=== PATIENT | male | born 1940 | race Caucasian/White ===

== ENCOUNTER 2017-09-08 13:51 | Outpatient (CLI) | payer MEDICARE, BC | END 2017-09-08 13:52 | disposition critical access hospital (66) | LOC: EMS 13:51 | PROVIDERS: ATTEND Surgery | DX: R07.81 Pleurodynia (principal); R55 Syncope and collapse; W18.39XA Other fall on same level, initial encounter; Y92.002 Bathroom of unspecified non-institutional (private) residence as the place of occurrence of the external cause | CPT/HCPCS: A0425; A0427 ==

== ENCOUNTER 2017-09-08 14:26 | Emergency (ER) | payer MEDICARE, BC ==
--- NOTE | 2017-09-08 15:36 | ED Physician Documentation ---
PD HPI SYNCOPE - Stated complaint Stated Complaint: SYNCOPE, R SIDE RIB PAIN - Chief complaint Chief Complaint: Neuro - History obtained from History obtained from: Patient, Family - History of Present Illness Witnessed: Witnessed Timing - onset: Today (at 0200) Duration: Unknown Preceding symptoms: None Associated symptoms: None. No: Seizure, Incontinant of urine, Incontinant of stool, Headache, Vision changes, Chest pain, Palpitations, Diaphoresis, Dyspnea , Nausea / vomiting, Abdominal pain Contributing factors: Other (went to urinate) Injury occurred: Fell, Head injury. No: Neck injury, Bit tongue Pain level max: 8 Pain level now: 6 Similar symptoms before: Diagnosis (seen last week for same, justice placed in head for scalp laceration.) - Additional information Additional information: Patient is a 76-year-old male who got up in the middle of the night to go to the bathroom and had a syncopal event. heard him hit the ground and found him on the floor. He did lose consciousness. Similar event 5 days ago. Has a history of atrial fibrillation and "low blood pressure". Started having rib pain today so was brought in for evaluation. Has passed out 4 times in the past year. Sees Dr. Oleary for cardiology at [facility] in [place]. He is on Pradaxa for a blood thinner. Review of Systems Ten Systems: 10 systems reviewed and negative Constitutional: denies: Fever, Chills Ears: denies: Ear pain Nose: denies: Rhinorrhea / runny nose, Congestion Throat: denies: Sore throat Cardiac: denies: Chest pain / pressure Respiratory: denies: Cough GI: denies: Abdominal Pain, Nausea, Vomiting Skin: denies: Rash Musculoskeletal: denies: Neck pain, Back pain Neurologic: denies: Focal weakness, Numbness, Confused PD PAST MEDICAL HISTORY - Past Medical History Past Medical History: Yes Cardiovascular: Atrial fibrillation Neuro: None Endocrine/Autoimmune: None - Allergies Allergies/Adverse Reactions: Allergies Allergy/AdvReac Type Severity Reaction Status Date / Time Interferons Allergy Intermediate Anaphylaxis Verified 09/03/17 13:58 - Social History Does the pt smoke?: No Smoking Status: Never smoker Does the pt drink ETOH?: Yes ETOH Use: Wine Does the pt have substance abuse?: No PD ED PE NORMAL - Vitals Vital signs reviewed: Yes - General General: Alert and oriented X 3, No acute distress, Well developed/nourished - HEENT HEENT: Atraumatic, PERRL, EOMI, Ears normal, Moist mucous membranes - Neck Neck: Supple, no meningeal sign, No bony TTP - Cardiac Cardiac: RRR - Respiratory Respiratory: No respiratory distress, Other (decreased BS on the R. TTP along multiple right ribs 3-8.) - Abdomen Abdomen: Soft, Non tender, Non distended - Back Back: No spinal TTP - Derm Derm: Warm and dry - Extremities Extremities: Other (mild TTP over the R hip. o/w normal exam.) - Neuro Neuro: Alert and oriented X 3, legal referee 2-12 intact, No motor deficit, No sensory deficit, Normal speech - Psych Psych: Normal mood, Normal affect Results - Vitals Vitals: Vital Signs - 24 hr 09/08/17 09/08/17 14:27 17:32 Temperature 36.5 C Heart Rate 96 154 H Respiratory 18 13 Rate Blood Pressure 121/80 136/82 H O2 Saturation 92 96 Oxygen O2 Source Nasal cannula Oxygen Flow Rate 2 - EKG (time done) 1438 Rate: Rate (enter#) (89) Rhythm: Atrial fibrillation Davison: Normal QRS: Normal Ischemia: Non specific changes - Labs Labs: Laboratory Tests 09/08/17 09/08/17 09/08/17 15:41 15:41 15:41 WBC 9.5 RBC 3.92 L Hgb 13.1 L Hct 38.0 L MCV 97.0 H MCH 33.4 H MCHC 34.4 RDW 13.4 Plt Count 184 MPV 7.8 Neut # 8.1 H Lymph # 0.[address] [place] # 0.8 Eos # 0.0 Baso # 0.0 Absolute Nucleated RBC 0.00 Nucleated RBC % 0.0 Sodium 135 Potassium 4.5 Chloride 103 Carbon Dioxide 24 Anion Gap 8.0 BUN 21 H Creatinine 0.9 Estimated GFR (MDRD) 82 L Glucose 125 H Calcium 8.8 Total Bilirubin 1.5 H AST 27 ALT 18 Alkaline Phosphatase 43 Troponin I < 0.04 Total Protein 7.0 Albumin 3.7 Globulin 3.3 Albumin/Globulin Ratio 1.1 Lipase 13 L - Rads (name of study) ct head Radiology: Prelim report reviewed, EMP read contemporaneously, See rad report ( Normal head CT. ) ct chest Radiology: Prelim report reviewed, EMP read contemporaneously, See rad report ( Right lateral sixth through eighth and right posterior sixth through ninth rib fractures with small right pneumothorax and moderate right hemothorax. Multiple compression fractures, likely chronic. ) R hip xray Radiology: Prelim report reviewed, EMP read contemporaneously, See rad report ( Total right hip arthroplasty with longstem femoral component without evidence of hardware failure or loosening. The alignment is anatomic. ) cxr s/p chest tube Radiology: Prelim report reviewed, EMP read contemporaneously, See rad report ( chest tube inserted on the R side. re-expanded lung. ) Procedures - Chest Tube (location) right 5th middle axillary line Chest tube preparation: Consent obtained, Time out completed, Sterile prep and drape Chest tube location: Right, Intercostal space - enter (5), Mid axillary line Chest tube anesthesia: Lidocaine (2% with epi 10ml) Chest tube size: 32 Chest tube return: Air, Blood, Connected to suction, Other (sutured with 3-0 nylon as largest suture available.) Chest tube after care: Sutured, Confirmed with xray, Pt tolerated well PD MEDICAL DECISION MAKING - ED course Complexity details: reviewed results, re-evaluated patient, considered differential, d/w patient, d/w family, d/w software developer consultant ED course: Patient is a 76-year-old male with recurrent syncope, landed on the right side, has a right-sided flail chest with a hemopneumothorax. He is on Pradaxa. A chest tube was inserted with air and blood return. It was placed to waterseal. No acute findings on head CT or a right hip x-ray. Attempted to call [facility] in [place] as his cryptographic center specialist is there, but they have no ICU beds available, therefore [facility] was contacted. 1730 - Dr. Hernandez [facility] graciously accepts in transfer. Discussed praxbind, but as pt is stable, will hold at this time. Airlift is unable to fly for several hours because of weather. Will send by ground. 1745 Patient became tachycardic after the chest tube insertion, possible reaction to the epinephrine and the lidocaine versus reaction to the Versed? Heart rate was approximately 120 at the time of transfer. Blood pressure remained stable. Departure - Departure Disposition: 02 Transfer Acute Care Hosp Clinical Impression: Anticoagulant long-term use Hemothorax with pneumothorax, traumatic Qualifiers: Encounter type: initial encounter Qualified Code(s): S27.2XXA - Traumatic hemopneumothorax, initial encounter Syncope Qualifiers: Syncope type: unspecified Qualified Code(s): R55 - Syncope and collapse Flail chest Qualifiers: Encounter type: initial encounter Fracture type: closed Qualified Code(s): S22.5XXA - Flail chest, initial encounter for closed fracture Condition: Stable Discharge Date/Time: 09/08/17 18:00
[2017-09-08 15:47] LABS: BASOPHILS % (AUTO) 0.1 %; EOSINOPHILS % (AUTO) 0.2 %; HGB - HEMOGLOBIN 13.1 g/dL (14.0-18.0); LYMPHOCYTES # (AUTO) 0.5 10^3/uL (1.5-3.5); LYMPHOCYTES % (AUTO) 5.7 %; MEAN CORPUSCULAR HEMOGLOBIN 33.4 pg (27.0-31.0); MEAN CORPUSCULAR HGB CONC 34.4 g/dL (32.0-36.0); MEAN PLATELET VOLUME 7.8 fL (7.4-11.4); MONOCYTES # (AUTO) 0.8 10^3/uL (0.0-1.0); MONOCYTES % (AUTO) 8.1 %; NEUTROPHILS # (AUTO) 8.1 10^3/uL (1.5-6.6); NEUTROPHILS % (AUTO) 85.9 %; PLT - PLATELET COUNT 184 10^3/uL (130-450); RED BLOOD COUNT 3.92 10^6/uL (4.70-6.10); RED CELL DISTRIBUTION WIDTH 13.4 % (12.0-15.0); WHITE BLOOD COUNT 9.5 x10^3/uL (4.8-10.8)
[2017-09-08 16:00] LABS: ALBUMIN 3.7 g/dL (3.2-5.5); ALBUMIN/GLOBULIN RATIO 1.1 (1.0-2.2); BILIRUBIN,TOTAL 1.5 mg/dL (0.2-1.0); CALCIUM 8.8 mg/dL (8.5-10.3); CREATININE 0.9 mg/dL (0.6-1.2)
[2017-09-08] MEDS ORDERED: HYDROmorphone 1 MG/ML SYRINGE IVP STA (16:27)
[2017-09-08] MEDS ORDERED: LIDOCAINE 2%-EPI 1:100000 20 ML MDV SUBQ STA (16:28)
--- NOTE | 2017-09-08 16:32 | CT Report ---
EXAM: CT HEAD EXAM DATE: 09/08/2017 04:13 PM. CLINICAL HISTORY: Syncope. Head injury. COMPARISON: 09/03/2017. TECHNIQUE: Multiaxial CT images were obtained from the foramen magnum to the vertex. Reformats: Coron al. IV contrast: None. In accordance with CT protocol optimization, one or more of the following dose reduction techniques w ere utilized for this exam: automated exposure control, adjustment of mA and/or KV based on patient s ize, or use of iterative reconstructive technique. FINDINGS: Parenchyma: No intraparenchymal hemorrhage. No evidence of mass, midline shift, or CT findings of inf arction. Bains-white differentiation is distinct. Extraaxial Spaces: Normal for age. No subdural or epidural collections identified. Ventricles: Normal in size and position. Sinuses and Orbits: Imaged paranasal sinuses, orbits, and mastoids show no significant abnormality. Bones: No evidence of fracture or calvarial defect. Other: None. IMPRESSION: Normal head CT. [facility] Referring Provider Line: [phone] SITE ID: [id number]
[2017-09-08] MEDS ORDERED: MIDAZOLAM 2 MG/2 ML VIAL IVP STA (16:34)
--- NOTE | 2017-09-08 16:34 | XRAY Preliminary Report ---
Exam: XR HIP W/PELVIS 2-3V RT IMPRESSION: Total right hip arthroplasty with longstem femoral component without evidence of hardware failure or loosening. The alignment is anatomic. [facility] SITE ID: [id number]
--- NOTE | 2017-09-08 16:34 | XRAY Report ---
EXAM: RIGHT HIP AND PELVIS RADIOGRAPHY EXAM DATE: 09/08/2017 04:28 PM. HISTORY: Syncope, R hip pain. COMPARISONS: Pelvic radiograph dated 09/03/2017. TECHNIQUE: 1 view of the pelvis and 2 view of the hip. FINDINGS: Bones: Normal. No fracture or bone lesion. Joints: Total right hip arthroplasty with long stem femoral component is again demonstrated without e vidence of hardware failure or loosening. The alignment is anatomic. Soft Tissues: Normal. No soft tissue swelling. IMPRESSION: Total right hip arthroplasty with longstem femoral component without evidence of hardware failure or loosening. The alignment is anatomic. [facility] Referring Provider Line: [phone] SITE ID: [id number]
--- NOTE | 2017-09-08 16:56 | CT Report ---
EXAM: CT CHEST EXAM DATE: 09/08/2017 04:13 PM. CLINICAL HISTORY: Syncope. Right rib pain. COMPARISONS: None. TECHNIQUE: Routine helical CT imaging was performed through the chest. IV contrast: None. Reconstruct ions: Coronal and sagittal. In accordance with CT protocol optimization, one or more of the following dose reduction techniques w ere utilized for this exam: automated exposure control, adjustment of mA and/or KV based on patient s ize, or use of iterative reconstructive technique. FINDINGS: Lungs/Pleura: Small right pneumothorax and moderate right complex pleural effusion. Extensive right l ower lobe atelectasis. On the left, mild dependent atelectasis with no effusion or pneumothorax. Mediastinum: Mild aortic and coronary artery calcification. No adenopathy or masses. The heart and gr eat vessels are normal. Bones: Fractures of the right lateral sixth through eighth ribs and right posterior sixth through tapan th ribs. There are also old rib fractures on the right. There are multiple mild compression fractures including T4, T7, T10, and L1, likely chronic. Visualized Abdomen: Unremarkable. Other: None. IMPRESSION: 1. Right lateral sixth through eighth and right posterior sixth through ninth rib fractures with smal l right pneumothorax and moderate right hemothorax. 2. Multiple compression fractures, likely chronic. RAD[facility] The critical result notification system was initiated by Dr. Judson Torres at 16:48 hrs on 09/08/17. The above findings were discussed with Dr. Mojica by Dr. Judson Torres at 16:54 hrs on 09/08/17. Referring Provider Line: [phone] SITE ID: [id number]
[2017-09-08 17:33] VITALS: BP 136/82
--- NOTE | 2017-09-08 17:39 | XRAY Preliminary Report ---
Exam: XR CHEST 1 VIEW X-RAY IMPRESSION: 1. Small residual right-sided pneumothorax after placement of a chest tube. The effusion component ogden s decreased in size. Persistent right lower lobe atelectasis. 2. No left pneumothorax or effusion. 3. Mild cardiac enlargement. RADI SITE ID: [id number]
--- NOTE | 2017-09-08 18:09 | XRAY Report ---
EXAM: CHEST RADIOGRAPHY EXAM DATE: 09/08/2017 05:29 PM. CLINICAL HISTORY: Status post chest tube placement. COMPARISON: 09/08/2017. TECHNIQUE: 1 view. FINDINGS: Lungs/Pleura: Right-sided chest tube terminates in the mid medial right hemithorax. Small residual right-sided pneu mothorax. The largest pneumothorax component is identified right lung base. Mild perihilar interstiti al densities could represent areas of atelectasis. No large left pneumothorax or effusion. EKG leads overlie the chest. Mediastinum: Stable mild cardiac enlargement. Other: Multiple displaced posterior medial mid and lower right-sided rib fractures are again identifi ed but better seen on prior CT. IMPRESSION: 1. Small residual right-sided pneumothorax after placement of a chest tube. The effusion component ogden s decreased in size. Persistent right lower lobe atelectasis. 2. No left pneumothorax or effusion. 3. Mild cardiac enlargement. [facility] Referring Provider Line: [phone] SITE ID: [id number]
== END 2017-09-08 18:00 | disposition short-term general hospital (02) ==
LOC: EDUNIT# → ED 14:26
DX: S27.2XXA Traumatic hemopneumothorax, initial encounter (principal); S22.5XXA Flail chest, initial encounter for closed fracture; W18.39XA Other fall on same level, initial encounter; Y92.019 Unspecified place in single-family (private) house as the place of occurrence of the external cause; I48.91 Unspecified atrial fibrillation; Z79.01 Long term (current) use of anticoagulants
CPT/HCPCS: 32551; 36415; 70450; 71045; 71250; 73502; 80053; 83690; 84484; 85025; 93005; 96374; 99284; 99285; J1170

== ENCOUNTER 2017-09-08 18:07 | Outpatient (CLI) | payer BC, MEDICARE | END 2017-09-08 18:08 | disposition home or self-care (01) | LOC: EMS 18:07 | PROVIDERS: ATTEND Surgery | DX: S27.2XXA Traumatic hemopneumothorax, initial encounter (principal); W18.39XA Other fall on same level, initial encounter | CPT/HCPCS: A0170; A0425; A0427 ==

== ENCOUNTER 2017-10-17 11:12 | Outpatient (CLI) | payer MEDICARE, BC ==
--- NOTE | 2017-10-17 15:36 | XRAY Report ---
TWO VIEW CHEST: 10/17/2017 CLINICAL INDICATION: History of right pneumothorax with rib fractures, follow up. FINDINGS: Frontal and lateral views of the chest demonstrate a normal cardiac silhouette. The lungs are hyperinflated, compatible with COPD. Right pneumothorax has resolved. Right pleural thickening is present, and healing rib fractures are noted. The left lung is clear. IMPRESSION: RESOLUTION OF RIGHT PNEUMOTHORAX. MULTIPLE HEALING RIGHT RIB FRACTURES. RIGHT PLEURAL THICKENING. TD: 10/17/2017 15:35
== END 2017-10-17 11:13 | disposition home or self-care (01) ==
LOC: DI.S 11:12
PROVIDERS: ATTEND Registered Nurse
DX: S22.41XD Multiple fractures of ribs, right side, subsequent encounter for fracture with routine healing (principal); J92.9 Pleural plaque without asbestos
CPT/HCPCS: 71046

== ENCOUNTER 2017-11-03 06:36 | Outpatient (CLI) | payer MEDICARE, BC | END 2017-11-03 06:37 | disposition critical access hospital (66) | LOC: EMS 06:36 | PROVIDERS: ATTEND Surgery | DX: S01.01XA Laceration without foreign body of scalp, initial encounter (principal); Z79.01 Long term (current) use of anticoagulants; W19.XXXA Unspecified fall, initial encounter; Z91.81 History of falling; Y92.002 Bathroom of unspecified non-institutional (private) residence as the place of occurrence of the external cause | CPT/HCPCS: A0425; A0429 ==

== ENCOUNTER 2017-11-03 07:07 | Emergency (ER) | payer MEDICARE, BC ==
--- NOTE | 2017-11-03 07:20 | ED Physician Documentation ---
PD HPI SYNCOPE - Stated complaint Stated Complaint: GLF - History obtained from History obtained from: Patient, Family, EMS - History of Present Illness Witnessed: Unwitnessed Timing - onset: Enter time (0600), Today Duration: Seconds Preceding symptoms: Unknown Injury occurred: Fell, Head injury Similar symptoms before: Diagnosis (syncope with hypotension and multiple rib fractures) - Additional information Additional information: 77 y/o male with mild dementia has had a problem with pre-syncope for about a year now and he has had syncope about 2 months ago that caused multiple rib fractures and pneumothorax. He has recovered from that and he is in the process of continued work up for the syncope. He has hypotension with systolics in the 90's and he is in afib and on pradaxa. This morning he was in the bathroom and collapsed striking his head. He has a large laceration to the left occiput. He does not feel particularly bad right now. Feels he has a little blurring of the vision but not double vision. Review of Systems Constitutional: denies: Fever Eyes: reports: Decreased vision Ears: denies: Ear pain Nose: denies: Rhinorrhea / runny nose, Congestion Throat: denies: Sore throat Cardiac: denies: Chest pain / pressure, Palpitations Respiratory: denies: Dyspnea, Cough GI: denies: Abdominal Pain, Nausea, Vomiting, Constipation, Diarrhea : denies: Dysuria, Frequency Skin: denies: Rash Musculoskeletal: reports: Extremity pain. denies: Neck pain, Back pain Neurologic: reports: Confused, Headache, Head injury. denies: Generalized weakness, Focal weakness, Numbness PD PAST MEDICAL HISTORY - Past Medical History Cardiovascular: Atrial fibrillation Neuro: None Endocrine/Autoimmune: None - Present Medications Home Medications: Ambulatory Orders Medication Instructions Recorded Confirmed Alendronate Sodium 11/03/17 Dabigatran [Pradaxa] 11/03/17 Digoxin 11/03/17 Midodrine HCl 11/03/17 - Allergies Allergies/Adverse Reactions: Allergies Allergy/AdvReac Type Severity Reaction Status Date / Time Interferons Allergy Intermediate Anaphylaxis Verified 09/03/17 13:58 - Social History Does the pt smoke?: No Smoking Status: Never smoker Does the pt drink ETOH?: Yes Does the pt have substance abuse?: No PD ED PE NORMAL - Vitals Vital signs reviewed: Yes (tachy and hypertensive) - General General: No acute distress, Well developed/nourished, Other (The patient is alert and oreinted to place but not time. ) - HEENT HEENT: PERRL, EOMI, Other (There is a 5cm laceration to the left parietal/ occipital scalp, with a depressed skull fracture that is very tender in the center. ) - Neck Neck: Supple, no meningeal sign, No bony TTP - Cardiac Cardiac: RRR, No murmur - Respiratory Respiratory: No respiratory distress, Clear bilaterally - Abdomen Abdomen: Soft, Non tender - Back Back: No CVA TTP, No spinal TTP - Derm Derm: Normal color, Warm and dry, No rash - Extremities Extremities: No deformity, No edema - Neuro Neuro: customer service teller 2-12 intact, No motor deficit, No sensory deficit, Normal speech Eye Opening: Spontaneous Motor: Obeys Commands Verbal: Confused GCS Score: 14 - Psych Psych: Normal mood, Normal affect Results - Vitals Vitals: Vital Signs - 24 hr 11/03/17 11/03/17 07:09 08:36 Temperature 36.7 C Heart Rate 103 H Respiratory 16 Rate Blood Pressure 133/97 H O2 Saturation 100 Oxygen O2 Source Room air - EKG (time done) 0716 Rate: Rate (enter#) (96) [place]: RAD Ischemia: Normal ST segments Compare to prior EKG: Changed from prior EKG (SPT 09-08-17 QT interval is now normal ) Computer interpretation: Agree with computer - Labs Labs: Laboratory Tests 11/03/17 11/03/17 11/03/17 07:22 07:22 07:22 WBC 4.4 L RBC 4.46 L Hgb 13.8 L Hct 41.3 L MCV 92.5 MCH 30.9 MCHC 33.4 RDW 13.7 Plt Count 200 MPV 7.6 Neut # 3.2 Lymph # 0.8 L [place] # 0.3 Eos # 0.1 Baso # 0.0 Absolute Nucleated RBC 0.00 Nucleated RBC % 0.1 Sodium 138 Potassium 4.4 Chloride 105 Carbon Dioxide 26 Anion Gap 7.0 BUN 21 H Creatinine 0.8 Estimated GFR (MDRD) 93 Glucose 101 H Calcium 9.4 Total Bilirubin 0.6 AST 24 ALT 17 Alkaline Phosphatase 56 Troponin I < 0.04 Total Protein 7.7 Albumin 4.1 Globulin 3.6 Albumin/Globulin Ratio 1.1 Lipase 30 Cortisol AM Sample 11/03/17 07:22 WBC RBC Hgb Hct MCV MCH MCHC RDW Plt Count MPV Neut # Lymph # [place] # Eos # Baso # Absolute Nucleated RBC Nucleated RBC % Sodium Potassium Chloride Carbon Dioxide Anion Gap BUN Creatinine Estimated GFR (MDRD) Glucose Calcium Total Bilirubin AST ALT Alkaline Phosphatase Troponin I Total Protein Albumin Globulin Albumin/Globulin Ratio Lipase Cortisol AM Sample 24.4 - Rads (name of study) CT head without Radiology: Prelim report reviewed (Impression: 1. Acute depressed left parietal skull fracture. There is a small overlying scalp hematoma but no intracranial hemorrhage. 2. Generalized age-related cortical atrophic changes), EMP read indepedently, See rad report 2 veiw chest Radiology: Prelim report reviewed (Impression: 1. Chronic parenchymal and pleural changes of the right hemithorax stable. 2. No new disease.), EMP read indepedently, See rad report Procedures - Laceration (location) scalp Length in cm: 5 Wound type: Linear Neurovascular status: Sensory intact, Motor intact, Vascular intact Skin layer closure: Justice, Interrupted (2) Other: Patient tolerated well, No complications, Neurovascular intact, Dressing applied Complexity: Simple - IVC sono (time) 0710 Bedside IVC sono: IVC measures (cm) (1.01), IVC collapsed c insp (cm) (complete) , Dehydration (est 1 liter deficit) PD MEDICAL DECISION MAKING - ED course Complexity details: reviewed old records, reviewed results, re-evaluated patient , considered differential, d/w patient, d/w family ED course: 77-year-old male with a history of presyncope and syncope has had a syncopal episode this morning has fallen in his bathroom and has a depressed open skull fracture. He is on Pradaxa and there is no evidence of intracranial hemorrhage at this juncture. The patient has a nonfocal neurologic exam. Dr. Leavitt at [facility] is contacted in the case and recommends reversal of the pradaxa and transport to [facility]. The patient is administered 2.5mg praxbind X 2 and he will receive IV saline at 150ml/hr en-route with an estimated deficit of 1 liter by interrogation of the IVC. 2 justice are placed without anesthetic to the large laceration on the scalp and a dressing is applied. The patient's transport is changed from ground to air at the direction of medical control. Airlift had to abandon the flight related to weather and he is transported by ground. Departure - Departure Disposition: 02 Transfer Acute Care Hosp Clinical Impression: Dehydration Scalp laceration Qualifiers: Encounter type: initial encounter Qualified Code(s): S01.01XA - Laceration without foreign body of scalp, initial encounter Open skull fracture Qualifiers: Encounter type: initial encounter Skull bone/location: parietal bone Qualified Code(s): S02.0XXB - Fracture of vault of skull, initial encounter for open fracture
[2017-11-03 07:28] VITALS: BP 133/97
[2017-11-03 07:31] LABS: BASOPHILS % (AUTO) 0.6 %; EOSINOPHILS # (AUTO) 0.1 10^3/uL (0.0-0.7); EOSINOPHILS % (AUTO) 2.6 %; HGB - HEMOGLOBIN 13.8 g/dL (14.0-18.0); LYMPHOCYTES # (AUTO) 0.8 10^3/uL (1.5-3.5); LYMPHOCYTES % (AUTO) 17.7 %; MEAN CORPUSCULAR HEMOGLOBIN 30.9 pg (27.0-31.0); MEAN CORPUSCULAR HGB CONC 33.4 g/dL (32.0-36.0); MEAN CORPUSCULAR VOLUME 92.5 fL (80.0-94.0); MEAN PLATELET VOLUME 7.6 fL (7.4-11.4); MONOCYTES # (AUTO) 0.3 10^3/uL (0.0-1.0); MONOCYTES % (AUTO) 6.9 %; NEUTROPHILS # (AUTO) 3.2 10^3/uL (1.5-6.6); NEUTROPHILS % (AUTO) 72.2 %; PLT - PLATELET COUNT 200 10^3/uL (130-450); RED BLOOD COUNT 4.46 10^6/uL (4.70-6.10); RED CELL DISTRIBUTION WIDTH 13.7 % (12.0-15.0); WHITE BLOOD COUNT 4.4 x10^3/uL (4.8-10.8)
[2017-11-03 07:44] LABS: ALBUMIN 4.1 g/dL (3.2-5.5); ALBUMIN/GLOBULIN RATIO 1.1 (1.0-2.2); BILIRUBIN,TOTAL 0.6 mg/dL (0.2-1.0); CALCIUM 9.4 mg/dL (8.5-10.3); CREATININE 0.8 mg/dL (0.6-1.2); TOTAL PROTEIN 7.7 g/dL (6.7-8.2)
--- NOTE | 2017-11-03 08:01 | XRAY Report ---
EXAM: CHEST RADIOGRAPHY EXAM DATE: 11/03/2017 07:53 AM. CLINICAL HISTORY: Syncope. COMPARISON: 10/17/2017. 09/08/2017. TECHNIQUE: 2 views. FINDINGS: Lungs/Pleura: Chronic right midlung and right basilar parenchymal opacities likely parenchymal scarri ng. Right basilar and right lateral pleural thickening, unchanged. No new focal abnormality. No conso lidation. No vascular congestion. No pneumothorax. Mediastinum: Heart size and mediastinal contours are stable. Other: Healed right-sided rib fractures. Degenerative changes of the thoracic spine and both shoulder s. IMPRESSION: 1. Chronic parenchymal and pleural changes of the right hemithorax, stable. 2. No new acute disease. [facility] Referring Provider Line: [phone] SITE ID: [id number]
--- NOTE | 2017-11-03 08:11 | CT Report ---
EXAM: CT HEAD EXAM DATE: 11/03/2017 07:36 AM. CLINICAL HISTORY: Syncope, fall, head injury pradaxa. COMPARISON: 09/08/2017. TECHNIQUE: Multiaxial CT images were obtained from the foramen magnum to the vertex. Reformats: Coron al. IV contrast: None. In accordance with CT protocol optimization, one or more of the following dose reduction techniques w ere utilized for this exam: automated exposure control, adjustment of mA and/or KV based on patient s ize, or use of iterative reconstructive technique. FINDINGS: Parenchyma: No intraparenchymal hemorrhage. No evidence of mass, midline shift, or CT findings of acu te infarction. Bains-white differentiation is distinct. Diffuse mild chronic microangiopathic white ma tter changes are evident. Small intracranial gas along the falx, likely secondary to direct injury. Extraaxial Spaces: No subdural or epidural collections identified. Ventricles: The ventricles and cortical sulci are enlarged, consistent with age-related tissue loss. Sinuses and orbits: Imaged paranasal sinuses, orbits, and mastoids show no significant abnormality. Bones: Acute 4 cm diameter left parietal fracture with up to 8 mm depression. Other: Parietal scalp hematoma overlying the fracture IMPRESSION: 1. Acute depressed left parietal skull fracture. There is a small overlying scalp hematoma but no int racranial hemorrhage. 2. Generalized age-related cortical atrophic changes. RADIA The above findings were discussed with Dr. Owen by Dr. Kamran Fan at 08:04 hrs on 11/03/17. Referring Provider Line: [phone] SITE ID: [id number]
== END 2017-11-03 09:20 | disposition short-term general hospital (02) ==
LOC: EDUNIT# → ED 07:07
DX: S02.0XXB Fracture of vault of skull, initial encounter for open fracture (principal); W18.39XA Other fall on same level, initial encounter; Y92.002 Bathroom of unspecified non-institutional (private) residence as the place of occurrence of the external cause; E86.0 Dehydration; I48.91 Unspecified atrial fibrillation; Z79.01 Long term (current) use of anticoagulants
CPT/HCPCS: 12002; 36415; 70450; 71046; 80053; 82533; 83690; 84484; 85025; 93005; 96374; 99284; 99285

== ENCOUNTER 2017-11-03 09:23 | Outpatient (CLI) | payer MEDICARE, BC | END 2017-11-03 09:24 | disposition short-term general hospital (02) | LOC: EMS 09:23 | PROVIDERS: ATTEND Surgery | DX: S02.91XB Unspecified fracture of skull, initial encounter for open fracture (principal); W19.XXXA Unspecified fall, initial encounter | CPT/HCPCS: A0170; A0425; A0426 ==

== ENCOUNTER 2017-11-30 13:35 | Outpatient (CLI) | payer MEDICARE, BC | END 2017-11-30 13:36 | disposition home or self-care (01) | LOC: DI 13:35 | PROVIDERS: ATTEND Internal Medicine Cardiovascular Disease | DX: I95.1 Orthostatic hypotension (principal); I48.91 Unspecified atrial fibrillation | CPT/HCPCS: 93306 ==

== ENCOUNTER 2019-03-22 14:56 | Outpatient (CLI) | payer MEDICARE ==
--- NOTE | 2019-03-23 07:20 | XRAY Report ---
Reason: COUGH Procedure Date: 03/22/2019 Accession Number: [id number] / [id number] Procedure: XRS - Chest 2 View X-Ray CPT Code: 88452 FULL RESULT: EXAM: CHEST RADIOGRAPHY EXAM DATE: 03/22/2019 03:15 PM. CLINICAL HISTORY: Cough. COMPARISON: CHEST 2 VIEW 11/03/2017 7:35 AM CHEST W/O 09/08/2017 4:00 PM. TECHNIQUE: 2 views. FINDINGS: Lungs/Pleura: Large volumes. No focal pneumonia or overt edema. No pneumothorax or large effusion. Chronic blunting of the costophrenic angles, likely due to COPD. Mediastinum: Within exam limitations, cardiomediastinal contour is normal. Other: Old right rib fractures. IMPRESSION: COPD without acute process seen in the chest. RADIA
== END 2019-03-22 14:57 | disposition home or self-care (01) ==
LOC: DI.S 14:56
PROVIDERS: ATTEND Family Medicine
DX: J44.9 Chronic obstructive pulmonary disease, unspecified (principal)
CPT/HCPCS: 71046

== ENCOUNTER 2019-03-26 16:10 | Outpatient (CLI) | payer MEDICARE, BC | END 2019-03-26 16:11 | disposition critical access hospital (66) | LOC: EMS 16:10 | PROVIDERS: ATTEND Surgery | DX: R41.82 Altered mental status, unspecified (principal); R45.1 Restlessness and agitation; R50.9 Fever, unspecified | CPT/HCPCS: A0425; A0427 ==

== ENCOUNTER 2019-03-26 16:42 | Emergency (ER) | payer MEDICARE, BC ==
--- NOTE | 2019-03-26 16:53 | ED Physician Documentation ---
PD HPI ALTERED MENTAL STATUS - Stated complaint Stated Complaint: AMS - Chief complaint Chief Complaint: Neuro - History obtained from History obtained from: Patient, Family, EMS - History of Present Illness Timing - onset: Other (78-year-old gentleman with Lewy body dementia, atrial fibrillation. Most of the history is from the . About 4 to 5 days ago he started become fatigued. A little more cough than normal. He had an x-ray in the clinic that was reportedly negative. Today he had a shaking episode and appeared to have chills and subsequently was found to be febrile. He is also complaining that he has to urinate more.) Review of Systems Unable to obtain: AMS PD PAST MEDICAL HISTORY - Past Medical History Cardiovascular: Atrial fibrillation Endocrine/Autoimmune: None - Present Medications Home Medications: Ambulatory Orders Medication Instructions Recorded Confirmed Alendronate Sodium 2 tab PO OAW 11/03/17 03/26/19 Digoxin 1 tab PO DAILY 11/03/17 Amoxicillin 500 mg PO TID #20 capsule 03/26/19 Carbidopa/Levodopa 1 each PO TID 03/26/19 03/26/19 [Carbidopa-Levodopa 25-100 Tab] Donepezil HCl [Aricept] 10 mg PO DAILY 03/26/19 03/26/19 Fludrocortisone [Florinef] 3 tab PO DAILY 03/26/19 03/26/19 - Allergies Allergies/Adverse Reactions: Allergies Allergy/AdvReac Type Severity Reaction Status Date / Time Interferons Allergy Intermediate Anaphylaxis Verified 03/26/19 16:51 - Social History Does the pt smoke?: No Smoking Status: Never smoker Does the pt drink ETOH?: Yes Does the pt have substance abuse?: No - Immunizations Immunizations are current?: Yes - POLST Patient has POLST: Yes PD ED PE NORMAL - Vitals Vital signs reviewed: Yes - General General: Other (He is alert and cooperative but slow to answer questions.) - HEENT HEENT: PERRL, EOMI - Neck Neck: Supple, no meningeal sign, No bony TTP - Cardiac Cardiac: RRR, No murmur - Respiratory Respiratory: No respiratory distress, Clear bilaterally - Abdomen Abdomen: Soft, Non tender - Back Back: No CVA TTP, No spinal TTP - Derm Derm: Normal color, Warm and dry - Extremities Extremities: No edema, No calf tenderness / cord - Neuro Neuro: pediatric physical therapist 2-12 intact Eye Opening: Spontaneous Motor: Obeys Commands Verbal: Confused GCS Score: 14 Results - Vitals Vitals: Vital Signs - 24 hr 03/26/19 16:45 Temperature 38.7 C H Heart Rate 95 Respiratory 18 Rate Blood Pressure 162/104 H O2 Saturation 97 Oxygen O2 Source Room air - Labs Labs: Laboratory Tests 03/26/19 03/26/19 03/26/19 17:00 17:00 17:00 WBC 5.4 RBC 3.99 L Hgb 13.1 L Hct 39.3 L MCV 98.5 H MCH 32.8 H MCHC 33.3 RDW 12.5 Plt Count 196 MPV 8.8 Neut # (Auto) 4.6 Lymph # (Auto) 0.3 L [place] # (Auto) 0.5 Eos # (Auto) 0.0 Baso # (Auto) 0.0 Absolute Nucleated RBC 0.00 Nucleated RBC % 0.0 PT 13.8 H INR 1.2 APTT 27.6 Sodium 140 Potassium 3.5 Chloride 100 L Carbon Dioxide 29 Anion Gap 11.0 BUN 14 Creatinine 1.0 Estimated GFR (MDRD) 72 L Glucose 126 H Lactic Acid Calcium 8.9 Total Bilirubin 0.8 AST 20 ALT < 10 L Alkaline Phosphatase 37 L Total Protein 7.3 Albumin 3.7 Globulin 3.6 Albumin/Globulin Ratio 1.0 Lipase 26 Urine Color Urine Clarity Urine pH Ur Specific [place] Urine Protein Urine Glucose (UA) Urine Ketones Urine Occult Blood Urine Nitrite Urine Bilirubin Urine Urobilinogen Ur Leukocyte Esterase Ur Microscopic Review Urine Culture Comments Last Dose Date Last Dose Time Digoxin 03/26/19 03/26/19 03/26/19 17:00 17:00 17:11 WBC RBC Hgb Hct MCV MCH MCHC RDW Plt Count MPV Neut # (Auto) Lymph # (Auto) [place] # (Auto) Eos # (Auto) Baso # (Auto) Absolute Nucleated RBC Nucleated RBC % PT INR APTT Sodium Potassium Chloride Carbon Dioxide Anion Gap BUN Creatinine Estimated GFR (MDRD) Glucose Lactic Acid 0.9 Calcium Total Bilirubin AST ALT Alkaline Phosphatase Total Protein Albumin Globulin Albumin/Globulin Ratio Lipase Urine Color YELLOW Urine Clarity CLEAR Urine pH 7.5 Ur Specific [place] 1.020 Urine Protein NEGATIVE Urine Glucose (UA) NEGATIVE Urine Ketones NEGATIVE Urine Occult Blood NEGATIVE Urine Nitrite NEGATIVE Urine Bilirubin NEGATIVE Urine Urobilinogen 0.2 (NORMAL) Ur Leukocyte Esterase NEGATIVE Ur Microscopic Review NOT INDICATED Urine Culture Comments NOT INDICATED Last Dose Date UNKNOWN Last Dose Time UNKNOWN Digoxin 0.3 PD MEDICAL DECISION MAKING - ED course ED course: This is a 78-year-old gentleman with Lewy body dementia and Parkinson's who presents with shaking chills and a fever today, no clear source on work-up or exam. No evidence of meningitis clinically. Lab work was benign with clear chest x-ray, normal white count, negative lactate. is a sole home caregiver and they were offered observation in the hospital which they declined preferring discharge. Given his advanced age and comorbidities antibiotics were given. Departure - Departure Disposition: Home, Self Care Clinical Impression: Lewy body dementia Qualifiers: Dementia behavioral disturbance: with behavioral disturbance Qualified Code(s): G31.83 - Dementia with Lewy bodies; F02.81 - Dementia in other diseases classified elsewhere with behavioral disturbance Fever Qualifiers: Fever type: due to other condition Qualified Code(s): R50.81 - Fever presenting with conditions classified elsewhere Condition: Good Record reviewed to determine appropriate education?: Yes Instructions: ED Fever Unconf Cause Prescriptions: Amoxicillin 500 mg PO TID #20 capsule Comments: As discussed, I think that Mr. Colon probably has a flulike illness. Return anytime if worsening or in a few days with your doctor if not improved.
[2019-03-26 17:08] LABS: EOSINOPHILS % (AUTO) 0.4 %; HGB - HEMOGLOBIN 13.1 g/dL (14.0-18.0); LYMPHOCYTES # (AUTO) 0.3 10^3/uL (1.5-3.5); LYMPHOCYTES % (AUTO) 5.2 %; MEAN CORPUSCULAR HEMOGLOBIN 32.8 pg (27.0-31.0); MEAN CORPUSCULAR HGB CONC 33.3 g/dL (32.0-36.0); MEAN CORPUSCULAR VOLUME 98.5 fL (80.0-94.0); MEAN PLATELET VOLUME 8.8 fL (7.4-11.4); MONOCYTES # (AUTO) 0.5 10^3/uL (0.0-1.0); MONOCYTES % (AUTO) 8.3 %; NEUTROPHILS # (AUTO) 4.6 10^3/uL (1.5-6.6); NEUTROPHILS % (AUTO) 85.7 %; PLT - PLATELET COUNT 196 10^3/uL (130-450); RED BLOOD COUNT 3.99 10^6/uL (4.70-6.10); RED CELL DISTRIBUTION WIDTH 12.5 % (12.0-15.0); WHITE BLOOD COUNT 5.4 x10^3/uL (4.8-10.8)
[2019-03-26 17:19] LABS: BILIRUBIN,URINE NEGATIVE (NEGATIVE); GLUCOSE, URINE (UA) NEGATIVE (NEGATIVE); KETONES,URINE (UA) NEGATIVE (NEGATIVE); LEUKOCYTE ESTERASE, URINE NEGATIVE (NEGATIVE); NITRITE,URINE NEGATIVE (NEGATIVE); OCCULT BLOOD,URINE NEGATIVE (NEGATIVE); PH,URINE 7.5 PH (5.0-7.5); PROTEIN,URINE NEGATIVE (NEGATIVE); UROBILINOGEN,URINE 0.2 (NORMAL) E.U./dL (NORMAL)
[2019-03-26 17:20] LABS: INR 1.2 (0.8-1.2); PT - PROTHROMBIN TIME 13.8 secs (9.9-12.6)
[2019-03-26 17:21] LABS: CLARITY,URINE CLEAR (CLEAR)
[2019-03-26 17:23] LABS: ALBUMIN 3.7 g/dL (3.2-5.5); ALKALINE PHOSPHATASE 37 IU/L (42-121); ALT ALANINE AMINOTRANSFERASE < 10 IU/L (10-60); AST ASPARTATE AMINOTRANSFERASE 20 IU/L (10-42); BILIRUBIN,TOTAL 0.8 mg/dL (0.2-1.0); BUN - BLOOD UREA NITROGEN 14 mg/dL (6-20); CALCIUM 8.9 mg/dL (8.5-10.3); CARBON DIOXIDE - CO2 29 mmol/L (21-32); CHLORIDE 100 mmol/L (101-111); GFR - MDRD 72 (>89); GLUCOSE 126 mg/dL (70-100); LIPASE 26 U/L (22-51); SODIUM 140 mmol/L (135-145); TOTAL PROTEIN 7.3 g/dL (6.7-8.2)
[2019-03-26 17:27] LABS: DIGOXIN 0.3 ng/mL; PARTIAL THROMBOPLASTIN TIME 27.6 secs (24.9-33.3)
--- NOTE | 2019-03-26 17:52 | XRAY Report ---
Reason: cough fever Procedure Date: 03/26/2019 Accession Number: [id number] / [id number] Procedure: XR - Chest 1 View X-Ray CPT Code: 85364 FULL RESULT: EXAM: CHEST RADIOGRAPHY EXAM DATE: 03/26/2019 05:20 PM. CLINICAL HISTORY: Cough fever. COMPARISON: CHEST 2 VIEW 03/22/2019 3:18 PM. TECHNIQUE: 1 view. FINDINGS: Lungs/Pleura: No dense consolidation. No pneumothorax. Stable mild blunting of the costophrenic sulci. Changes of COPD. Mediastinum: Heart and mediastinal contours are unremarkable. Other: Old right-sided rib fractures. IMPRESSION: No interval change. Stable mild pleural thickening or effusion bilaterally. COPD. RADIA
[2019-03-26] MEDS ORDERED: AMOXICILLIN 250 MG CAPSULE PO STA (18:16)
[2019-03-26 18:34] VITALS: BP 156/90
== END 2019-03-26 18:34 | disposition home or self-care (01) ==
LOC: EDUNIT# → ED 16:42
DX: G31.83 Neurocognitive disorder with Lewy bodies (principal); F02.81 Dementia in other diseases classified elsewhere, unspecified severity, with behavioral disturbance; R50.81 Fever presenting with conditions classified elsewhere; I48.91 Unspecified atrial fibrillation
CPT/HCPCS: 36415; 71045; 80053; 80162; 81003; 83605; 83690; 85025; 85610; 85730; 87040; 99281; 99283; A9270; 81001; 87086

== ENCOUNTER 2019-05-02 13:39 | Outpatient (CLI) | payer MEDICARE, BC ==
[2019-05-02 14:04] LABS: CALCIUM 9.2 mg/dL (8.5-10.3); CREATININE 1.1 mg/dL (0.6-1.2)
== END 2019-05-02 13:40 | disposition home or self-care (01) ==
LOC: LAB 13:39
PROVIDERS: ATTEND Internal Medicine Cardiovascular Disease
DX: I48.2 Chronic atrial fibrillation (principal)
CPT/HCPCS: 36415; 80048

== ENCOUNTER 2019-05-03 15:46 | Emergency (ER) | payer MEDICARE, BC ==
[2019-05-03 16:06] VITALS: BP 158/86
--- NOTE | 2019-05-03 16:48 | ED Physician Documentation ---
PD HPI UPPER EXT INJURY - Stated complaint Stated Complaint: LT SHOULDER PX - Chief complaint Chief Complaint: Ext Problem - History obtained from History obtained from: Patient, Family () - History of Present Illness Location: Left, Shoulder Type of injury: Fall Where injury occurred: Home Timing - onset: How many minutes ago (30) Worsened by: Moving, Palpating Similar symptoms before: Has not had sx before - Additonal information Additional information: The patient is a 78-year-old male with a history of Lewy body dementia, Parkinsons disease, frequent falls, osteoporosis, and previous skull fracture, who presents with pain in his left shoulder after falling off a stool impacting his left shoulder on concrete floor about one half hour prior to arrival. He denies any other injuries. He did not hit his head or lose consciousness. He has been ambulatory since the incident occurred, but complains of pain in his left shoulder, particularly with movement. He is right hand dominant. Review of Systems Constitutional: denies: Fever Ears: denies: Tinnitus/ringing Nose: denies: Congestion Cardiac: denies: Chest pain / pressure Respiratory: denies: Dyspnea, Cough GI: denies: Abdominal Pain, Nausea, Vomiting : denies: Dysuria Skin: denies: Abrasion (s), Laceration (s) Musculoskeletal: reports: Extremity pain (left shoulder.). denies: Neck pain, Back pain Neurologic: denies: Focal weakness, Numbness, Headache, Head injury, LOC PD PAST MEDICAL HISTORY - Past Medical History Past Medical History: Yes Cardiovascular: Atrial fibrillation Respiratory: None Neuro: Dementia, Parkinson's Endocrine/Autoimmune: None GI: None : Incontinence HEENT: None Psych: None Derm: None Other Past Medical History: lewy body dementia - Past Surgical History Past Surgical History: Yes Ortho: Hip replacement - Present Medications Home Medications: Ambulatory Orders Medication Instructions Recorded Confirmed Alendronate Sodium 2 tab PO OAW 11/03/17 03/26/19 Digoxin 1 tab PO DAILY 11/03/17 Amoxicillin 500 mg PO TID #20 capsule 03/26/19 Carbidopa/Levodopa 1 each PO TID 03/26/19 03/26/19 [Carbidopa-Levodopa 25-100 Tab] Donepezil HCl [Aricept] 10 mg PO DAILY 03/26/19 03/26/19 Fludrocortisone [Florinef] 3 tab PO DAILY 03/26/19 03/26/19 - Allergies Allergies/Adverse Reactions: Allergies Allergy/AdvReac Type Severity Reaction Status Date / Time Interferons Allergy Intermediate Anaphylaxis Verified 05/03/19 15:50 - Social History Does the pt smoke?: No Smoking Status: Never smoker Does the pt drink ETOH?: Yes Does the pt have substance abuse?: No - Immunizations Immunizations are current?: Yes - POLST Patient has POLST: Yes PD ED PE NORMAL - Vitals Vital signs reviewed: Yes (initially hypertensive.) - General General: Well developed/nourished, Other (alert, elderly male who is oriented 2, and defers to his for answers to questions.) - HEENT HEENT: Atraumatic, EOMI - Neck Neck: No bony TTP - Cardiac Cardiac: Other (Regular rate, irregularly irregular rhythm.) - Respiratory Respiratory: No respiratory distress, Clear bilaterally, Other (No chest wall tenderness to palpation.) - Abdomen Abdomen: Soft, Non tender - Back Back: No spinal TTP - Derm Derm: No rash - Extremities Extremities: No deformity, Other (There is tenderness to palpation at the proximal humerus. Distal neurovascular is intact.) - Neuro Neuro: No motor deficit, Normal speech, Other (Alert, oriented 2. No acute focal motor deficit detected.) Results - Vitals Vitals: Oxygen O2 Source Room air - Rads (name of study) Left shoulder Radiology: Prelim report reviewed, EMP read contemporaneously, See rad report (Greater tuberosity, proximal humeral fracture.) PD MEDICAL DECISION MAKING - ED course Complexity details: reviewed results, re-evaluated patient, considered differential, d/w patient, d/w family ED course: The patient's presentation is significant for fracture of the greater tuberosity of the left proximal humerus. No other injuries are identified on physical examination. Treatment in the emergency department included application of an arm sling. I discussed with the patient and his expected course of injury, symptomatic treatment and outpatient follow-up, as well as potentially worrisome signs or symptoms that should prompt reevaluation in the emergency department. Departure - Departure Disposition: 01 Home, Self Care Clinical Impression: Fracture of proximal humerus Qualifiers: Encounter type: initial encounter Fracture type: closed Fracture morphology: other fracture Fracture alignment: nondisplaced Laterality: left Qualified Code(s): S42.295A - Other nondisplaced fracture of upper end of left humerus, initial encounter for closed fracture Lewy body dementia Qualifiers: Dementia behavioral disturbance: without behavioral disturbance Qualified Code(s): G31.83 - Dementia with Lewy bodies Condition: Stable Instructions: ED Fx Shoulder Follow-Up: Gagandeep Wallace MD [Provider Admit Priv/Credential] - [facility] [Provider Group] Comments: Wear the arm sling except when bathing. Apply ice pack to your left shoulder intermittently for the next several days. You can use Tylenol or ibuprofen if needed for pain. Follow-up with orthopedic surgery within 1 to 2 weeks. Call to schedule an appointment. Return to the emergency department if you develop markedly increasing pain, or otherwise worsening symptoms. Discharge Date/Time: 05/03/19 16:59
--- NOTE | 2019-05-03 16:51 | XRAY Report ---
Reason: left shoulder injury Procedure Date: 05/03/2019 Accession Number: [id number] / [id number] Procedure: XR - Shoulder 3 View LT CPT Code: FULL RESULT: EXAM: LEFT SHOULDER RADIOGRAPHY EXAM DATE: 05/03/2019 04:35 PM. CLINICAL HISTORY: Left shoulder injury. COMPARISON: None. TECHNIQUE: 3 views. FINDINGS: Bones: Greater tuberosity, proximal humeral vertical fracture. Joints: Glenohumeral osteophyte. AC joint hypertrophy. Soft tissues: The visualized hemithorax is unremarkable. No soft tissue swelling. IMPRESSION: Greater tuberosity, proximal humeral fracture RADIA
== END 2019-05-03 16:59 | disposition home or self-care (01) ==
LOC: ED 15:46
DX: S42.255A Nondisplaced fracture of greater tuberosity of left humerus, initial encounter for closed fracture (principal); W08.XXXA Fall from other furniture, initial encounter; Y93.89 Activity, other specified; Y92.009 Unspecified place in unspecified non-institutional (private) residence as the place of occurrence of the external cause; G20 Parkinson's disease; F02.80 Dementia in other diseases classified elsewhere, unspecified severity, without behavioral disturbance, psychotic disturbance, mood disturbance, and anxiety; M81.0 Age-related osteoporosis without current pathological fracture; Z91.81 History of falling
CPT/HCPCS: 99283; 99284

== ENCOUNTER 2020-10-04 19:22 | Outpatient (CLI) | payer MEDICARE | END 2020-10-04 19:23 | disposition critical access hospital (66) | LOC: EMS 19:22 | PROVIDERS: ATTEND Emergency Medicine | DX: M25.511 Pain in right shoulder (principal); M25.551 Pain in right hip | CPT/HCPCS: A0425; A0429 ==

== ENCOUNTER 2020-10-04 20:00 | Emergency (ER) | payer BC, MEDICARE ==
--- NOTE | 2020-10-04 20:09 | ED Physician Documentation ---
PD HPI Fall - Stated complaint Stated Complaint: GLF - History obtained from History obtained from: Patient, Family (), EMS - Additional information Additional information: 80-year-old gentleman with Lewy body dementia. He was at home with his and started to fall and kind of fell on her. He injured his right arm. There was also concern about a hip injury but he has been ambulatory and is not complaining of hip pain. Review of Systems Unable to obtain: Dementia PD PAST MEDICAL HISTORY - Past Medical History Cardiovascular: Atrial fibrillation Respiratory: None Neuro: Dementia, Parkinson's Endocrine/Autoimmune: None GI: None : Incontinence HEENT: None Psych: None Derm: None - Past Surgical History Past Surgical History: Yes Ortho: Hip replacement - Present Medications Home Medications: Ambulatory Orders Medication Instructions Recorded Confirmed Alendronate Sodium 2 tab PO OAW 11/03/17 10/04/20 Digoxin 1 tab PO DAILY 11/03/17 10/04/20 Carbidopa/Levodopa 1 each PO QID 03/26/19 10/04/20 [Carbidopa-Levodopa 25-100 Tab] Donepezil HCl [Aricept] 10 mg PO DAILY 03/26/19 10/04/20 Fludrocortisone [Florinef] 0.2 tab PO DAILY 03/26/19 10/04/20 Mirtazapine [Remeron] 30 mg PO QPM 10/04/20 10/04/20 - Allergies Allergies/Adverse Reactions: Allergies Allergy/AdvReac Type Severity Reaction Status Date / Time Interferons Allergy Severe Anaphylaxis Verified 10/04/20 20:16 ribavirin Allergy Unknown Verified 10/04/20 20:16 Benzodiazepines AdvReac Unknown Verified 10/04/20 20:17 Anesthesia AdvReac Unknown Uncoded 10/04/20 20:17 Anticholinergics AdvReac Unknown Uncoded 10/04/20 20:17 Antipsychotics AdvReac Unknown Uncoded 10/04/20 20:17 Opiates AdvReac Unknown Uncoded 10/04/20 20:17 Sedatives AdvReac Unknown Uncoded 10/04/20 20:17 - Social History Does the pt smoke?: No Smoking Status: Never smoker Does the pt drink ETOH?: Yes Does the pt have substance abuse?: No - Immunizations Immunizations are current?: Yes - POLST Patient has POLST: Yes PD ED PE NORMAL - Vitals Vital signs reviewed: Yes - General General: No acute distress, Other (He is alert and oriented to person and place and events but not date.) - HEENT HEENT: PERRL, EOMI - Neck Neck: Supple, no meningeal sign, No bony TTP - Cardiac Cardiac: RRR, No murmur - Respiratory Respiratory: No respiratory distress, Clear bilaterally - Abdomen Abdomen: Normal bowel sounds, Soft, Non tender - Back Back: No CVA TTP, No spinal TTP - Derm Derm: Normal color, Warm and dry - Extremities Extremities: Other (Quite tender to the right upper humerus. Cannot range the shoulder. Normal neurovascular function in the right hand. Right hip is nontender and painless internal and external rotation.) - Neuro Neuro: No motor deficit, No sensory deficit Results - Vitals Vitals: Vital Signs - 24 hr 10/04/20 20:00 Temperature 36.5 C Heart Rate 65 Respiratory 17 Rate Blood Pressure 174/106 H O2 Saturation 95 Oxygen O2 Source Room air - Rads (name of study) Right humerus x-ray Radiology: EMP read contemporaneously (Minimally displaced avulsion fracture of the greater tuberosity of the proximal right humerus) Departure - Departure Disposition: 01 Home, Self Care Clinical Impression: Right humeral fracture Qualifiers: Encounter type: initial encounter Humerus Location: greater tuberosity Fracture type: closed Fracture alignment: nondisplaced Qualified Code(s): S42.254A - Nondisplaced fracture of greater tuberosity of right humerus, initial encounter for closed fracture Condition: Good Record reviewed to determine appropriate education?: Yes Instructions: ED Fx Upper Ext Follow-Up: [facility] [Provider Group] - Within 1 week Comments: Stuart should followup in the orthopedics clinic within the week, call tomorrow for an appointment. Keep sling on til then. Tylenol per package instruction as needed for pain.
--- NOTE | 2020-10-04 20:45 | XRAY Report ---
PROCEDURE: Humerus RT INDICATIONS: arm inj fall TECHNIQUE: views of the humerus were acquired. COMPARISON: None FINDINGS: Bones: Mildly displaced fracture through the base of the greater tuberosity of the proximal humerus Soft tissues: No suspicious soft tissue calcifications. IMPRESSION: Minimally displaced avulsion fracture of the greater tuberosity. Reviewed by: Penelope Funk MD, PhD on 10/04/2020 8:43 PM PST Approved by: Penelope Funk MD, PhD on 10/04/2020 8:43 PM PST Station ID: [id number]
[2020-10-04 21:12] VITALS: BP 168/97
== END 2020-10-04 21:24 | disposition home or self-care (01) ==
LOC: ED 20:00
DX: S42.254A Nondisplaced fracture of greater tuberosity of right humerus, initial encounter for closed fracture (principal); W18.30XA Fall on same level, unspecified, initial encounter; Y92.009 Unspecified place in unspecified non-institutional (private) residence as the place of occurrence of the external cause; G31.83 Neurocognitive disorder with Lewy bodies; F02.80 Dementia in other diseases classified elsewhere, unspecified severity, without behavioral disturbance, psychotic disturbance, mood disturbance, and anxiety
CPT/HCPCS: 99281; 99283

== ENCOUNTER 2020-11-02 12:09 | Outpatient (CLI) | payer MEDICARE | END 2020-11-02 12:10 | disposition critical access hospital (66) | LOC: EMS 12:09 | PROVIDERS: ATTEND Emergency Medicine | DX: M25.552 Pain in left hip (principal) | CPT/HCPCS: A0425; A0429 ==

== ENCOUNTER 2020-11-02 12:25 | Emergency (ER) | payer MEDICARE ==
--- NOTE | 2020-11-02 12:52 | ED Physician Documentation ---
PD HPI Fall - Stated complaint Stated Complaint: GLF - Chief complaint Chief Complaint: Trauma Hd/Nk - History obtained from History obtained from: Patient, EMS - History of Present Illness Mechanism of injury: Lost balance Fall distance: Standing position Where injury occurred: Home Timing - onset: Today Injury(ies) location: Head, Left Lower Extremity Quality of pain: Pain Associated symptoms: No: LOC, AMS Symptoms improve with: Rest Worsens with: Movement, Palpation Contributing factors: No: Anticoagulated Similar symptoms before: Diagnosis (hip contusion) Recently seen: Not recently seen - Additional information Additional information: 80-year-old male with a history of Parkinson's and dementia has a caregiver at home and he is supposed to be using a walker. Today he went to reach for some candy was not using his walker and fell forward landing on his left hip. He has a and a abrasion to his head he did not get have loss of consciousness he denies any pain to his neck and he has no shortening or rotation but he does have some pain to the left hip area and pain with weightbearing the pain appears to be centered in the groin. Review of Systems Constitutional: denies: Fever Eyes: denies: Decreased vision Ears: denies: Ear pain Nose: denies: Congestion Throat: denies: Sore throat Cardiac: denies: Chest pain / pressure Respiratory: denies: Dyspnea, Cough GI: denies: Abdominal Pain, Nausea, Vomiting : denies: Dysuria, Frequency Skin: denies: Rash Musculoskeletal: reports: Extremity pain, Joint pain, Pain with weight bearing. denies: Neck pain, Back pain Neurologic: denies: Generalized weakness, Focal weakness, Numbness PD PAST MEDICAL HISTORY - Past Medical History Past Medical History: Yes Cardiovascular: Atrial fibrillation Respiratory: None Neuro: Dementia, Parkinson's Endocrine/Autoimmune: None GI: None : Incontinence HEENT: None Psych: None Derm: None - Past Surgical History Past Surgical History: Yes Ortho: Hip replacement - Present Medications Home Medications: Ambulatory Orders Medication Instructions Recorded Confirmed Alendronate Sodium 2 tab PO OAW 11/03/17 11/02/20 Digoxin 1 tab PO DAILY 11/03/17 11/02/20 Carbidopa/Levodopa 1 each PO QID 03/26/19 11/02/20 [Carbidopa-Levodopa 25-100 Tab] Fludrocortisone [Florinef] 0.2 tab PO DAILY 03/26/19 11/02/20 Mirtazapine [Remeron] 30 mg PO QPM 10/04/20 11/02/20 Magnesium Citrate 150 mg PO DAILY 11/02/20 11/02/20 Meloxicam [Mobic] 7.5 mg PO BID PRN #20 tablet 11/02/20 - Allergies Allergies/Adverse Reactions: Allergies Allergy/AdvReac Type Severity Reaction Status Date / Time Interferons Allergy Severe Anaphylaxis Verified 11/02/20 12:35 ribavirin Allergy Unknown Verified 11/02/20 12:35 Benzodiazepines AdvReac Unknown Verified 11/02/20 12:35 Anesthesia AdvReac Unknown Uncoded 11/02/20 12:35 Anticholinergics AdvReac Unknown Uncoded 11/02/20 12:35 Antipsychotics AdvReac Unknown Uncoded 11/02/20 12:35 Opiates AdvReac Unknown Uncoded 11/02/20 12:35 Sedatives AdvReac Unknown Uncoded 11/02/20 12:35 - Social History Does the pt smoke?: No Smoking Status: Never smoker Does the pt drink ETOH?: Yes Does the pt have substance abuse?: No - Immunizations Immunizations are current?: Yes - POLST Patient has POLST: Yes PD ED PE NORMAL - Vitals Vital signs reviewed: Yes (hypertension) - General General: No acute distress, Well developed/nourished, Other (alert and interactive with delay in execution of motor commands. ) - HEENT HEENT: PERRL, EOMI, Other (There is an abrasion to the scalp anteriorly without depression or crepitance there is no other tenderness to the skull.) - Neck Neck: Supple, no meningeal sign, No bony TTP - Cardiac Cardiac: RRR, No murmur - Respiratory Respiratory: No respiratory distress, Clear bilaterally - Back Back: No CVA TTP, No spinal TTP - Derm Derm: Normal color, Warm and dry, No rash - Extremities Extremities: No deformity, No edema - Neuro Neuro: Alert and oriented X 3, it telecom technician 2-12 intact, No motor deficit, No sensory deficit, Normal speech Eye Opening: Spontaneous Motor: Obeys Commands Verbal: Oriented GCS Score: 15 - Psych Psych: Normal mood, Normal affect Results - Vitals Vitals: Vital Signs - 24 hr 11/02/20 11/02/20 11/02/20 12:30 12:36 13:52 Temperature 36.2 C L 36.2 C L Heart Rate 55 L 65 71 Respiratory 16 15 20 Rate Blood Pressure 135/93 H 135/93 H 146/97 H O2 Saturation 93 93 93 11/02/20 13:56 Temperature 36.7 C Heart Rate Respiratory Rate Blood Pressure O2 Saturation Oxygen O2 Source Room air - Rads (name of study) Lhip & pelvis Radiology: Prelim report reviewed (Impression: 1. No displaced left hip fracture. If there are persistent symptoms or continued clinical concern for pathology can, then advanced imaging (CT, MRI, bone scan) should be considered for further evaluation. Fracture of the superior left pubic ramus), EMP read indepedently, See rad report PD MEDICAL DECISION MAKING - ED course Complexity details: reviewed old records, reviewed results, re-evaluated patient, considered differential, d/w patient ED course: 80-year-old male who has had a fall in his home from ground-level has fallen onto his left hip he is able to stand at the side of the bed and shuffle he has pain associated with this and has a fracture of the superior pubic ramus on the left side. Departure - Departure Disposition: 01 Home, Self Care Clinical Impression: Fracture of superior pubic ramus Qualifiers: Encounter type: initial encounter Fracture type: closed Laterality: left Qualified Code(s): S32.512A - Fracture of superior rim of left pubis, initial encounter for closed fracture Condition: Stable Instructions: ED Fx Pelvis Follow-Up: Gagandeep Wallace MD [Primary Care Provider] - Prescriptions: Meloxicam [Mobic] 7.5 mg PO BID PRN #20 tablet PRN Reason: Pain Comments: For the next several weeks it will be very difficult to get in and out of bed and the recommendation is you have help for this every time you get out of bed and do not try to get out of bed by herself. For pain control the recommendation is to take the Mobic twice per day on a regular basis and to use Tylenol 650 mg every 6 hours. The recommendation is to take these medicines regularly. Within the next week adjustments to this dosage regimen should be made by her primary care doctor.
--- NOTE | 2020-11-02 13:36 | XRAY Report ---
PROCEDURE: Hip w/Pelvis 2-3V LT INDICATIONS: fall groin pain to the left TECHNIQUE: AP pelvis with lateral view(s) of the left hip(s). COMPARISON: None. FINDINGS: Bones: Postsurgical changes compatible with right hip arthroplasty noted. Orthopedic hardware is inta ct. No lucencies at the bone-hardware interface. Mildly displaced fracture involving the left superio r pubic ramus. No left hip fractures or dislocations. [id number] left hip osteoarthritis. Pelvi c ring appears intact. No suspicious bony lesions. Soft tissues: The visualized bowel gas pattern is normal. No suspicious soft tissue calcifications. IMPRESSION: 1. No displaced left hip fracture. If there are persistent symptoms or continued clinical concern for pathology, then advanced imaging (CT, MR, bone scan) should be considered for further evaluation. 2. Fracture of the superior left pubic ramus. Reviewed by: Penelope Funk MD, PhD on 11/02/2020 1:34 PM PDT Approved by: Penelope Funk MD, PhD on 11/02/2020 1:34 PM PDT Station ID: [id number]
[2020-11-02] MEDS ORDERED: ACETAMINOPHEN 325 MG TABLET PO STA (14:38)
[2020-11-02] MEDS ORDERED: KETOROLAC 60 MG/2 ML VIAL IM STA (14:44)
[2020-11-02 16:59] VITALS: BP 130/90
== END 2020-11-02 16:57 | disposition home or self-care (01) ==
LOC: EDUNIT# → ED 12:25
DX: S00.01XA Abrasion of scalp, initial encounter (principal); S32.512A Fracture of superior rim of left pubis, initial encounter for closed fracture; W18.39XA Other fall on same level, initial encounter; Y93.89 Activity, other specified; Y92.009 Unspecified place in unspecified non-institutional (private) residence as the place of occurrence of the external cause; G20 Parkinson's disease; F02.80 Dementia in other diseases classified elsewhere, unspecified severity, without behavioral disturbance, psychotic disturbance, mood disturbance, and anxiety
CPT/HCPCS: 73502; 96372; 99284; A9270

== ENCOUNTER 2020-11-02 16:59 | Outpatient (CLI) | payer MEDICARE | END 2020-11-02 17:00 | disposition home or self-care (01) | LOC: EMS 16:59 | PROVIDERS: ATTEND Emergency Medicine | DX: S32.512D Fracture of superior rim of left pubis, subsequent encounter for fracture with routine healing (principal); W18.30XD Fall on same level, unspecified, subsequent encounter; Z74.01 Bed confinement status | CPT/HCPCS: A0425; A0428 ==

== ENCOUNTER 2020-11-03 01:49 | Outpatient (CLI) | payer MEDICARE | END 2020-11-03 01:50 | disposition critical access hospital (66) | LOC: EMS 01:49 | PROVIDERS: ATTEND Emergency Medicine | DX: R50.9 Fever, unspecified (principal); R53.83 Other fatigue; R06.00 Dyspnea, unspecified | CPT/HCPCS: A0425; A0429 ==

== ENCOUNTER 2020-11-03 02:03 | Inpatient (IN) | payer MEDICARE ==
--- NOTE | 2020-11-03 02:16 | ED Physician Documentation ---
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 He was evaluated for a fall and left hip pain; xrays revealed left superior ramus fracture but no evidence of hip fracture. He was discharged back to [facility] but was noted to be hypoxic once back at that facility. Hypoxia worsened to 75%-80% room air and thus 911 called. EMS found patient to have low80s pulse ox room air and lethargic. Staff at [facility] also reported Tmax 99.5. EMS applied 3 l/min NC oxygen and his pulse ox gradually improved to 93% and they noted a correlation in improvement in level of consciousness and interactivity. There is no known pulmonary disease, does not use oxygen at home. Patient's contribution to HPI/ROS is limited due to dementia. Review of Systems Unable to obtain: Other (limited due to dementia (will provide answers to questions, but questionable accuracy)) Constitutional: denies: Fever (Tmax 99.5) Cardiac: denies: Chest pain / pressure Respiratory: denies: Dyspnea (denies dyspnea but he is tachypneic as he answers; not clear if he understands question), Cough GI: denies: Abdominal Pain Neurologic: reports: Altered mental status. denies: Generalized weakness, Focal weakness, Numbness PD PAST MEDICAL HISTORY - Past Medical History Past Medical History: Yes Cardiovascular: Atrial fibrillation Neuro: Dementia, Parkinson's Other Past Medical History: traumatic hemo/pneumothorax with multiple right rib fractures August 2017 - Past Surgical History Ortho: Hip replacement (right) - Present Medications Home Medications: Ambulatory Orders Medication Instructions Recorded Confirmed Alendronate Sodium 70 mg PO OAW 11/03/17 11/02/20 Digoxin 125 mcg PO DAILY 11/03/17 11/02/20 Carbidopa/Levodopa 1 each PO QID 03/26/19 11/02/20 [Carbidopa-Levodopa 25-100 Tab] Fludrocortisone [Florinef] 0.2 tab PO DAILY 03/26/19 11/02/20 Mirtazapine [Remeron] 30 mg PO QPM 10/04/20 11/02/20 Magnesium Citrate 150 mg PO DAILY 11/02/20 11/02/20 Meloxicam [Mobic] 7.5 mg PO BID PRN #20 tablet 11/02/20 Donepezil HCl [Aricept] 10 mg PO 11/03/20 Melatonin/Pyridoxine [Melatonin 5 1 each PO PRN PRN 11/03/20 11/03/20 mg Tablet] Mirabegron [Myrbetriq] 25 mg PO DAILY 11/03/20 11/03/20 Polyethylene Glycol 3350 [Glycolax] 17 g PO DAILY 11/03/20 11/03/20 dilTIAZem HCL [Diltiazem 24Hr ER 120 mg PO DAILY 11/03/20 11/03/20 (Xr)] - Allergies Allergies/Adverse Reactions: Allergies Allergy/AdvReac Type Severity Reaction Status Date / Time Interferons Allergy Severe Anaphylaxis Verified 11/02/20 12:35 ribavirin Allergy Unknown Verified 11/02/20 12:35 Benzodiazepines AdvReac Unknown Verified 11/02/20 12:35 Anesthesia AdvReac Unknown Uncoded 11/02/20 12:35 Anticholinergics AdvReac Unknown Uncoded 11/02/20 12:35 Antipsychotics AdvReac Unknown Uncoded 11/02/20 12:35 Opiates AdvReac Unknown Uncoded 11/02/20 12:35 Sedatives AdvReac Unknown Uncoded 11/02/20 12:35 PD ED PE NORMAL - Vitals Vital signs reviewed: Yes - General General: No acute distress, Well developed/nourished, Other (awake, alert, oriented x 2) - HEENT HEENT: PERRL, EOMI - Neck Neck: Supple, no meningeal sign - Cardiac Cardiac: No murmur - Respiratory Respiratory: No respiratory distress (tachypneic), Other (bilateral scattered rhonchi) - Abdomen Abdomen: Soft, Non tender, Non distended - Back Back: No spinal TTP - Derm Derm: Warm and dry - Extremities Extremities: Other (old bruising/echymosis right upper arm) - Neuro Eye Opening: Spontaneous Motor: Obeys Commands Verbal: Confused GCS Score: 14 PD ED PE EXPANDED - Cardiac Cardiac: Irregularly irregular Results - Vitals Vitals: Vital Signs - 24 hr 11/03/20 11/03/20 11/03/20 02:11 02:18 03:30 Temperature 37.1 C 36.9 C Heart Rate 74 67 Respiratory 13 11 L 20 Rate Blood Pressure 106/77 126/88 H O2 Saturation 74 L 97 90 L 11/03/20 11/03/20 11/03/20 04:10 06:00 06:30 Temperature 36.6 C Heart Rate 75 76 73 Respiratory 23 23 19 Rate Blood Pressure 108/76 150/58 H 131/94 H O2 Saturation 82 L 93 92 11/03/20 11/03/20 11/03/20 06:55 07:05 07:24 Temperature 36.8 C Heart Rate 75 Respiratory 22 20 Rate Blood Pressure 143/88 H O2 Saturation 78 L 96 94 11/03/20 07:48 Temperature Heart Rate 78 Respiratory 20 Rate Blood Pressure 140/98 H O2 Saturation 97 Oxygen O2 Source Nasal cannula Oxygen Flow Rate 4 - Labs Labs: Laboratory Tests 11/03/20 11/03/20 11/03/20 02:42 02:42 02:42 WBC 6.9 RBC 3.49 L Hgb 11.3 L Hct 34.6 L MCV 99.1 H MCH 32.4 H MCHC 32.7 RDW 13.6 Plt Count 174 MPV 9.0 Neut # (Auto) 5.2 Lymph # (Auto) 0.8 L Dickson # (Auto) 0.6 Eos # (Auto) 0.4 Baso # (Auto) 0.0 Absolute Nucleated RBC 0.00 Nucleated RBC % 0.0 Sodium 143 Potassium 3.6 Chloride 108 Carbon Dioxide 25 Anion Gap 10.0 BUN 39 H Creatinine 1.2 Estimated GFR (MDRD) 58 L Glucose 113 H Lactic Acid 1.0 Calcium 8.6 Total Bilirubin 1.7 H AST 23 ALT < 10 L Alkaline Phosphatase 83 B-Natriuretic Peptide Total Protein 7.2 Albumin 3.7 Globulin 3.5 Albumin/Globulin Ratio 1.1 Lipase 20 L Urine Color Urine Clarity Urine pH Ur Specific [place] Urine Protein Urine Glucose (UA) Urine Ketones Urine Occult Blood Urine Nitrite Urine Bilirubin Urine Urobilinogen Ur Leukocyte Esterase Urine RBC Urine WBC Ur Squamous Epith Cells Urine Bacteria Urine Mucus Ur Microscopic Review Urine Culture Comments Nasal Adenovirus (PCR) Nasal B. parapertussis DNA (PCR) Nasal Coronavir 229E PCR Nasal Coronavir HKU1 PCR Nasal Coronavir NL63 PCR Nasal Coronavir OC43 PCR Nasal Enterovir/Rhinovir PCR Nasal Influenza B PCR Nasal Influenza A PCR Nasal Parainfluen 1 PCR Nasal Parainfluen 2 PCR Nasal Parainfluen 3 PCR Nasal Parainfluen 4 PCR Nasal RSV (PCR) Nasal B.pertussis DNA PCR Nasal C.pneumoniae (PCR) Kenneth Human Metapneumo PCR Nasal M.pneumoniae (PCR) Nasal SARS-CoV-2 (PCR) Last Dose Date Last Dose Time Digoxin 11/03/20 11/03/20 11/03/20 02:42 02:42 05:56 WBC RBC Hgb Hct MCV MCH MCHC RDW Plt Count MPV Neut # (Auto) Lymph # (Auto) Dickson # (Auto) Eos # (Auto) Baso # (Auto) Absolute Nucleated RBC Nucleated RBC % Sodium Potassium Chloride Carbon Dioxide Anion Gap BUN Creatinine Estimated GFR (MDRD) Glucose Lactic Acid Calcium Total Bilirubin AST ALT Alkaline Phosphatase B-Natriuretic Peptide 832 H Total Protein Albumin Globulin Albumin/Globulin Ratio Lipase Urine Color Urine Clarity Urine pH Ur Specific [place] Urine Protein Urine Glucose (UA) Urine Ketones Urine Occult Blood Urine Nitrite Urine Bilirubin Urine Urobilinogen Ur Leukocyte Esterase Urine RBC Urine WBC Ur Squamous Epith Cells Urine Bacteria Urine Mucus Ur Microscopic Review Urine Culture Comments Nasal Adenovirus (PCR) NOT DETECTED Nasal B. parapertussis DNA (PCR) NOT DETECTED Nasal Coronavir 229E PCR NOT DETECTED Nasal Coronavir HKU1 PCR NOT DETECTED Nasal Coronavir NL63 PCR NOT DETECTED Nasal Coronavir OC43 PCR NOT DETECTED Nasal Enterovir/Rhinovir PCR NOT DETECTED Nasal Influenza B PCR NOT DETECTED Nasal Influenza A PCR NOT DETECTED Nasal Parainfluen 1 PCR NOT DETECTED Nasal Parainfluen 2 PCR NOT DETECTED Nasal Parainfluen 3 PCR NOT DETECTED Nasal Parainfluen 4 PCR NOT DETECTED Nasal RSV (PCR) NOT DETECTED Nasal B.pertussis DNA PCR NOT DETECTED Nasal C.pneumoniae (PCR) NOT DETECTED Kenneth Human Metapneumo PCR NOT DETECTED Nasal M.pneumoniae (PCR) NOT DETECTED Nasal SARS-CoV-2 (PCR) NOT DETECTED Last Dose Date NA Last Dose Time NA Digoxin 0.5 11/03/20 06:55 WBC RBC Hgb Hct MCV MCH MCHC RDW Plt Count MPV Neut # (Auto) Lymph # (Auto) Dickson # (Auto) Eos # (Auto) Baso # (Auto) Absolute Nucleated RBC Nucleated RBC % Sodium Potassium Chloride Carbon Dioxide Anion Gap BUN Creatinine Estimated GFR (MDRD) Glucose Lactic Acid Calcium Total Bilirubin AST ALT Alkaline Phosphatase B-Natriuretic Peptide Total Protein Albumin Globulin Albumin/Globulin Ratio Lipase Urine Color DARK YELLOW Urine Clarity CLEAR Urine pH 5.5 Ur Specific [place] 1.015 Urine Protein 30 H Urine Glucose (UA) NEGATIVE Urine Ketones NEGATIVE Urine Occult Blood NEGATIVE Urine Nitrite POSITIVE H Urine Bilirubin NEGATIVE Urine Urobilinogen 1 (NORMAL) Ur Leukocyte Esterase NEGATIVE Urine RBC 0-5 Urine WBC 0-3 Ur Squamous Epith Cells FEW Squamous Urine Bacteria Few Urine Mucus Few Strands Ur Microscopic Review INDICATED Urine Culture Comments INDICATED Nasal Adenovirus (PCR) Nasal B. parapertussis DNA (PCR) Nasal Coronavir 229E PCR Nasal Coronavir HKU1 PCR Nasal Coronavir NL63 PCR Nasal Coronavir OC43 PCR Nasal Enterovir/Rhinovir PCR Nasal Influenza B PCR Nasal Influenza A PCR Nasal Parainfluen 1 PCR Nasal Parainfluen 2 PCR Nasal Parainfluen 3 PCR Nasal Parainfluen 4 PCR Nasal RSV (PCR) Nasal B.pertussis DNA PCR Nasal C.pneumoniae (PCR) Kenneth Human Metapneumo PCR Nasal M.pneumoniae (PCR) Nasal SARS-CoV-2 (PCR) Last Dose Date Last Dose Time Digoxin - Rads (name of study) CT chest with IV contrast Radiology: Prelim report reviewed, See rad report CT head Radiology: Prelim report reviewed, See rad report PD MEDICAL DECISION MAKING - ED course Complexity details: reviewed old records, reviewed results, re-evaluated patient, considered differential, d/w patient, d/w family ( was updated by ED RN over phone) ED course: patient is hypoxic during ED stay whenever oxygen is removed: on arrival the oxygen is briefly removed to facilitate transfer from ambulance stretcher to ED stretcher, and his oxygen level rapidly decreases to upper 70s with pleth that correlates with his cardiac rhythm on monitor. Pulse ox also rapidly improves to low/mid 90s with 3-4 l/min NC oxygen. He is awake and conversant although forgetful, has difficulty with some recall. His CT reveals bilateral interstitial opacities as well as small right pleural effusion and/or pleural thickening with areas of loculation. No pneumothorax, PE, or acute rib fracture(s). The effusion is small and likely not the primary cause of the hypoxia (could be contributing); the interstitial opacities are diffuse and more likely explanation for the hypoxia. Plan is to admit, administer IV antibiotics to cover possible infectious etiology such as atypical pneumonia, and oxygen to maintain saturations in 90s. Late in ED stay, patient suddenly became agitated, removed oxygen and was trying to get off stretcher and remove IV and monitor leads. ED staff including myself tried to calm him, tried to reorient him to the situation and explain that he needs to keep the oxygen in place. He was confused and angry, yelling at staff and myself and was not amenable to these attempts to calm him. He was diaphoretic and tachypneic. His list of allergies includes benzodiazepines, anesthetics, antipsychotics, and even "sedatives"; it indicates a recommendation to avoid due to LBD. However, he is too agitated to forgo some form of sedation, and physical restraint would likely worsen his agitation and possibly cause more injury. Thus he is given 1mg IV lorazepam with good effect; he quickly calmed and allowed nasal canula oxygen to be replaced. Before the oxygen was reapplied, pulse ox was reapplied and measured upper 70s with correlating pleth. With reapplication of NC oxygen 4 liters, his pulse ox rapidly improved to mid 90s and his diaphoresis resolved. Departure - Departure Disposition: 66 [facility] DC/Xfer Clinical Impression: Hypoxia Lewy body dementia Qualifiers: Dementia behavioral disturbance: with behavioral disturbance Qualified Code(s): G31.83 - Dementia with Lewy bodies Fracture of superior pubic ramus Qualifiers: Encounter type: subsequent encounter Fracture type: closed Laterality: left Fra cture healing: with nonunion Qualified Code(s): S32.512K - Fracture of superior rim of left pubis, subsequent encounter for fracture with nonunion Pneumonia Qualifiers: Pneumonia type: due to unspecified organism Laterality: bilateral Lung location: unspecified part of lung Qualified Code(s): J18.9 - Pneumonia, unspecified organism Condition: Stable
[2020-11-03 02:46] LABS: BASOPHILS % (AUTO) 0.3 %; EOSINOPHILS # (AUTO) 0.4 10^3/uL (0.0-0.7); EOSINOPHILS % (AUTO) 5.5 %; HCT - HEMATOCRIT 34.6 % (42.0-52.0); HGB - HEMOGLOBIN 11.3 g/dL (14.0-18.0); LYMPHOCYTES # (AUTO) 0.8 10^3/uL (1.5-3.5); MEAN CORPUSCULAR HEMOGLOBIN 32.4 pg (27.0-31.0); MEAN CORPUSCULAR HGB CONC 32.7 g/dL (32.0-36.0); MEAN CORPUSCULAR VOLUME 99.1 fL (80.0-94.0); MONOCYTES # (AUTO) 0.6 10^3/uL (0.0-1.0); MONOCYTES % (AUTO) 8.1 %; NEUTROPHILS # (AUTO) 5.2 10^3/uL (1.5-6.6); NEUTROPHILS % (AUTO) 74.8 %; PLT - PLATELET COUNT 174 10^3/uL (130-450); RED BLOOD COUNT 3.49 10^6/uL (4.70-6.10); RED CELL DISTRIBUTION WIDTH 13.6 % (12.0-15.0); WHITE BLOOD COUNT 6.9 x10^3/uL (4.8-10.8)
[2020-11-03 03:00] LABS: ALBUMIN 3.7 g/dL (3.2-5.5); ALBUMIN/GLOBULIN RATIO 1.1 (1.0-2.2); ALKALINE PHOSPHATASE 83 IU/L (42-121); ALT ALANINE AMINOTRANSFERASE < 10 IU/L (10-60); AST ASPARTATE AMINOTRANSFERASE 23 IU/L (10-42); BILIRUBIN,TOTAL 1.7 mg/dL (0.2-1.0); BUN - BLOOD UREA NITROGEN 39 mg/dL (6-20); CALCIUM 8.6 mg/dL (8.5-10.3); CARBON DIOXIDE - CO2 25 mmol/L (21-32); CHLORIDE 108 mmol/L (101-111); CREATININE 1.2 mg/dL (0.6-1.2); GFR - MDRD 58 (>89); GLUCOSE 113 mg/dL (70-100); LIPASE 20 U/L (22-51); POTASSIUM 3.6 mmol/L (3.5-5.0); SODIUM 143 mmol/L (135-145); TOTAL PROTEIN 7.2 g/dL (6.7-8.2)
[2020-11-03] MEDS ORDERED: IOVERSOL 320 100 ML VIAL IVP ONE ×2 (04:01→05:07)
[2020-11-03 06:51] LABS: B. PARAPERTUSSIS- RESP PCR PAN NOT DETECTED; B. PERTUSSIS- RESP PCR PANEL NOT DETECTED; C. PNEUMONIAE- RESP PCR PANEL NOT DETECTED; CORONAVIRUS 229E-RESP PCR NOT DETECTED; CORONAVIRUS HKU1-RESP PCR NOT DETECTED; CORONAVIRUS NL63-RESP PCR NOT DETECTED; CORONAVIRUS OC43-RESP PCR NOT DETECTED; HUMAN METAPNEUMOVIRUS NOT DETECTED; INFLUENZA A- RESP PCR PANEL NOT DETECTED; INFLUENZA B - RESP PCR PANEL NOT DETECTED; M. PNEUMONIAE- RESP PCR PANEL NOT DETECTED; PARAINFLUENZA VIRUS 1 NOT DETECTED; PARAINFLUENZA VIRUS 2 NOT DETECTED; PARAINFLUENZA VIRUS 3 NOT DETECTED; PARAINFLUENZA VIRUS 4 NOT DETECTED; RHINOVIRUS/ENTEROVIRUS NOT DETECTED; RSV- RESP PCR PANEL NOT DETECTED; SARS-CoV-2 -RESP PCR PANEL NOT DETECTED
[2020-11-03] MEDS ORDERED: LORazepam 2 MG/ML VIAL IVP STA (07:03)
[2020-11-03] MEDS ORDERED: LORazepam 2 MG/ML VIAL ONE ×2 (07:13→07:20)
--- NOTE | 2020-11-03 07:25 | CT Report ---
PROCEDURE: HEAD WO INDICATIONS: fall, AMS TECHNIQUE: Noncontrast 4.5 mm thick angled axial sections acquired from the foramen magnum to the vertex. For r adiation dose reduction, the following was used: automated exposure control, adjustment of mA and/or kV according to patient size. COMPARISON: 11/03/2017 FINDINGS: Image quality: Excellent. CSF spaces: Basal cisterns are patent. No extra-axial fluid collections. The ventricles are symmet sharona in size and shape. Brain: No intracranial bleeds or masses. There is cerebral volume loss for age, with resultant vent ricular and sulcal prominence. There are periventricular and deep white matter chronic small vessel ischemic changes. There is intracranial internal carotid artery atherosclerosis. Skull and face: Chronic left parietal bone depressed fracture redemonstrated. The visualized facial b ones appear intact, without suspicious lesions. Sinuses: Visualized sinuses and mastoids are clear. IMPRESSION: No acute intracranial disease process. Reviewed by: Penelope Funk MD, PhD on 11/03/2020 7:24 AM PDT Approved by: Penelope Funk MD, PhD on 11/03/2020 7:24 AM PDT Station ID: [id number]
[2020-11-03 07:31] LABS: GLUCOSE, URINE (UA) NEGATIVE (NEGATIVE); KETONES,URINE (UA) NEGATIVE (NEGATIVE); LEUKOCYTE ESTERASE, URINE NEGATIVE (NEGATIVE); NITRITE,URINE POSITIVE (NEGATIVE); OCCULT BLOOD,URINE NEGATIVE (NEGATIVE); PH,URINE 5.5 PH (5.0-7.5); PROTEIN,URINE 30 mg/dL (NEGATIVE); UROBILINOGEN,URINE 1 (NORMAL) E.U./dL (NORMAL)
[2020-11-03 07:34] LABS: CLARITY,URINE CLEAR (CLEAR)
[2020-11-03 07:37] LABS: BILIRUBIN,URINE NEGATIVE (NEGATIVE); ICTOTEST,URINE NEGATIVE
[2020-11-03 07:44] LABS: BACTERIA,URINE Few /HPF (None Seen); MUCUS,URINE Few Strands; RBC,URINE 0-5 /HPF (0-5); SQUAMOUS EPITHELIAL CELL,UR FEW Squamous (<= Few); WBC,URINE 0-3 /HPF (0-3)
[2020-11-03] MEDS ORDERED: cefTRIAXone 1 GM VIAL IVP STA (07:56)
[2020-11-03] MEDS ORDERED: AZITHROMYCIN 250 MG TABLET PO STA (07:56)
[2020-11-03] MEDS ORDERED: AZITHROMYCIN INJ 500 MG in SODIUM CHLORIDE 0.9% 250 ML IV STA (08:03)
[2020-11-03 08:14] LABS: DIGOXIN 0.5 ng/mL
[2020-11-03] MEDS ORDERED: ONDANSETRON 4 MG/2 ML VIAL IVP PRN (08:18)
[2020-11-03] MEDS: DEXTROSE 5%-0.9% NACL 1,000 ML IV SCH ×2 (10:14→20:06)
--- NOTE | 2020-11-03 10:33 | CT Report ---
PROCEDURE: ANGIO CHEST W/WO INDICATIONS: hypoxia, fall earlier today CONTRAST: IV CONTRAST: Optiray 320 ml: 80 PO CONTRAST: *NO PO CONTRAST TECHNIQUE: After the administration of intravenous contrast, 2 mm thick sections acquired from the pulmonary api costa to the posterior costophrenic angles. 3-dimensional maximum intensity projection (MIP) coronal a nd sagittal reformats were then acquired through the thorax. For radiation dose reduction, the follow ing was used: automated exposure control, adjustment of mA and/or kV according to patient size. COMPARISON: FINDINGS: Image quality: Excellent. Pulmonary arteries: Pulmonary arteries are normal in size, and demonstrate no intraluminal filling d efects to suggest central pulmonary embolism. Lungs and pleura: Minimal left and mild right pleural effusions are present. Increased pulmonary vasc ularity is present. Patchy areas of pleural thickening are present in the right hemithorax. Mediastinum: Heart size is enlarged, without pericardial effusion. No mediastinal or hilar adenopat hy. Thoracic aorta is normal in caliber and enhancement. Esophagus is normal in caliber, with mild hiatal hernia. Bones and chest wall: No suspicious bony lesions. Old right rib fractures are noted. Old thoracic and lumbar compression deformities are noted. The thyroid is normal. No axillary or supraclavicula r adenopathy. Abdomen: Visualized upper abdominal solid organs appear normal in the early arterial phase of enhanc ement. IMPRESSION: 1. No pulmonary embolism. 2. Bilateral effusions. 3. Pleural thickening is present, complex with loculation. 4. Bilateral pulmonary opacities are present, suggestive of pneumonia, ARDS and/or edema. The above findings are concordant with preliminary report. Reviewed by: Marcia Paulino MD on 11/03/2020 10:32 AM PDT Approved by: Marcia Paulino MD on 11/03/2020 10:32 AM PDT Station ID: [id number]
--- NOTE | 2020-11-03 11:03 | PHARMACY PROGRESS NOTE ---
- Best Possible Medication History Admit Date and Time: 11/03/20 0807 Processed by: Pharmacy Medication History completed: Yes Secondary Source(s): Facility MAR as ONLY source As the person ultimately responsible for medication therapy, providers are able to order a medication from an existing home medication list in [facility] via the "Reconcile Routine" prior to Confirmation of that medication by support coordinator. Such practice is discouraged except when the physician, in their clinical judgment, deems that a medical need exists for a medication without regard to previous use.
[2020-11-03] MEDS: SODIUM CHLORIDE FLUSH 0.9% 10 ML SYRINGE IVP SCH ×2 (11:24→18:30)
[2020-11-03] MEDS: FLUDROCORTISONE 0.1 MG TABLET PO SCH (11:25)
--- NOTE | 2020-11-03 13:33 | HISTORY & PHYSICAL EXAMINATION ---
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 There is a history of prior falls, and he has a history of atrial fibrillation but is not on anticoagulants because of the falls. There is also a history of orthostatic hypotension for which he is on Florinef. The patient was brought to the emergency room yesterday after he had a fall at the [facility], with x-rays done showing fracture of the superior pubic ramus, which required no surgery or specific treatment, and he was discharged back to the assisted living facility. Later that day, he became hypoxic and dyspneic with oxygen saturations in the 70-80% range and was started on supplemental oxygen. He still continued to be dyspneic and EMS was called, and he required supplemental oxygen for desaturating to 75% on room air and being altered, according to the record. He came into the emergency room, more awake and not as drowsy when the oxygen saturation improved. Imaging of the chest shows bilateral infiltrates, and a head CT was also done that showed no acute changes. He was initially communicative with the ER doctor and able to talk about his and where he lives, but later became agitated and sweaty and pulled off his monitoring leads and his supplemental oxygen. He received 1 mg of IV Ativan in the ER, which helped with the agitation, and he was then able to have the supplemental oxygen placed back on by Ventimask, then de-escalated to oxygen by nasal cannula. Since receiving iv Ativan, he has remained sedated and asleep. The emergency room staff called the to update her that he would be admitted. PAST MEDICAL HISTORY: Lewy body dementia; chronic atrial fibrillation, not on anticoagulation because of recurrent falls; superior pubic ramus fracture yesterday; orthostatic hypotension on flurinef. ALLERGIES: INTERFERONS CAUSED AN ANAPHYLACTIC REACTION. THERE ARE UNKNOWN REACTIONS LISTED TO BENZODIAZEPINES, ANESTHESIA, ANTICHOLINERGICS, ANTIPSYCHOTICS, OPIATES, AND SEDATIVES. 1. Tylenol p.r.n. 2. Fosamax 70 mg orally once a month. 3. Carbidopa/levodopa 25/100 mg p.o. q.i.d. 4. Digoxin 125 mcg p.o. daily. 5. Magnesium citrate 150 mg daily. 6. Melatonin 1 tablet p.r.n., unknown frequency. 7. Myrbetriq 25 mg p.o. daily. 8. Remeron 30 mg every night. 9. Naprosyn 220 mg b.i.d. p.r.n. 10. Polyethylene glycol daily. 11. Diltiazem CD 120 mg daily. 12. Aricept 10 mg daily. 13. Florinef 0.2 mg daily. SOCIAL HISTORY: He is a retired actor from [employer], he lives in assisted living, the lives separately and gave most of the history to the emergency room doctor. His smoking history and alcohol use history are not known. FAMILY HISTORY: Negative according to the EMR. PAST SURGICAL HISTORY: He has had pneumothorax and multiple rib fractures on the right side in 08/2017 after a fall. REVIEW OF SYSTEMS: A comprehensive review of systems is done by chart review and information obtained from the ER doctor since the patient is currently asleep after IV sedation, and the pertinent positives are listed, the rest are negative. PHYSICAL EXAM GENERAL: Elderly white male. He is currently sedated. He grimaces to sternal rub. He is diaphoretic. VITAL SIGNS: Blood pressure 140/98, heart rate 78 in atrial fibrillation, afebrile, room air saturation 74% and increased to 82% on 2 liters nasal cannula, then 95% on 4 liters nasal cannula oxygen. 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 Oral mucosa is moist. NECK: No JVD in a supine position. CHEST: Has scattered bilateral rhonchi. There are no wheezes or rales. HEART: Heart sounds are distant, irregular. No murmurs are heard. ABDOMEN: Soft, nontender. Normal bowel sounds. EXTREMITIES: Trace pretibial edema. No clubbing or cyanosis. NEUROLOGIC: Currently sedated after IV Ativan. LABORATORY DATA: Sodium 143, potassium 3.6, BUN 39, creatinine 1.2. Lactic acid 1.0. BNP 832. No troponins are available. Normal liver tests and normal lipase. White blood count 6.9, hemoglobin 11.3, platelet count normal at 174. His BioFire showed negative everything including COVID. His serum digoxin level was therapeutic at 0.5. His urinalysis showed high protein, positive nitrites, few WBCs and RBCs, but squamous cells were present. IMAGING Chest and thorax CT: No pulmonary embolism, bilateral pleural effusions, bilateral pulmonary opacities suggestive of pneumonia or pulmonary edema. Head CT showed no acute intracranial process, but there was atherosclerosis of the vasculature. EKG: I ordered an EKG and it showed: Atrial fibrillation, rate 65-113 (average 85), vertical QRS axis, possible RVH, nonspecific T wave flattening/biphasic changes in diffuse leads, consider Dig effect. Since last EKG done 11/03/2017, the T wave abnormalities are new, other findings are similar IMPRESSION/DIAGNOSES: 1. Acute respiratory failure with hypoxia. 2. Community-acquired pneumonia. However, this is atypical in that it is bilateral. 3. Prerenal azotemia, despite no sign of dehydration clinically. 4. Lewy body dementia. 5. Agitation. 6. Orthostatic hypotension, on Florinef. 7. Elevated BNP. PLAN: Admit the patient to inpatient status and begin treatment for a pneumonia using ceftriaxone and Zithromax empirically, using IV form since he is too sedated to take p.o. medications. Continue with gentle IV hydration. Follow his BMP and BNP daily. Give supplemental oxygen, wean down as tolerated, keeping sats > 90%. Continue with his Florinef and his dementia medications when he is able to swallow. Obtain an Echo and check troponin values because of the elevated BNP and the findings on x-ray that may indicate pulmonary edema. CODE STATUS: FULL CODE. DVT PROPHYLAXIS: Compression stockings. ATTESTATION: Patient is expected to be discharged or transferred to another facility within 96 hours: Yes. cc: Gagandeep Wallace MD TD: 11/03/2020 13:13 ute MOYA
[2020-11-03] MEDS: ACETAMINOPHEN 325 MG TABLET PO PRN (18:29)
[2020-11-03] MEDS: CARBIDOPA/LEVODOPA 25 MG/100 MG TABLET PO SCH ×2 (18:30→22:37)
[2020-11-03] MEDS ORDERED: MELATONIN PO PRN (18:40)
[2020-11-03] MEDS ORDERED: PYRIDOXINE PO PRN (18:40)
[2020-11-03] MEDS: MIRTAZAPINE 15 MG TABLET PO SCH (22:37)
[2020-11-03] MEDS: FAMOTIDINE 20 MG TABLET PO SCH (22:37)
[2020-11-04] MEDS: ACETAMINOPHEN 325 MG TABLET PO PRN ×3 (00:50→20:52)
[2020-11-04] MEDS: SODIUM CHLORIDE FLUSH 0.9% 10 ML SYRINGE IVP SCH ×3 (00:52→16:25)
[2020-11-04 05:03] LABS: BASOPHILS % (AUTO) 0.3 %; EOSINOPHILS # (AUTO) 0.7 10^3/uL (0.0-0.7); EOSINOPHILS % (AUTO) 9.4 %; HCT - HEMATOCRIT 31.5 % (42.0-52.0); HGB - HEMOGLOBIN 10.2 g/dL (14.0-18.0); LYMPHOCYTES # (AUTO) 0.7 10^3/uL (1.5-3.5); MEAN CORPUSCULAR HGB CONC 32.4 g/dL (32.0-36.0); MEAN CORPUSCULAR VOLUME 101.9 fL (80.0-94.0); MEAN PLATELET VOLUME 9.7 fL (7.4-11.4); MONOCYTES # (AUTO) 0.7 10^3/uL (0.0-1.0); MONOCYTES % (AUTO) 9.3 %; NEUTROPHILS # (AUTO) 4.9 10^3/uL (1.5-6.6); NEUTROPHILS % (AUTO) 70.6 %; PLT - PLATELET COUNT 145 10^3/uL (130-450); RED BLOOD COUNT 3.09 10^6/uL (4.70-6.10); RED CELL DISTRIBUTION WIDTH 13.8 % (12.0-15.0)
[2020-11-04 05:14] LABS: POTASSIUM 3.3 mmol/L (3.5-5.0)
[2020-11-04] MEDS: DEXTROSE 5%-0.9% NACL 1,000 ML IV SCH ×3 (05:28→23:50)
[2020-11-04] MEDS: MAGNESIUM OXIDE 400 MG TABLET PO SCH (07:44)
[2020-11-04] MEDS: DONEPEZIL 5 MG TABLET PO SCH (08:51)
[2020-11-04] MEDS: diltiaZEM CD 120 MG CAPSULE PO SCH (08:51)
[2020-11-04] MEDS: FLUDROCORTISONE 0.1 MG TABLET PO SCH (08:51)
[2020-11-04] MEDS: DIGOXIN 125 MCG TABLET PO SCH (08:51)
[2020-11-04] MEDS: CARBIDOPA/LEVODOPA 25 MG/100 MG TABLET PO SCH ×4 (08:51→20:52)
[2020-11-04] MEDS: FAMOTIDINE 20 MG TABLET PO SCH ×2 (08:52→20:52)
[2020-11-04] MEDS: polyethylene glycoL 3350 17 GM PACKET PO SCH (08:52)
[2020-11-04] MEDS ORDERED: SODIUM CHLORIDE 0.9% 250 ML IV ONE (08:55)
[2020-11-04] MEDS ORDERED: polyethylene glycoL 3350 17 GM PACKET PO SCH (09:00)
[2020-11-04] MEDS ORDERED: cefTRIAXone 1 GM in SODIUM CHLORIDE 0.9% MINIBAG 100 ML IV SCH (09:00)
[2020-11-04] MEDS: POTASSIUM CHLOR 10 MEQ/100 ML 10 MEQ/100 ML BAG IV SCH ×3 (10:06→14:00)
[2020-11-04] MEDS: AZITHROMYCIN INJ 500 MG in SODIUM CHLORIDE 0.9% 250 ML IV SCH (10:58)
[2020-11-04] MEDS ORDERED: cefTRIAXone 1 GM in SODIUM CHLORIDE 0.9% MINIBAG 100 ML IV ONE (11:00)
--- NOTE | 2020-11-04 11:22 | PROVIDER PROGRESS NOTE ---
Assessment/Plan - Problem List (1) Acute respiratory failure with hypoxia Assessment/Plan: He tolerated nasal cannula oxygen, did not pull it off. At about 1130 he started to have diaphoresis, got agitated and desaturation was noted at that time: sats dropped to 75%. This is the same as an episode that happened in the ER yesterday. He was also more confused when desaturating. His Echo done yesterday shows a significant Cor Pulmonale. He used to be a smoker. Will schedule nebulizer treatments. Supplemental oxygen to continue. Continue to treat the underlying problem, the pneumonia. (2) CAP (community acquired pneumonia) Assessment/Plan: Bilateral infiltrates. Continue with empiric IV antibiotics. Will add probiotic. Continue with supplemental oxygen as needed. We will order Mucinex for pulmonary toilet, now that he is more awake and able to swallow his pills. (3) Cor pulmonale Assessment/Plan: The Echo was quite remarkable. He has a severely dilated RV with moderately depressed RVEF. His PA pressure is elevated at 64 mmHg. He has never had an echo here, to have for comparison. I suspect RV failure is the reason for the elevated BNP of 800 at admission. He was a smoker of many years, which may have caused the Cor pulmonale and pulmonary HTN. Will order scheduled nebulizer treatments plus prn nebs, start Singular at hs, continue supplemental O2, keeping sats > 88%. (4) Prerenal azotemia Assessment/Plan: His BUN/creatinine ratio are still showing prerenal. Since he had the echo showing preserved LVEF, continue with IV hydration, will increase the iv rate. Avoid nephrotoxins. Continue to monitor BMP daily. (5) Fracture of superior pubic ramus Qualifiers: Encounter type: subsequent encounter Fracture type: closed Laterality: left Fracture healing: with nonunion Qualified Code(s): S32.512K - Fracture of superior rim of left pubis, subsequent encounter for fracture with nonunion Assessment/Plan: He fell on the day before this hospitalization, and in the ER he was documented by imaging to have a fracture of the pubic ramus PT evaluation will be ordered today, to see if pain or this fracture impacts his ambulation. Continue with as needed pain meds. (6) Lewy body dementia Qualifiers: Dementia behavioral disturbance: with behavioral disturbance Qualified Code(s): G31.83 - Dementia with Lewy bodies; F02.81 - Dementia in other diseases classified elsewhere with behavioral disturbance Assessment/Plan: Patient is on Aricept and also gets nightly bowel meds to prevent constipation which, his reported, he has because of the Lewy body dementia. Agitation was treated yesterday with IV Ativan x1, it caused him to sleep excessively. Today he was able to carry on a conversation with hospital staff, as he has very good long-term memory, poor short-term memory and poor orientation. (7) Frequent falls Assessment/Plan: He has had multiple falls causing trauma, fractures, rib fractures leading to fl ail chest in the past. Because of these falls he is no longer on anticoagulation for stroke prophylaxis in his chronic A. fib (8) Orthostatic hypotension Assessment/Plan: This has probably led to his frequent falls His home dose of Florinef has been continued to use here. Compression stockings were ordered, as his DVT prophylaxis as well. (9) Chronic a-fib Assessment/Plan: His heart rate is overall well controlled, on the medical management he was on before admission. He no longer gets anticoagulants for stroke prophylaxis due to history of frequent falls (10) Anemia Assessment/Plan: Globin has dropped to 10, since IV fluids were started. We will check B12, folate levels and iron stores and replace if low. - Current Meds Current Meds: Current Medications Generic Name Dose Route Start Last Admin Trade Name Caprice PRN Reason Stop Dose Admin Acetaminophen 650 mg 11/03/20 08:18 11/04/20 00:50 Acetaminophen 325 Mg Tablet PO 650 mg Q4HR PRN Administration Pain or Fever > 38C (100.4F) Carbidopa/Levodopa 1 tab 11/03/20 17:00 11/04/20 08:51 Carbidopa/Levodopa 25 Mg/100 Mg Tablet PO 1 tab QID YANELY Administration Digoxin 125 mcg 11/04/20 09:00 11/04/20 08:51 Digoxin 125 Mcg Tablet PO 125 mcg DAILY YANELY Administration Diltiazem HCl 120 mg 11/04/20 09:00 11/04/20 08:51 Diltiazem Cd 120 Mg Capsule PO 120 mg DAILY YANELY Administration Donepezil HCl 10 mg 11/04/20 09:00 11/04/20 08:51 Donepezil 5 Mg Tablet PO 10 mg DAILY YANELY Administration Famotidine 20 mg 11/03/20 21:00 11/04/20 08:52 Famotidine 20 Mg Tablet PO 20 mg BID YANELY Administration Fludrocortisone Acetate 0.2 mg 11/03/20 09:00 11/04/20 08:51 Fludrocortisone 0.1 Mg Tablet PO 0.2 mg DAILY YANELY Administration Dextrose/Sodium Chloride 1,000 mls @ 100 mls/hr 11/03/20 09:00 11/04/20 10:00 D5ns IV 0 mls/hr .Q10H YANELY Infusion Azithromycin 500 mg/ Sodium 250 mls @ 250 mls/hr 11/04/20 09:00 11/04/20 10:58 Chloride IV 250 mls/hr DAILY YANELY Administration Potassium Chloride 10 meq in 100 mls @ 100 mls/hr 11/04/20 10:00 11/04/20 10:06 Potassium Chloride IV 11/04/20 12:59 100 mls/hr Q1H YANELY Administration Magnesium Oxide 400 mg 11/04/20 08:00 11/04/20 07:44 Magnesium Oxide 400 Mg Tablet PO 400 mg DAILYWM YANELY Administration Mirtazapine 30 mg 11/03/20 21:00 11/03/20 22:37 Mirtazapine 15 Mg Tablet PO 30 mg QPM YANELY Administration Polyethylene Glycol 17 gm 11/04/20 09:00 11/04/20 08:52 Polyethylene Glycol 3350 17 Gm Packet PO 17 gm DAILY YANELY Administration Sodium Chloride 10 ml 11/03/20 09:00 11/04/20 08:52 Sodium Chloride Flush 0.9% 10 Ml Syringe IVP 10 ml 0100,0900,1700 YANELY Administration - Lab Result Fish Bone Diagrams: 11/04/20 04:13 11/04/20 04:13 - Additional Planning My Orders: My Active Orders 11/03/20 Lunch Soft Mechanical Diet [DIET] 11/03/20 13:10 Echo Transthoracic Complete [ECHO] Routine 11/03/20 17:00 Carbidopa/Levodopa 25/100 [Sinemet 25 mg/100 mg] 1 tab PO QID 11/03/20 18:40 Melatonin/Pyridoxine [Melatonin 5 mg Tablet] 1 each PO PRN PRN 11/03/20 21:00 Famotidine [Pepcid] 20 mg PO BID Mirtazapine [Remeron] 30 mg PO QPM 11/04/20 Evaluate and Treat PT [PT] Routine 11/04/20 08:00 Magnesium Oxide [Mag Ox] 400 mg PO DAILYWM 11/04/20 09:00 Azithromycin Inj [Zithromax Inj] 500 mg Sodium Chloride 0.9% [Normal Saline 0.9%] 250 ml IV DAILY Digoxin [Lanoxin] 125 mcg PO DAILY Donepezil [Aricept] 10 mg PO DAILY Mirabegron [Myrbetriq] 25 mg PO DAILY diltiaZEM CD [Cardizem Cd] 120 mg PO DAILY polyethylene glycoL 3350 [Miralax] 17 gm PO DAILY 11/04/20 10:00 Potassium Chlor 10 Meq/100 ml [Potassium Chloride] 10 meq in 100 ml IV Q1H 11/04/20 11:00 cefTRIAXone [Rocephin] 1 gm Sodium Chloride 0.9% Minibag [Normal Saline 0.9% Minibag] 100 ml IV ONCE 11/05/20 05:00 BMP - BASIC METABOLIC PANEL [CHEM] DAILYLAB CBC - COMP BLD CT W/AUTO DIFF [HEME] DAILYLAB 11/05/20 09:00 cefTRIAXone [Rocephin] 2 gm Sodium Chloride 0.9% Minibag [Normal Saline 0.9% Minibag] 100 ml IV DAILY 11/06/20 05:00 BMP - BASIC METABOLIC PANEL [CHEM] DAILYLAB CBC - COMP BLD CT W/AUTO DIFF [HEME] DAILYLAB Subjective - Subjective Patient Reports: Other (Speaking gibberish and fiddling with his phone. When asked a question directly he answers appropriately and even has a different demeanor.) Objective Vital Signs: Vital Signs - 24 hr 11/03/20 11/04/20 11/04/20 16:00 00:40 08:40 Temperature 37.2 C 37.0 C 36.5 C Heart Rate [ 91 74 79 Brachial] Respiratory 18 20 24 Rate Blood Pressure 150/73 H 153/84 H 160/94 H [Left Brachial artery] O2 Saturation 92 94 96 Oxygen O2 Source Oxymask Oxygen Flow Rate 4 I&O (Last 24 Hrs): Intake and Output Totals x24h 11/02/20 11/03/20 11/04/20 23:59 23:59 23:59 Intake Total 0961.328 2913.000 Balance 3315.855 6429.000 General: Other (Appears diaphoretic and poorly kempt.) HEENT: EOMI Neck: Supple, No JVD Neuro: Disoriented, Non Focal Cardiovascular: Regular rate, No murmurs Respiratory: Other (Diminished breath sounds, prolonged expiratory phase, no rales, rhonchi or wheezes) Abdomen: Soft Extremities: No edema - Results Results: Laboratory Results WBC 7.0 x10^3/uL (4.8-10.8) 11/04/20 04:13 RBC 3.09 10^6/uL (4.70-6.10) L 11/04/20 04:13 Hgb 10.2 g/dL (14.0-18.0) L 11/04/20 04:13 Hct 31.5 % (42.0-52.0) L 11/04/20 04:13 MCV 101.9 fL (80.0-94.0) H 11/04/20 04:13 MCH 33.0 pg (27.0-31.0) H 11/04/20 04:13 MCHC 32.4 g/dL (32.0-36.0) 11/04/20 04:13 RDW 13.8 % (12.0-15.0) 11/04/20 04:13 Plt Count 145 10^3/uL (130-450) 11/04/20 04:13 MPV 9.7 fL (7.4-11.4) 11/04/20 04:13 Neut # (Auto) 4.9 10^3/uL (1.5-6.6) 11/04/20 04:13 Lymph # (Auto) 0.7 10^3/uL (1.5-3.5) L 11/04/20 04:13 [place] # (Auto) 0.7 10^3/uL (0.0-1.0) 11/04/20 04:13 Eos # (Auto) 0.7 10^3/uL (0.0-0.7) 11/04/20 04:13 Baso # (Auto) 0.0 10^3/uL (0.0-0.1) 11/04/20 04:13 Absolute Nucleated RBC 0.00 x10^3/uL 11/04/20 04:13 Nucleated RBC % 0.0 /100WBC 11/04/20 04:13 Sodium 145 mmol/L (135-145) 11/04/20 04:13 Potassium 3.3 mmol/L (3.5-5.0) L 11/04/20 04:13 Chloride 114 mmol/L (101-111) H 11/04/20 04:13 Carbon Dioxide 24 mmol/L (21-32) 11/04/20 04:13 Anion Gap 7.0 (6-13) 11/04/20 04:13 BUN 30 mg/dL (6-20) H 11/04/20 04:13 Creatinine 1.0 mg/dL (0.6-1.2) 11/04/20 04:13 Estimated GFR (MDRD) 72 (>89) L 11/04/20 04:13 Glucose 121 mg/dL (70-100) H 11/04/20 04:13 Lactic Acid 1.0 mmol/L (0.5-2.2) 11/03/20 02:42 Calcium 8.0 mg/dL (8.5-10.3) L 11/04/20 04:13 Total Bilirubin 1.7 mg/dL (0.2-1.0) H 11/03/20 02:42 AST 23 IU/L (10-42) 11/03/20 02:42 ALT < 10 IU/L (10-60) L 11/03/20 02:42 Alkaline Phosphatase 83 IU/L (42-121) 11/03/20 02:42 Troponin I High Sens 12.2 ng/L (2.3-19.7) 11/03/20 15:13 B-Natriuretic Peptide 832 pg/mL (5-100) H 11/03/20 02:42 Total Protein 7.2 g/dL (6.7-8.2) 11/03/20 02:42 Albumin 3.7 g/dL (3.2-5.5) 11/03/20 02:42 Globulin 3.5 g/dL (2.1-4.2) 11/03/20 02:42 Albumin/Globulin Ratio 1.1 (1.0-2.2) 11/03/20 02:42 Lipase 20 U/L (22-51) L 11/03/20 02:42 Urine Color DARK YELLOW 11/03/20 06:55 Urine Clarity CLEAR (CLEAR) 11/03/20 06:55 Urine pH 5.5 PH (5.0-7.5) 11/03/20 06:55 Ur Specific [place] 1.015 (1.002-1.030) 11/03/20 06:55 Urine Protein 30 mg/dL (NEGATIVE) H 11/03/20 06:55 Urine Glucose (UA) NEGATIVE mg/dL (NEGATIVE) 11/03/20 06:55 Urine Ketones NEGATIVE mg/dL (NEGATIVE) 11/03/20 06:55 Urine Occult Blood NEGATIVE (NEGATIVE) 11/03/20 06:55 Urine Nitrite POSITIVE (NEGATIVE) H 11/03/20 06:55 Urine Bilirubin NEGATIVE (NEGATIVE) 11/03/20 06:55 Urine Urobilinogen 1 (NORMAL) E.U./dL (NORMAL) 11/03/20 06:55 Ur Leukocyte Esterase NEGATIVE (NEGATIVE) 11/03/20 06:55 Urine RBC 0-5 /HPF (0-5) 11/03/20 06:55 Urine WBC 0-3 /HPF (0-3) 11/03/20 06:55 Ur Squamous Epith Cells FEW Squamous (<= Few) 11/03/20 06:55 Urine Bacteria Few /HPF (None Seen) 11/03/20 06:55 Urine Mucus Few Strands 11/03/20 06:55 Ur Microscopic Review INDICATED 11/03/20 06:55 Urine Culture Comments INDICATED 11/03/20 06:55 Nasal Adenovirus (PCR) NOT DETECTED 11/03/20 05:56 Nasal B. parapertussis DNA (PCR) NOT DETECTED 11/03/20 05:56 Nasal Coronavir 229E PCR NOT DETECTED 11/03/20 05:56 Nasal Coronavir HKU1 PCR NOT DETECTED 11/03/20 05:56 Nasal Coronavir NL63 PCR NOT DETECTED 11/03/20 05:56 Nasal Coronavir OC43 PCR NOT DETECTED 11/03/20 05:56 Nasal Enterovir/Rhinovir PCR NOT DETECTED 11/03/20 05:56 Nasal Influenza B PCR NOT DETECTED 11/03/20 05:56 Nasal Influenza A PCR NOT DETECTED 11/03/20 05:56 Nasal Parainfluen 1 PCR NOT DETECTED 11/03/20 05:56 Nasal Parainfluen 2 PCR NOT DETECTED 11/03/20 05:56 Nasal Parainfluen 3 PCR NOT DETECTED 11/03/20 05:56 Nasal Parainfluen 4 PCR NOT DETECTED 11/03/20 05:56 Nasal RSV (PCR) NOT DETECTED 11/03/20 05:56 Nasal B.pertussis DNA PCR NOT DETECTED 11/03/20 05:56 Nasal C.pneumoniae (PCR) NOT DETECTED 11/03/20 05:56 Kenneth Human Metapneumo PCR NOT DETECTED 11/03/20 05:56 Nasal M.pneumoniae (PCR) NOT DETECTED 11/03/20 05:56 Nasal SARS-CoV-2 (PCR) NOT DETECTED 11/03/20 05:56 Last Dose Date NA 11/03/20 02:42 Last Dose Time NA 11/03/20 02:42 Digoxin 0.5 ng/mL 11/03/20 02:42
[2020-11-04] MEDS ORDERED: NAPROXEN 250 MG TABLET PO PRN (13:15)
[2020-11-04] MEDS: LACTOBACILLUS RHAMNOSUS GG CAPSULE PO SCH (14:05)
[2020-11-04] MEDS: MIRTAZAPINE 15 MG TABLET PO SCH (20:52)
[2020-11-04] MEDS: guaiFENesin 600 MG TABLET PO SCH (20:52)
[2020-11-04] MEDS: MONTELUKAST 10 MG TABLET PO SCH (20:52)
[2020-11-05] MEDS: IPRATROPIUM/ALBUTEROL 3 ML NEB INH PRN (03:04)
[2020-11-05] MEDS: SODIUM CHLORIDE FLUSH 0.9% 10 ML SYRINGE IVP SCH ×3 (03:26→17:39)
[2020-11-05 04:44] LABS: BASOPHILS % (AUTO) 0.4 %; EOSINOPHILS # (AUTO) 0.4 10^3/uL (0.0-0.7); EOSINOPHILS % (AUTO) 5.4 %; HCT - HEMATOCRIT 31.9 % (42.0-52.0); HGB - HEMOGLOBIN 9.9 g/dL (14.0-18.0); LYMPHOCYTES # (AUTO) 0.7 10^3/uL (1.5-3.5); LYMPHOCYTES % (AUTO) 10.8 %; MEAN CORPUSCULAR HEMOGLOBIN 31.9 pg (27.0-31.0); MEAN CORPUSCULAR VOLUME 102.9 fL (80.0-94.0); MEAN PLATELET VOLUME 9.8 fL (7.4-11.4); MONOCYTES # (AUTO) 0.6 10^3/uL (0.0-1.0); MONOCYTES % (AUTO) 8.8 %; NEUTROPHILS % (AUTO) 74.2 %; PLT - PLATELET COUNT 148 10^3/uL (130-450); RED CELL DISTRIBUTION WIDTH 13.9 % (12.0-15.0); WHITE BLOOD COUNT 6.7 x10^3/uL (4.8-10.8)
[2020-11-05 05:03] LABS: CALCIUM 8.3 mg/dL (8.5-10.3); CREATININE 0.9 mg/dL (0.6-1.2); POTASSIUM 3.5 mmol/L (3.5-5.0)
[2020-11-05 05:35] LABS: FOLATE 16.23 ng/mL (5.90 - >24.8)
[2020-11-05] MEDS ORDERED: OLANZapine 10 MG VIAL IM ONE (06:31)
[2020-11-05] MEDS: MAGNESIUM OXIDE 400 MG TABLET PO SCH (07:42)
[2020-11-05] MEDS: DEXTROSE 5%-0.9% NACL 1,000 ML IV SCH (07:43)
[2020-11-05] MEDS: FLUDROCORTISONE 0.1 MG TABLET PO SCH (08:29)
[2020-11-05] MEDS: CARBIDOPA/LEVODOPA 25 MG/100 MG TABLET PO SCH ×4 (08:29→20:30)
[2020-11-05] MEDS: DONEPEZIL 5 MG TABLET PO SCH (08:29)
[2020-11-05] MEDS: FAMOTIDINE 20 MG TABLET PO SCH ×2 (08:29→20:29)
[2020-11-05] MEDS: guaiFENesin 600 MG TABLET PO SCH ×2 (08:29→20:30)
[2020-11-05] MEDS: DOCUSATE SODIUM 250 MG CAPSULE PO SCH (08:29)
[2020-11-05] MEDS: SENNA 8.6 MG TABLET PO SCH (08:30)
[2020-11-05] MEDS: DIGOXIN 125 MCG TABLET PO SCH (08:30)
[2020-11-05] MEDS: ACETAMINOPHEN 325 MG TABLET PO PRN ×2 (08:30→16:25)
[2020-11-05] MEDS: diltiaZEM CD 120 MG CAPSULE PO SCH (08:30)
[2020-11-05] MEDS: cefTRIAXone 2 GM in SODIUM CHLORIDE 0.9% MINIBAG 100 ML IV SCH (08:31)
[2020-11-05] MEDS: polyethylene glycoL 3350 17 GM PACKET PO SCH (08:31)
--- NOTE | 2020-11-05 08:35 | PROVIDER PROGRESS NOTE ---
Assessment/Plan - Problem List (1) Acute respiratory failure with hypoxia Assessment/Plan: He still requires O2 per oximizer to maintain sats up Recheck CXR today>> unchanged bilat infiltrates and pulm edema. Will give Morphine iv for dyspnea. Will give Lasix iv x1. Continue O2, keeping sat > 88% (in COP[place]) I called the , Vanesa Ch, and updated her on his condition today (2) Hypernatremia Assessment/Plan: We will change his IV fluid of D5 NS at 100cc/hr to D5 0.5 NS at 40 cc/hr. Follow BMP daily (3) CAP (community acquired pneumonia) Assessment/Plan: Ammonia plus probable CHF. We will continue with empiric antibioticsHest x-ray done today, this showed no improvement (4) Cor pulmonale Assessment/Plan: As per echo done this admission. We will decrease IV fluids because of volume overload seen on chest x-ray and need for Lasix (5) Fracture of superior pubic ramus Qualifiers: Encounter type: subsequent encounter Fracture type: closed Laterality: left Fracture healing: with nonunion Qualified Code(s): S32.512K - Fracture of superior rim of left pubis, subsequent encounter for fracture with nonunion Assessment/Plan: Was less pain and discomfort with movement. PT is working with him (6) Lewy body dementia Qualifiers: Dementia behavioral disturbance: with behavioral disturbance Qualified Code(s): G31.83 - Dementia with Lewy bodies; F02.81 - Dementia in other diseases classified elsewhere with behavioral disturbance Assessment/Plan: He sundowned last evening and was awake all night, was agitated, needed Zyprexa and resting. Seroquel now ordered scheduled to give every evening. Continue his Aricept an meds from home. I spoke to the by phone today and updated her on his entire condition. She reported that they spoke last night when he was agitated, she told me that Se roquel works for him. (7) Frequent falls Assessment/Plan: As per Hx (8) Orthostatic hypotension Assessment/Plan: as per Hx Flurinef contin ues here. It has added to the hypernatremia, will be adjusting iv fluids (9) Chronic a-fib Assessment/Plan: HR is controlled. Dig level was OK at admission. (10) Anemia Qualifiers: Anemia type: iron deficiency Assessment/Plan: His B12 and folate levels are adequate. His iron stores are very low. We will begin oral liquid iron replacement daily. - Current Meds Current Meds: Current Medications Generic Name Dose Route Start Last Admin Trade Name Caprice PRN Reason Stop Dose Admin Acetaminophen 650 mg 11/03/20 08:18 11/04/20 20:52 Acetaminophen 325 Mg Tablet PO 650 mg Q4HR PRN Administration Pain or Fever > 38C (100.4F) Albuterol/Ipratropium 3 ml 11/04/20 12:30 11/05/20 03:04 Ipratropium/Albuterol 3 Ml Neb INH 3 ml Q4HR PRN Administration Wheezing Carbidopa/Levodopa 1 tab 11/03/20 17:00 11/04/20 20:52 Carbidopa/Levodopa 25 Mg/100 Mg Tablet PO 1 tab QID YANELY Administration Digoxin 125 mcg 11/04/20 09:00 11/04/20 08:51 Digoxin 125 Mcg Tablet PO 125 mcg DAILY YANELY Administration Diltiazem HCl 120 mg 11/04/20 09:00 11/04/20 08:51 Diltiazem Cd 120 Mg Capsule PO 120 mg DAILY YANELY Administration Donepezil HCl 10 mg 11/04/20 09:00 11/04/20 08:51 Donepezil 5 Mg Tablet PO 10 mg DAILY YANELY Administration Famotidine 20 mg 11/03/20 21:00 11/04/20 20:52 Famotidine 20 Mg Tablet PO 20 mg BID YANELY Administration Fludrocortisone Acetate 0.2 mg 11/03/20 09:00 11/04/20 08:51 Fludrocortisone 0.1 Mg Tablet PO 0.2 mg DAILY YANELY Administration Guaifenesin 600 mg 11/04/20 21:00 11/04/20 20:52 Guaifenesin 600 Mg Tablet PO 600 mg BID YANELY Administration Azithromycin 500 mg/ Sodium 250 mls @ 250 mls/hr 11/04/20 09:00 11/04/20 12:00 Chloride IV Infused DAILY YANELY Infusion Dextrose/Sodium Chloride 1,000 mls @ 125 mls/hr 11/04/20 12:41 11/05/20 07:43 D5ns IV 125 mls/hr .Q8H YANELY Administration Lactobacillus Rhamnosus 1 cap 11/04/20 12:32 11/04/20 14:05 Lactobacillus Rhamnosus Gg Capsule PO 1 cap DAILY YANELY Administration Magnesium Oxide 400 mg 11/04/20 08:00 11/05/20 07:42 Magnesium Oxide 400 Mg Tablet PO 400 mg DAILYWM YANELY Administration Mirtazapine 30 mg 11/03/20 21:00 11/04/20 20:52 Mirtazapine 15 Mg Tablet PO 30 mg QPM YANELY Administration Montelukast Sodium 10 mg 11/04/20 21:00 11/04/20 20:52 Montelukast 10 Mg Tablet PO 10 mg QPM YANELY Administration Polyethylene Glycol 17 gm 11/04/20 09:00 11/04/20 08:52 Polyethylene Glycol 3350 17 Gm Packet PO 17 gm DAILY YANELY Administration Sodium Chloride 10 ml 11/03/20 09:00 11/05/20 03:26 Sodium Chloride Flush 0.9% 10 Ml Syringe IVP Not Given 0100,0900,1700 YANELY - Lab Result Fish Bone Diagrams: 11/05/20 04:03 11/05/20 04:03 - Additional Planning My Orders: My Active Orders 11/04/20 08:00 Magnesium Oxide [Mag Ox] 400 mg PO DAILYWM 11/04/20 09:00 Azithromycin Inj [Zithromax Inj] 500 mg Sodium Chloride 0.9% [Normal Saline 0.9%] 250 ml IV DAILY Digoxin [Lanoxin] 125 mcg PO DAILY Donepezil [Aricept] 10 mg PO DAILY Mirabegron [Myrbetriq] 25 mg PO DAILY diltiaZEM CD [Cardizem Cd] 120 mg PO DAILY polyethylene glycoL 3350 [Miralax] 17 gm PO DAILY 11/04/20 12:30 Nebulizer/MDI Tx. [RC] .prnq4 Ipratropium/Albuterol [Duoneb] 3 ml INH Q4HR PRN Ipratropium/Albuterol [Duoneb] 3 ml INH RTQID PRN 11/04/20 12:32 Lactobacillus Rhamnosus GG [Culturelle] 1 cap PO DAILY 11/04/20 12:41 Dextrose 5%-0.9% NaCl [D5ns] 1,000 ml IV 125 mls/hr 11/04/20 13:03 Shower [RC] PRN 11/04/20 13:15 Naproxen [Naprosyn] 250 mg PO Q12H PRN 11/04/20 21:00 Montelukast [Singulair] 10 mg PO QPM guaiFENesin [Mucinex] 600 mg PO BID 11/05/20 08:33 Chest 1 View X-Ray [XR] Stat 11/05/20 09:00 Docusate Sodium 250Mg Capsule [Colace 250Mg Capsule] 250 - 500 mg PO DAILY Senna [Senokot] 8.6 - 17.2 mg PO DAILY cefTRIAXone [Rocephin] 2 gm Sodium Chloride 0.9% Minibag [Normal Saline 0.9% Minibag] 100 ml IV DAILY 11/06/20 05:00 BMP - BASIC METABOLIC PANEL [CHEM] DAILYLAB CBC - COMP BLD CT W/AUTO DIFF [HEME] DAILYLAB Subjective - Subjective Patient Reports: Other (Confused and talking gibberish in the morning, more alert and able to swallow and speak this afternoon) Objective Vital Signs: Vital Signs - 24 hr 11/04/20 11/04/20 11/04/20 08:40 11:40 16:00 Temperature 36.5 C 36.4 C L Heart Rate 85 Heart Rate [ 85 Activity] Heart Rate [ 79 65 Brachial] Respiratory 24 20 Rate Blood Pressure 145/79 H [Activity] Blood Pressure 160/94 H 145/92 H [Left Brachial artery] O2 Saturation 96 93 11/04/20 11/05/20 11/05/20 23:57 03:07 07:58 Temperature 36.8 C 37.1 C Heart Rate 71 Heart Rate [ Activity] Heart Rate [ 84 90 Brachial] Respiratory 18 24 30 H Rate Blood Pressure [Activity] Blood Pressure 152/88 H 159/85 H [Left Brachial artery] O2 Saturation 92 92 Oxygen O2 Source Oxymask Oxygen Flow Rate 4 I&O (Last 24 Hrs): Intake and Output Totals x24h 11/03/20 11/04/20 11/05/20 23:59 23:59 23:59 Intake Total 6290.950 0941.000 985.417 Balance 5531.293 5101.000 985.417 General: Alert, Mild distress (wheezing) HEENT: Atraumatic, EOMI, Mucous membr. moist/pink Neck: Supple Neuro: Alert, Disoriented, Other (stiff) Cardiovascular: Regular rate Respiratory: Wheezes, Rhonchi Abdomen: Soft Extremities: No edema - Results Results: Laboratory Results WBC 6.7 x10^3/uL (4.8-10.8) 11/05/20 04:03 RBC 3.10 10^6/uL (4.70-6.10) L 11/05/20 04:03 Hgb 9.9 g/dL (14.0-18.0) L 11/05/20 04:03 Hct 31.9 % (42.0-52.0) L 11/05/20 04:03 MCV 102.9 fL (80.0-94.0) H 11/05/20 04:03 MCH 31.9 pg (27.0-31.0) H 11/05/20 04:03 MCHC 31.0 g/dL (32.0-36.0) L 11/05/20 04:03 RDW 13.9 % (12.0-15.0) 11/05/20 04:03 Plt Count 148 10^3/uL (130-450) 11/05/20 04:03 MPV 9.8 fL (7.4-11.4) 11/05/20 04:03 Neut # (Auto) 5.0 10^3/uL (1.5-6.6) 11/05/20 04:03 Lymph # (Auto) 0.7 10^3/uL (1.5-3.5) L 11/05/20 04:03 [place] # (Auto) 0.6 10^3/uL (0.0-1.0) 11/05/20 04:03 Eos # (Auto) 0.4 10^3/uL (0.0-0.7) 11/05/20 04:03 Baso # (Auto) 0.0 10^3/uL (0.0-0.1) 11/05/20 04:03 Absolute Nucleated RBC 0.00 x10^3/uL 11/05/20 04:03 Nucleated RBC % 0.0 /100WBC 11/05/20 04:03 Sodium 148 mmol/L (135-145) H 11/05/20 04:03 Potassium 3.5 mmol/L (3.5-5.0) 11/05/20 04:03 Chloride 116 mmol/L (101-111) H 11/05/20 04:03 Carbon Dioxide 24 mmol/L (21-32) 11/05/20 04:03 Anion Gap 8.0 (6-13) 11/05/20 04:03 BUN 28 mg/dL (6-20) H 11/05/20 04:03 Creatinine 0.9 mg/dL (0.6-1.2) 11/05/20 04:03 Estimated GFR (MDRD) 81 (>89) L 11/05/20 04:03 Glucose 121 mg/dL (70-100) H 11/05/20 04:03 Lactic Acid 1.0 mmol/L (0.5-2.2) 11/03/20 02:42 Calcium 8.3 mg/dL (8.5-10.3) L 11/05/20 04:03 Iron 19 ug/dL (45-182) L 11/05/20 04:03 TIBC 227 ug/dL (250-450) L 11/05/20 04:03 % Saturation 8 % (20-50) L 11/05/20 04:03 Transferrin 162 mg/dL (180-329) L 11/05/20 04:03 Total Bilirubin 1.7 mg/dL (0.2-1.0) H 11/03/20 02:42 AST 23 IU/L (10-42) 11/03/20 02:42 ALT < 10 IU/L (10-60) L 11/03/20 02:42 Alkaline Phosphatase 83 IU/L (42-121) 11/03/20 02:42 Troponin I High Sens 12.2 ng/L (2.3-19.7) 11/03/20 15:13 B-Natriuretic Peptide 832 pg/mL (5-100) H 11/03/20 02:42 Total Protein 7.2 g/dL (6.7-8.2) 11/03/20 02:42 Albumin 3.7 g/dL (3.2-5.5) 11/03/20 02:42 Globulin 3.5 g/dL (2.1-4.2) 11/03/20 02:42 Albumin/Globulin Ratio 1.1 (1.0-2.2) 11/03/20 02:42 Lipase 20 U/L (22-51) L 11/03/20 02:42 Vitamin B12 329 pg/mL (180-914) 11/05/20 04:03 Folate 16.23 ng/mL (5.90 - >24.8) 11/05/20 04:03 Urine Color DARK YELLOW 11/03/20 06:55 Urine Clarity CLEAR (CLEAR) 11/03/20 06:55 Urine pH 5.5 PH (5.0-7.5) 11/03/20 06:55 Ur Specific [place] 1.015 (1.002-1.030) 11/03/20 06:55 Urine Protein 30 mg/dL (NEGATIVE) H 11/03/20 06:55 Urine Glucose (UA) NEGATIVE mg/dL (NEGATIVE) 11/03/20 06:55 Urine Ketones NEGATIVE mg/dL (NEGATIVE) 11/03/20 06:55 Urine Occult Blood NEGATIVE (NEGATIVE) 11/03/20 06:55 Urine Nitrite POSITIVE (NEGATIVE) H 11/03/20 06:55 Urine Bilirubin NEGATIVE (NEGATIVE) 11/03/20 06:55 Urine Urobilinogen 1 (NORMAL) E.U./dL (NORMAL) 11/03/20 06:55 Ur Leukocyte Esterase NEGATIVE (NEGATIVE) 11/03/20 06:55 Urine RBC 0-5 /HPF (0-5) 11/03/20 06:55 Urine WBC 0-3 /HPF (0-3) 11/03/20 06:55 Ur Squamous Epith Cells FEW Squamous (<= Few) 11/03/20 06:55 Urine Bacteria Few /HPF (None Seen) 11/03/20 06:55 Urine Mucus Few Strands 11/03/20 06:55 Ur Microscopic Review INDICATED 11/03/20 06:55 Urine Culture Comments INDICATED 11/03/20 06:55 Nasal Adenovirus (PCR) NOT DETECTED 11/03/20 05:56 Nasal B. parapertussis DNA (PCR) NOT DETECTED 11/03/20 05:56 Nasal Coronavir 229E PCR NOT DETECTED 11/03/20 05:56 Nasal Coronavir HKU1 PCR NOT DETECTED 11/03/20 05:56 Nasal Coronavir NL63 PCR NOT DETECTED 11/03/20 05:56 Nasal Coronavir OC43 PCR NOT DETECTED 11/03/20 05:56 Nasal Enterovir/Rhinovir PCR NOT DETECTED 11/03/20 05:56 Nasal Influenza B PCR NOT DETECTED 11/03/20 05:56 Nasal Influenza A PCR NOT DETECTED 11/03/20 05:56 Nasal Parainfluen 1 PCR NOT DETECTED 11/03/20 05:56 Nasal Parainfluen 2 PCR NOT DETECTED 11/03/20 05:56 Nasal Parainfluen 3 PCR NOT DETECTED 11/03/20 05:56 Nasal Parainfluen 4 PCR NOT DETECTED 11/03/20 05:56 Nasal RSV (PCR) NOT DETECTED 11/03/20 05:56 Nasal B.pertussis DNA PCR NOT DETECTED 11/03/20 05:56 Nasal C.pneumoniae (PCR) NOT DETECTED 11/03/20 05:56 Kenneth Human Metapneumo PCR NOT DETECTED 11/03/20 05:56 Nasal M.pneumoniae (PCR) NOT DETECTED 11/03/20 05:56 Nasal SARS-CoV-2 (PCR) NOT DETECTED 11/03/20 05:56 Last Dose Date NA 11/03/20 02:42 Last Dose Time NA 11/03/20 02:42 Digoxin 0.5 ng/mL 11/03/20 02:42
[2020-11-05] MEDS: LACTOBACILLUS RHAMNOSUS GG CAPSULE PO SCH (08:37)
[2020-11-05] MEDS ORDERED: DEXTROSE 5%-0.45% NACL 1,000 ML IV SCH (09:00)
--- NOTE | 2020-11-05 09:04 | XRAY Report ---
PROCEDURE: Chest 1 View X-Ray INDICATIONS: F/U pneumonia TECHNIQUE: One view of the chest was acquired. COMPARISON: 03/26/2019 chest x-ray. CT chest 11/03/2020 FINDINGS: Surgical changes and devices: None. Lungs and pleura: Small bilateral pleural effusions. No pneumothorax. Diffuse, patchy opacification noted in the lungs bilaterally. Lungs are hyperinflated consistent COPD. Mediastinum: Mediastinal contours appear normal. Heart is enlarged Bones and chest wall: Chronic right rib fractures stable compared to prior exam. No suspicious bony lesions. Overlying soft tissues appear unremarkable. IMPRESSION: Diffuse, patchy bilateral lung opacities which could represent multilobar pneumonia, pulmonary edema or combination of pneumonia and edema. Findings no significant change compared to CT scan obtained . Reviewed by: Penelope Funk MD, PhD on 11/05/2020 9:03 AM PDT Approved by: Penelope Funk MD, PhD on 11/05/2020 9:03 AM PDT Station ID: [id number]
[2020-11-05] MEDS: AZITHROMYCIN INJ 500 MG in SODIUM CHLORIDE 0.9% 250 ML IV SCH (09:10)
[2020-11-05] MEDS ORDERED: FUROSEMIDE 20 MG/2 ML VIAL IVP STA (09:11)
[2020-11-05] MEDS ORDERED: MORPHINE 2 MG/ML CARPUJECT IVP ONE (09:11)
[2020-11-05 09:32] LABS: ABG PCO2 35 mmHg (34-45); ABG PH 7.41 (7.35-7.45)
[2020-11-05 09:33] LABS: ABG BASE EXCESS -2.3 mmol/L (-2.0-3.0); ABG HCO3 21.8 mmol/L (22.0-26.0); ABG TCO2 22.8 MMOL/L (21.0-29.0); ALLEN TEST POSITIVE
[2020-11-05 09:36] LABS: ABG OXYGEN SATURATION 86 % (94-98); ABG PO2 51 mmHg (80-100)
[2020-11-05] MEDS: FERROUS SULFATE 300 MG/5 ML UDC PO SCH (11:01)
[2020-11-05] MEDS: MONTELUKAST 10 MG TABLET PO SCH (20:29)
[2020-11-05] MEDS: QUEtiapine 25 MG TABLET PO SCH (20:30)
[2020-11-05] MEDS: MIRTAZAPINE 15 MG TABLET PO SCH (20:30)
[2020-11-06] MEDS: SODIUM CHLORIDE FLUSH 0.9% 10 ML SYRINGE IVP SCH ×3 (00:40→16:41)
[2020-11-06] MEDS: IPRATROPIUM/ALBUTEROL 3 ML NEB INH PRN ×3 (01:14→19:45)
[2020-11-06 04:38] LABS: BASOPHILS % (AUTO) 0.1 %; EOSINOPHILS # (AUTO) 0.2 10^3/uL (0.0-0.7); EOSINOPHILS % (AUTO) 2.3 %; HCT - HEMATOCRIT 29.6 % (42.0-52.0); HGB - HEMOGLOBIN 9.5 g/dL (14.0-18.0); LYMPHOCYTES # (AUTO) 0.6 10^3/uL (1.5-3.5); LYMPHOCYTES % (AUTO) 7.9 %; MEAN CORPUSCULAR HEMOGLOBIN 32.6 pg (27.0-31.0); MEAN CORPUSCULAR HGB CONC 32.1 g/dL (32.0-36.0); MEAN CORPUSCULAR VOLUME 101.7 fL (80.0-94.0); MEAN PLATELET VOLUME 9.8 fL (7.4-11.4); MONOCYTES # (AUTO) 0.6 10^3/uL (0.0-1.0); MONOCYTES % (AUTO) 8.1 %; NEUTROPHILS # (AUTO) 5.8 10^3/uL (1.5-6.6); NEUTROPHILS % (AUTO) 81.3 %; PLT - PLATELET COUNT 166 10^3/uL (130-450); RED BLOOD COUNT 2.91 10^6/uL (4.70-6.10); WHITE BLOOD COUNT 7.1 x10^3/uL (4.8-10.8)
[2020-11-06 04:47] LABS: CALCIUM 7.9 mg/dL (8.5-10.3); CREATININE 1.2 mg/dL (0.6-1.2); POTASSIUM 3.4 mmol/L (3.5-5.0)
[2020-11-06] MEDS ORDERED: FUROSEMIDE 20 MG/2 ML VIAL IVP STA ×3 (06:57→16:18)
[2020-11-06] MEDS: MAGNESIUM OXIDE 400 MG TABLET PO SCH (07:53)
[2020-11-06] MEDS ORDERED: MORPHINE 2 MG/ML CARPUJECT IVP STA (08:32)
[2020-11-06] MEDS: cefTRIAXone 2 GM in SODIUM CHLORIDE 0.9% MINIBAG 100 ML IV SCH (08:55)
[2020-11-06 09:01] LABS: DIGOXIN 0.3 ng/mL; MAGNESIUM 2.1 mg/dL (1.7-2.8)
[2020-11-06] MEDS: FAMOTIDINE 20 MG TABLET PO SCH ×2 (10:03→22:32)
[2020-11-06] MEDS: LACTOBACILLUS RHAMNOSUS GG CAPSULE PO SCH (10:03)
[2020-11-06] MEDS: diltiaZEM CD 120 MG CAPSULE PO SCH (10:04)
[2020-11-06] MEDS: DIGOXIN 125 MCG TABLET PO SCH (10:04)
[2020-11-06] MEDS: DONEPEZIL 5 MG TABLET PO SCH (10:04)
[2020-11-06] MEDS: CARBIDOPA/LEVODOPA 25 MG/100 MG TABLET PO SCH ×4 (10:04→22:24)
[2020-11-06] MEDS: guaiFENesin 600 MG TABLET PO SCH ×2 (10:04→22:33)
[2020-11-06] MEDS: FLUDROCORTISONE 0.1 MG TABLET PO SCH (10:04)
[2020-11-06] MEDS: polyethylene glycoL 3350 17 GM PACKET PO SCH (10:05)
[2020-11-06] MEDS: FERROUS SULFATE 300 MG/5 ML UDC PO SCH (11:26)
--- NOTE | 2020-11-06 11:31 | PROVIDER PROGRESS NOTE ---
Assessment/Plan - Problem List (1) Acute respiratory failure with hypoxia Assessment/Plan: Today was the 3rd day in a row that, in the morning, he was agitated and confused, more SOB and desaturated. This occurred with no breakfast preceding it today, to suggest that he was aspirating food or fluids. Morphine 1 mg iv and Lasix 20 mg iv were dosed and O2 supplemental needed to be increased. His supplemental oxygen has needed to be increased progressively, during this hospital stay, from 4L>> 6L>> 10L>> 12L of oxygen currently. It appears he has COPD (by chest imaging, Hx of smoking and by Echo report of Cor pulmonale), therefore the saturation target for him is 88%, which has been ordered as such for RT. IV fluids will be stopped, Lasix will now be scheduled, iv Morphine prn dyspnea to continue, empiric antibiotics were started and will continue and will be broadened. Pulmonary toilet and nebs to continue. Will add Pulmicort neb bid. A formal swallowing eval with Speech Therapy will be ordered. Will try to get him more upright, and OOB in a chair at least daily. (2) CAP (community acquired pneumonia) Assessment/Plan: Since there was no improvement in bilateral infiltrates on CXR done yesterday, we are concerned he is aspirating. He completed a course of Zithromax and has beeen on empiric iv Ceftriaxone. He gave no sputum to send for culture. Will order clinical swallow eval by Speech Therapy to eval for aspiration. Will change antibiotics to cover anaerobes: iv Cefepime and iv Flagyl to start today. Continue Mucinex for pulm toilet. OOB to chair daily. Since he got Morphine for dyspnea and was too somnolent to participate in PT, will order OOB to chair daily using Liko lift. (3) Cor pulmonale Assessment/Plan: This was new Dx made by Echo done this admission. BNP 800's at admission>> 900's today, but he received iv hydration for several days. Will stop iv fluids and plan daily Lasix, given the continued CHF that was reported on CXR yesterday. (4) Fracture of superior pubic ramus Qualifiers: Encounter type: subsequent encounter Fracture type: closed Laterality: left Fracture healing: with nonunion Qualified Code(s): S32.512K - Fracture of superior rim of left pubis, subsequent encounter for fracture with nonunion Assessment/Plan: PT and pain meds prn are ordered. (5) Lewy body dementia Qualifiers: Dementia behavioral disturbance: with behavioral disturbance Qualified Code(s): G31.83 - Dementia with Lewy bodies; F02.81 - Dementia in other diseases classified elsewhere with behavioral disturbance Assessment/Plan: His described to me by phone that he usually has different problems daily; some days it is his speech, some days he cannot recognize her, some days it affects his bowels (constipation). Continue home Aricept. He is very sensitive to anesthetics, sedatives and narcotics, the told me, and that is why those broad categories are listed as Adverse Reactions on his allergy list. The told the Slitter Operator that Seroquel works when he is agitated, and this has been ordered as a scheduled med at hs now. (6) Frequent falls Assessment/Plan: As per hx. PT started working with him 3 days ago. There are parts of the day when he is cue-able and not agitated and confused. (7) Orthostatic hypotension Assessment/Plan: As per Hx. His home dose of Flurinef continues while here. (8) Chronic a-fib Assessment/Plan: His HR is controlled on current meds. Will recheck a Dig level. No telemetry ordered, so as not to fidget with leads, due to his dementia. He is not a candidate for aspirin or anticoagulant due to frequent falls Hx. (9) Anemia Qualifiers: Anemia type: iron deficiency Assessment/Plan: Oral liquid Iron replacement was started. (10) Hypernatremia Assessment/Plan: Resolved with changing NS to 0.5NS yesterday. Follow BMP daily. - Current Meds Current Meds: Current Medications Generic Name Dose Route Start Last Admin Trade Name Freq PRN Reason Stop Dose Admin Acetaminophen 650 mg 11/03/20 08:18 11/05/20 16:25 Acetaminophen 325 Mg Tablet PO 650 mg Q4HR PRN Administration Pain or Fever > 38C (100.4F) Albuterol/Ipratropium 3 ml 11/04/20 12:30 11/06/20 10:52 Ipratropium/Albuterol 3 Ml Neb INH 3 ml Q4HR PRN Administration Wheezing Carbidopa/Levodopa 1 tab 11/03/20 17:00 11/06/20 10:04 Carbidopa/Levodopa 25 Mg/100 Mg Tablet PO 1 tab QID YANELY Administration Digoxin 125 mcg 11/04/20 09:00 11/06/20 10:04 Digoxin 125 Mcg Tablet PO 125 mcg DAILY YANELY Administration Diltiazem HCl 120 mg 11/04/20 09:00 11/06/20 10:04 Diltiazem Cd 120 Mg Capsule PO 120 mg DAILY YAENLY Administration Docusate Sodium 250 - 500 mg 11/05/20 09:00 11/05/20 08:29 Docusate Sodium 250 Mg Capsule PO 250 mg DAILY YANELY Administration Donepezil HCl 10 mg 11/04/20 09:00 11/06/20 10:04 Donepezil 5 Mg Tablet PO 10 mg DAILY YANELY Administration Famotidine 20 mg 11/03/20 21:00 11/06/20 10:03 Famotidine 20 Mg Tablet PO 20 mg BID YANELY Administration Ferrous Sulfate 300 mg 11/05/20 11:00 11/06/20 11:26 Ferrous Sulfate 300 Mg/5 Ml Udc PO 300 mg 1100 YANELY Administration Fludrocortisone Acetate 0.2 mg 11/03/20 09:00 11/06/20 10:04 Fludrocortisone 0.1 Mg Tablet PO 0.2 mg DAILY YANELY Administration Guaifenesin 600 mg 11/04/20 21:00 11/06/20 10:04 Guaifenesin 600 Mg Tablet PO 600 mg BID YANELY Administration Ceftriaxone Sodium 2 gm/ 100 mls @ 200 mls/hr 11/05/20 09:00 11/06/20 09:25 Sodium Chloride IV Infused DAILY YANELY Infusion Lactobacillus Rhamnosus 1 cap 11/04/20 12:32 11/06/20 10:03 Lactobacillus Rhamnosus Gg Capsule PO 1 cap DAILY YANELY Administration Magnesium Oxide 400 mg 11/04/20 08:00 11/06/20 07:53 Magnesium Oxide 400 Mg Tablet PO 400 mg DAILYWM YANELY Administration Mirtazapine 30 mg 11/03/20 21:00 11/05/20 20:30 Mirtazapine 15 Mg Tablet PO 30 mg QPM YANELY Administration Montelukast Sodium 10 mg 11/04/20 21:00 11/05/20 20:29 Montelukast 10 Mg Tablet PO 10 mg QPM YANELY Administration Polyethylene Glycol 17 gm 11/04/20 09:00 11/06/20 10:05 Polyethylene Glycol 3350 17 Gm Packet PO 17 gm DAILY YANELY Administration Quetiapine Fumarate 12.5 mg 11/05/20 21:00 11/05/20 20:30 Quetiapine 25 Mg Tablet PO 12.5 mg QPM YANELY Administration Senna 8.6 - 17.2 mg 11/05/20 09:00 11/05/20 08:30 Senna 8.6 Mg Tablet PO 8.6 mg DAILY YANELY Administration Sodium Chloride 10 ml 11/03/20 09:00 11/06/20 07:40 Sodium Chloride Flush 0.9% 10 Ml Syringe IVP 10 ml 0100,0900,1700 YANELY Administration - Lab Result Fish Bone Diagrams: 11/06/20 04:00 11/06/20 04:00 - Additional Planning My Orders: My Active Orders 11/05/20 11:00 Ferrous Sulfate Liquid [Feosol Liquid] 300 mg PO 1100 11/06/20 11:15 Miscellaenous Nursing Order [RC] QSHIFT Soft Mechanical Diet [DIET] Subjective - Subjective Patient Reports: Other (Obtunded, awakens, grimaces and coughs, cannot follow commands) Nursing Reports: Other (was too SOB to eat breakfast, needs to be fed) Objective Vital Signs: Vital Signs - 24 hr 11/05/20 11/05/20 11/05/20 15:51 20:01 23:58 Temperature 36.8 C 37.4 C Heart Rate Heart Rate [ 77 75 Brachial] Respiratory 22 21 20 Rate Blood Pressure 141/89 H 165/91 H [Left Brachial artery] O2 Saturation 94 91 L 90 L 11/06/20 11/06/20 11/06/20 01:30 08:00 10:52 Temperature Heart Rate 88 90 Heart Rate [ 94 Brachial] Respiratory 24 22 24 Rate Blood Pressure 138/101 H [Left Brachial artery] O2 Saturation 89 L Oxygen O2 Source Oxymask Oxygen Flow Rate 4 I&O (Last 24 Hrs): Intake and Output Totals x24h 11/04/20 11/05/20 11/06/20 23:59 23:59 23:59 Intake Total 4105.000 2921.417 1044 Balance 4105.000 2921.417 1044 General: Mild distress (coughing, staring off ahead of him) HEENT: Other (Dry oral mucosa) Neck: Supple Neuro: Disoriented, Other (Obtunded) Cardiovascular: Regular rate Respiratory: Wheezes (Bialteral fine wheezes throughout lung gagnon) Abdomen: Soft Extremities: No edema - Results Results: Laboratory Results WBC 7.1 x10^3/uL (4.8-10.8) 11/06/20 04:00 RBC 2.91 10^6/uL (4.70-6.10) L 11/06/20 04:00 Hgb 9.5 g/dL (14.0-18.0) L 11/06/20 04:00 Hct 29.6 % (42.0-52.0) L 11/06/20 04:00 MCV 101.7 fL (80.0-94.0) H 11/06/20 04:00 MCH 32.6 pg (27.0-31.0) H 11/06/20 04:00 MCHC 32.1 g/dL (32.0-36.0) 11/06/20 04:00 RDW 14.0 % (12.0-15.0) 11/06/20 04:00 Plt Count 166 10^3/uL (130-450) 11/06/20 04:00 MPV 9.8 fL (7.4-11.4) 11/06/20 04:00 Neut # (Auto) 5.8 10^3/uL (1.5-6.6) 11/06/20 04:00 Lymph # (Auto) 0.6 10^3/uL (1.5-3.5) L 11/06/20 04:00 [place] # (Auto) 0.6 10^3/uL (0.0-1.0) 11/06/20 04:00 Eos # (Auto) 0.2 10^3/uL (0.0-0.7) 11/06/20 04:00 Baso # (Auto) 0.0 10^3/uL (0.0-0.1) 11/06/20 04:00 Absolute Nucleated RBC 0.00 x10^3/uL 11/06/20 04:00 Nucleated RBC % 0.0 /100WBC 11/06/20 04:00 Bld Gas Analysis Time 0930 11/05/20 09:25 Sample Site LEFT RADIAL 11/05/20 09:25 ABG pH 7.41 (7.35-7.45) 11/05/20 09:25 ABG pCO2 35 mmHg (34-45) 11/05/20 09:25 ABG pO2 51 mmHg (80-100) L* 11/05/20 09:25 ABG HCO3 21.8 mmol/L (22.0-26.0) L 11/05/20 09:25 ABG Total CO2 22.8 MMOL/L (21.0-29.0) 11/05/20 09:25 ABG O2 Saturation 86 % (94-98) L* 11/05/20 09:25 ABG Base Excess -2.3 mmol/L (-2.0-3.0) L 11/05/20 09:25 Ender Test POSITIVE 11/05/20 09:25 O2 Delivery Device OXYMIZER 11/05/20 09:25 O2 Liters/Min 12.00 LPM 11/05/20 09:25 Sodium 143 mmol/L (135-145) 11/06/20 04:00 Potassium 3.4 mmol/L (3.5-5.0) L 11/06/20 04:00 Chloride 109 mmol/L (101-111) 11/06/20 04:00 Carbon Dioxide 20 mmol/L (21-32) L 11/06/20 04:00 Anion Gap 14.0 (6-13) H 11/06/20 04:00 BUN 34 mg/dL (6-20) H 11/06/20 04:00 Creatinine 1.2 mg/dL (0.6-1.2) 11/06/20 04:00 Estimated GFR (MDRD) 58 (>89) L 11/06/20 04:00 Glucose 110 mg/dL (70-100) H 11/06/20 04:00 Lactic Acid 1.0 mmol/L (0.5-2.2) 11/03/20 02:42 Calcium 7.9 mg/dL (8.5-10.3) L 11/06/20 04:00 Magnesium 2.1 mg/dL (1.7-2.8) 11/06/20 04:00 Iron 19 ug/dL (45-182) L 11/05/20 04:03 TIBC 227 ug/dL (250-450) L 11/05/20 04:03 % Saturation 8 % (20-50) L 11/05/20 04:03 Transferrin 162 mg/dL (180-329) L 11/05/20 04:03 Total Bilirubin 1.7 mg/dL (0.2-1.0) H 11/03/20 02:42 AST 23 IU/L (10-42) 11/03/20 02:42 ALT < 10 IU/L (10-60) L 11/03/20 02:42 Alkaline Phosphatase 83 IU/L (42-121) 11/03/20 02:42 Troponin I High Sens 19.0 ng/L (2.3-19.7) 11/06/20 04:00 B-Natriuretic Peptide 907 pg/mL (5-100) H 11/06/20 04:00 Total Protein 7.2 g/dL (6.7-8.2) 11/03/20 02:42 Albumin 3.7 g/dL (3.2-5.5) 11/03/20 02:42 Globulin 3.5 g/dL (2.1-4.2) 11/03/20 02:42 Albumin/Globulin Ratio 1.1 (1.0-2.2) 11/03/20 02:42 Lipase 20 U/L (22-51) L 11/03/20 02:42 Vitamin B12 329 pg/mL (180-914) 11/05/20 04:03 Folate 16.23 ng/mL (5.90 - >24.8) 11/05/20 04:03 Urine Color DARK YELLOW 11/03/20 06:55 Urine Clarity CLEAR (CLEAR) 11/03/20 06:55 Urine pH 5.5 PH (5.0-7.5) 11/03/20 06:55 Ur Specific [place] 1.015 (1.002-1.030) 11/03/20 06:55 Urine Protein 30 mg/dL (NEGATIVE) H 11/03/20 06:55 Urine Glucose (UA) NEGATIVE mg/dL (NEGATIVE) 11/03/20 06:55 Urine Ketones NEGATIVE mg/dL (NEGATIVE) 11/03/20 06:55 Urine Occult Blood NEGATIVE (NEGATIVE) 11/03/20 06:55 Urine Nitrite POSITIVE (NEGATIVE) H 11/03/20 06:55 Urine Bilirubin NEGATIVE (NEGATIVE) 11/03/20 06:55 Urine Urobilinogen 1 (NORMAL) E.U./dL (NORMAL) 11/03/20 06:55 Ur Leukocyte Esterase NEGATIVE (NEGATIVE) 11/03/20 06:55 Urine RBC 0-5 /HPF (0-5) 11/03/20 06:55 Urine WBC 0-3 /HPF (0-3) 11/03/20 06:55 Ur Squamous Epith Cells FEW Squamous (<= Few) 11/03/20 06:55 Urine Bacteria Few /HPF (None Seen) 11/03/20 06:55 Urine Mucus Few Strands 11/03/20 06:55 Ur Microscopic Review INDICATED 11/03/20 06:55 Urine Culture Comments INDICATED 11/03/20 06:55 Nasal Adenovirus (PCR) NOT DETECTED 11/03/20 05:56 Nasal B. parapertussis DNA (PCR) NOT DETECTED 11/03/20 05:56 Nasal Coronavir 229E PCR NOT DETECTED 11/03/20 05:56 Nasal Coronavir HKU1 PCR NOT DETECTED 11/03/20 05:56 Nasal Coronavir NL63 PCR NOT DETECTED 11/03/20 05:56 Nasal Coronavir OC43 PCR NOT DETECTED 11/03/20 05:56 Nasal Enterovir/Rhinovir PCR NOT DETECTED 11/03/20 05:56 Nasal Influenza B PCR NOT DETECTED 11/03/20 05:56 Nasal Influenza A PCR NOT DETECTED 11/03/20 05:56 Nasal Parainfluen 1 PCR NOT DETECTED 11/03/20 05:56 Nasal Parainfluen 2 PCR NOT DETECTED 11/03/20 05:56 Nasal Parainfluen 3 PCR NOT DETECTED 11/03/20 05:56 Nasal Parainfluen 4 PCR NOT DETECTED 11/03/20 05:56 Nasal RSV (PCR) NOT DETECTED 11/03/20 05:56 Nasal B.pertussis DNA PCR NOT DETECTED 11/03/20 05:56 Nasal C.pneumoniae (PCR) NOT DETECTED 11/03/20 05:56 Kenneth Human Metapneumo PCR NOT DETECTED 11/03/20 05:56 Nasal M.pneumoniae (PCR) NOT DETECTED 11/03/20 05:56 Nasal SARS-CoV-2 (PCR) NOT DETECTED 11/03/20 05:56 Last Dose Date 11/05/20 11/06/20 04:00 Last Dose Time 08:30 11/06/20 04:00 Digoxin 0.3 ng/mL 11/06/20 04:00
[2020-11-06] MEDS: ACETAMINOPHEN 325 MG TABLET PO PRN (12:42)
[2020-11-06] MEDS: metroNIDAZOLE 500 MG/100 ML 500 MG/100 ML BAG IV SCH ×2 (12:43→20:51)
--- NOTE | 2020-11-06 14:37 | ADVANCE CARE PLANNING NOTE ---
Advance Care Planning - Planning Encounter Date: 11/06/20 Time: 13:00 Purpose: To update the , who is his DPOA, on his clinical status and review CODE STATUS. Parties in Attendance: I spoke to the by phone Decisional Capacity of the Patient: He has significant dementia and cannot make decisions - Diagnosis for Encounter (1) Lewy body dementia Qualifiers: Dementia behavioral disturbance: with behavioral disturbance Qualified Code(s): G31.83 - Dementia with Lewy bodies; F02.81 - Dementia in other diseases classified elsewhere with behavioral disturbance Summary: His mental status has worsened after needing iv Morphine for pain and dyspnea over the last 2 days, and he is not communicative today. His pneumonia and pulmonary edema are not improving, he is requiring higher O2 supplement settings, and despite meds for COPD, antibiotics, diuretics and Morphine, he is SOB and wheezing. 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 and has been to this for over 13 years. When he fell out of a moving golf cart 8 years ago, and after needing anesthesia for surgery, he has "nver been the same mentally", the said and has progressively worsened with mentation. He has been dx with Lewy Body Dementia and each day he has different problems: some days speech, some days recent memory, some days constipation. He takes Aricept. At the [facility] he was able to walk without a device, like a cane or walker. He could feed himself and has a great appetite. She spoke to him when he was agitated ( 2 nights ago) and heard how he was just speaking jiberish. Objective/Medical Story: He was diagnosed with bilateral pneumonia and CHF, is getting antibx, today broadened, nebs and today Pulmicort added. He has recevd iv Lasix for the past 2 days due to worsening sats when he is agitated in the mornings. I am concerned he is aspirating. He benefits from Morphine for dyspnea, but then he is sedated and cannot cooperate for half a day. I asked what he would do if he now became bedbound and wheelchair bound, and she said he would be very frustrated, as he was when he needed PT rehab after having shoulder surgery and hip surgery, because he used to be very active. The said she does not want him to be intubated "or kept on machines". I asked if she wants him to get CPR and be shocked, if there should be a cardiac arrest. She said to try it, but not to prolong CPR attempts over 20 min. Goals of Care: She is hoping for improvement but aware that he is slowly worsening. Plan: I will add Do Not Intubate to his medical orders. Code Status: Attempt Resuscitation Time spent on advance care plannin min
[2020-11-06] MEDS: BUDESONIDE 0.5 MG/2 ML NEB INH SCH ×2 (19:45→19:49)
[2020-11-06] MEDS: QUEtiapine 25 MG TABLET PO SCH (22:24)
[2020-11-06] MEDS: MONTELUKAST 10 MG TABLET PO SCH (22:25)
[2020-11-06] MEDS: MIRTAZAPINE 15 MG TABLET PO SCH (22:31)
[2020-11-06] MEDS: CEFEPIME 2 GM in SODIUM CHLORIDE 0.9% MINIBAG 100 ML IV SCH (22:33)
[2020-11-07] MEDS: metroNIDAZOLE 500 MG/100 ML 500 MG/100 ML BAG IV SCH ×3 (03:49→21:03)
[2020-11-07] MEDS: SODIUM CHLORIDE FLUSH 0.9% 10 ML SYRINGE IVP SCH ×3 (05:04→16:31)
[2020-11-07 07:50] LABS: BASOPHILS % (AUTO) 0.4 %; EOSINOPHILS # (AUTO) 0.4 10^3/uL (0.0-0.7); EOSINOPHILS % (AUTO) 5.7 %; HCT - HEMATOCRIT 31.7 % (42.0-52.0); LYMPHOCYTES # (AUTO) 0.4 10^3/uL (1.5-3.5); LYMPHOCYTES % (AUTO) 5.4 %; MEAN CORPUSCULAR HEMOGLOBIN 32.5 pg (27.0-31.0); MEAN CORPUSCULAR HGB CONC 31.5 g/dL (32.0-36.0); MEAN CORPUSCULAR VOLUME 102.9 fL (80.0-94.0); MEAN PLATELET VOLUME 9.5 fL (7.4-11.4); MONOCYTES # (AUTO) 0.6 10^3/uL (0.0-1.0); MONOCYTES % (AUTO) 7.4 %; NEUTROPHILS # (AUTO) 6.1 10^3/uL (1.5-6.6); NEUTROPHILS % (AUTO) 80.6 %; PLT - PLATELET COUNT 173 10^3/uL (130-450); RED BLOOD COUNT 3.08 10^6/uL (4.70-6.10); RED CELL DISTRIBUTION WIDTH 13.9 % (12.0-15.0); WHITE BLOOD COUNT 7.6 x10^3/uL (4.8-10.8)
[2020-11-07] MEDS: IPRATROPIUM/ALBUTEROL 3 ML NEB INH PRN ×2 (07:58→19:23)
[2020-11-07] MEDS: BUDESONIDE 0.5 MG/2 ML NEB INH SCH ×2 (07:58→19:23)
[2020-11-07 08:07] LABS: CALCIUM 8.2 mg/dL (8.5-10.3); CREATININE 0.9 mg/dL (0.6-1.2); POTASSIUM 3.2 mmol/L (3.5-5.0)
[2020-11-07] MEDS: SENNA 8.6 MG TABLET PO SCH ×2 (08:36→10:16)
[2020-11-07] MEDS: DOCUSATE SODIUM 250 MG CAPSULE PO SCH ×3 (08:36→11:09)
[2020-11-07] MEDS: CEFEPIME 2 GM in SODIUM CHLORIDE 0.9% MINIBAG 100 ML IV SCH ×2 (10:06→21:59)
[2020-11-07] MEDS: CARBIDOPA/LEVODOPA 25 MG/100 MG TABLET PO SCH ×4 (10:14→21:58)
[2020-11-07] MEDS: DIGOXIN 125 MCG TABLET PO SCH (10:14)
[2020-11-07] MEDS: MAGNESIUM OXIDE 400 MG TABLET PO SCH (10:14)
[2020-11-07] MEDS: diltiaZEM CD 120 MG CAPSULE PO SCH (10:14)
[2020-11-07] MEDS: FAMOTIDINE 20 MG TABLET PO SCH ×2 (10:15→21:58)
[2020-11-07] MEDS: FLUDROCORTISONE 0.1 MG TABLET PO SCH (10:15)
[2020-11-07] MEDS: DONEPEZIL 5 MG TABLET PO SCH (10:15)
[2020-11-07] MEDS: guaiFENesin 600 MG TABLET PO SCH ×2 (10:16→21:58)
[2020-11-07] MEDS: polyethylene glycoL 3350 17 GM PACKET PO SCH (10:16)
--- NOTE | 2020-11-07 10:58 | PROVIDER PROGRESS NOTE ---
Assessment/Plan - Problem List (1) Acute respiratory failure with hypoxia Assessment/Plan: He continues to need supplemental O2 (between 7L and 12L by oximizer) because of desaturation. He no longer pulls at the oximizer, from confusion. Will allow a target sat of 86%. We are continuing to treat the underlying infiltrates, COPD and CHF fluid. (2) CAP (community acquired pneumonia) Assessment/Plan: Since there was no improvement in bilateral infiltrates on repeat CXR, we are concerned he is aspirating. He gave no sputum to send for culture. He completed a course of Zithromax and has beeen on empiric iv Ceftriaxone. Yesterday, iv Flagyl was added. We ordered a clinical swallow eval by Speech Therapy to eval for aspiration, and he was too sleepy and confused to tolerate it, would not follow commands yesterday. Continue Mucinex for pulm toilet. OOB to chair daily, by lift if not by standing/walking. I gave the update on his entire condition today. (3) Cor pulmonale Assessment/Plan: This was new Dx made by Echo done this admission. His interventricular septum is so flattened, that it is functioning as if he has LV diastolic dysfunction. BNP was 800's at admission>> 900's, but he received iv hydration for several days. The BNP is down to 800's again today. His iv fluids were stopped yesterday and plan daily Lasix po, given the continued CHF on XRay and edema of fingers and hands. The cause appears to be COPD (seen on chest imaging, with Hx of smoking), therefore the saturation target for him will be 86%. Continue nebs, pulmonary toilet with Mucinex and Pulmicort neb was started yesterday. A formal swallowing eval with Speech Therapy was ordered, to eval for chronic aspiration Will try to get him more upright, and OOB in a chair at least daily. (4) Fracture of superior pubic ramus Qualifiers: Encounter type: subsequent encounter Fracture type: closed Laterality: left Fracture healing: with nonunion Qualified Code(s): S32.512K - Fracture of superior rim of left pubis, subsequent encounter for fracture with nonunion Assessment/Plan: PT and pain meds prn are ordered. He was able to walk without pain, 3-4 steps using a walker, per PT. (5) Lewy body dementia Qualifiers: Dementia behavioral disturbance: with behavioral disturbance Qualified Code(s): G31.83 - Dementia with Lewy bodies; F02.81 - Dementia in other diseases classified elsewhere with behavioral disturbance Assessment/Plan: His described to me by phone that he usually has different problems daily; some days it is his speech, some days he cannot recognize her, some days it affects his bowels (constipation). He is very sensitive to anesthetics, sedatives and narcotics, the told me, and that is why those broad categories are listed as Adverse Reactions on his allergy list. The told the Transportation Broker that Seroquel works when he is agitated, and this has been ordered as a scheduled med at now. With that, he has had good rest at nights and is more alert this morning. Continue home Aricept. I gave the update on his entire condition today, and that he was able to answer me in short sentences about his [employer] career, and I noticed that when he is distracted and able to discuss the remote past, he is less agitated. Will ask for POLITICAL SCIENCE PROFESSOR to engage him in discussions when he is awake. The will also be calling him. (6) Frequent falls Assessment/Plan: As per hx. This was likely related to orthostatic hypotension and Lewy Body Dementia/Parkinsonian symptoms. PT started working with him. For the last 2 days, he was too confused after getting a.m. Morphine for dyspnea, but today PT will resume. There are parts of the day when he is cue-able and not agitated and confused. (7) Orthostatic hypotension Assessment/Plan: As per Hx. His home dose of Flurinef 0.2 mg was continued, but will decrease it to 0.1 mg, due to recurrent Hypernatremia. (8) Hypernatremia Assessment/Plan: He was hypernatremic 2 days ago, NS was stopped and 0.5 NS started and sodium improved to 1434 yesterday. Yesterday the 0.5 NS was stopped because of CHF and needing iv Lasix and today the sodium went up to 148. We will decrease his Florinef from 0.2 mg daily 0.1 mg daily. We will give Lasix orally daily. If needed will give D5W for several hours. Follow BMP daily (9) Hypokalemia Assessment/Plan: Related to poor po intake here, and use of Flurinef, which promotes K loss. Will replace K. Follow BMP daily. (10) Chronic a-fib Assessment/Plan: His HR is controlled on current meds. The Dig level remains non-toxic at 0.3 yesterday morning, it was 0.5 at admission. No telemetry ordered, so as not to fidget with leads, due to his dementia. He is not a candidate for aspirin or anticoagulant due to frequent falls Hx. (11) Iron deficiency anemia Assessment/Plan: Oral liquid Iron replacement was started. Will order guaic of stool. - Current Meds Current Meds: Current Medications Generic Name Dose Route Start Last Admin Trade Name Freq PRN Reason Stop Dose Admin Acetaminophen 650 mg 11/03/20 08:18 11/06/20 12:42 Acetaminophen 325 Mg Tablet PO 650 mg Q4HR PRN Administration Pain or Fever > 38C (100.4F) Budesonide 0.5 mg 11/06/20 12:18 11/07/20 07:58 Budesonide 0.5 Mg/2 Ml Neb INH 0.5 mg RTBID YANELY Administration Carbidopa/Levodopa 1 tab 11/03/20 17:00 11/07/20 10:14 Carbidopa/Levodopa 25 Mg/100 Mg Tablet PO 1 tab QID YANELY Administration Digoxin 125 mcg 11/04/20 09:00 11/07/20 10:14 Digoxin 125 Mcg Tablet PO 125 mcg DAILY YANELY Administration Diltiazem HCl 120 mg 11/04/20 09:00 11/07/20 10:14 Diltiazem Cd 120 Mg Capsule PO 120 mg DAILY YANELY Administration Docusate Sodium 250 - 500 mg 11/05/20 09:00 11/07/20 10:15 Docusate Sodium 250 Mg Capsule PO 250 mg DAILY YANELY Administration Donepezil HCl 10 mg 11/04/20 09:00 11/07/20 10:15 Donepezil 5 Mg Tablet PO 10 mg DAILY YANELY Administration Famotidine 20 mg 11/03/20 21:00 11/07/20 10:15 Famotidine 20 Mg Tablet PO 20 mg BID YANELY Administration Ferrous Sulfate 300 mg 11/05/20 11:00 11/06/20 11:26 Ferrous Sulfate 300 Mg/5 Ml Udc PO 300 mg 1100 YANELY Administration Guaifenesin 600 mg 11/04/20 21:00 11/07/20 10:16 Guaifenesin 600 Mg Tablet PO 600 mg BID YANELY Administration Cefepime HCl 2 gm/ Sodium 100 mls @ 200 mls/hr 11/06/20 21:00 11/07/20 10:06 Chloride IV 200 mls/hr BID YANELY Administration Metronidazole 500 mg in 100 mls @ 100 mls/hr 11/06/20 12:00 11/07/20 05:03 Flagyl 500 Mg/100 Ml IV Infused Q8H YANELY Infusion Lactobacillus Rhamnosus 1 cap 11/04/20 12:32 11/06/20 10:03 Lactobacillus Rhamnosus Gg Capsule PO 1 cap DAILY YANELY Administration Magnesium Oxide 400 mg 11/04/20 08:00 11/07/20 10:14 Magnesium Oxide 400 Mg Tablet PO 400 mg DAILYWM YANELY Administration Mirtazapine 30 mg 11/03/20 21:00 11/06/20 22:31 Mirtazapine 15 Mg Tablet PO 30 mg QPM YANELY Administration Montelukast Sodium 10 mg 11/04/20 21:00 11/06/20 22:25 Montelukast 10 Mg Tablet PO 10 mg QPM YANELY Administration Polyethylene Glycol 17 gm 11/04/20 09:00 11/07/20 10:16 Polyethylene Glycol 3350 17 Gm Packet PO 17 gm DAILY YANELY Administration Quetiapine Fumarate 12.5 mg 11/05/20 21:00 11/06/20 22:24 Quetiapine 25 Mg Tablet PO 12.5 mg QPM YANELY Administration Senna 8.6 - 17.2 mg 11/05/20 09:00 11/07/20 10:16 Senna 8.6 Mg Tablet PO 8.6 mg DAILY YANELY Administration Sodium Chloride 10 ml 11/03/20 09:00 11/07/20 10:17 Sodium Chloride Flush 0.9% 10 Ml Syringe IVP 10 ml 0100,0900,1700 YANELY Administration - Lab Result Fish Bone Diagrams: 11/07/20 07:35 11/07/20 07:35 - Additional Planning My Orders: My Active Orders 11/06/20 11:15 Miscellaenous Nursing Order [RC] QSHIFT Soft Mechanical Diet [DIET] 11/06/20 11:41 Miscellaenous Nursing Order [RC] DAILY 11/06/20 12:00 metroNIDAZOLE 500 MG/100 ML [Flagyl 500 mg/100 ml] 500 mg in 100 ml IV Q8H 11/06/20 12:17 Peña Insertion [RC] QSHIFT 11/06/20 12:18 Budesonide [Pulmicort] 0.5 mg INH RTBID 11/06/20 14:35 Miscellaenous Nursing Order [RC] DAILY 11/06/20 21:00 Cefepime 2 gm Sodium Chloride 0.9% Minibag [Normal Saline 0.9% Minibag] 100 ml IV BID 11/07/20 09:00 Patient Own Med [Patient Own Medication] 1 each PO DAILY 11/07/20 11:00 Furosemide [Lasix] 20 mg PO DAILY 11/08/20 09:00 Fludrocortisone [Florinef] 0.1 mg PO DAILY Objective Vital Signs: Vital Signs - 24 hr 11/06/20 11/06/20 11/06/20 15:45 15:50 19:45 Temperature 37.2 C 37.2 C Heart Rate 86 70 Heart Rate [ 86 Brachial] Respiratory 22 22 18 Rate Blood Pressure 97/66 [Left Brachial artery] Blood Pressure [Right Brachial artery] O2 Saturation 92 90 L 11/07/20 11/07/20 11/07/20 00:00 08:30 08:35 Temperature 37.0 C 36.8 C Heart Rate Heart Rate [ 75 92 Brachial] Respiratory 22 24 Rate Blood Pressure 137/56 H [Left Brachial artery] Blood Pressure 144/70 H [Right Brachial artery] O2 Saturation 94 80 L 86 L 11/07/20 08:41 Temperature Heart Rate Heart Rate [ Brachial] Respiratory Rate Blood Pressure [Left Brachial artery] Blood Pressure [Right Brachial artery] O2 Saturation 89 L Oxygen O2 Source Oxymizer Oxygen Flow Rate 4 I&O (Last 24 Hrs): Intake and Output Totals x24h 11/05/20 11/06/20 11/07/20 23:59 23:59 23:59 Intake Total 2921.417 1524 220 Output Total 1000 300 Balance 2921.417 524 -80 General: Alert, No acute distress HEENT: Atraumatic, Mucous membr. moist/pink, Other (wearing oximizer O2) Neck: Supple, No JVD Neuro: Alert, Disoriented, Other (speech starts out normal then becomes jibberish) Cardiovascular: No murmurs Respiratory: Rhonchi, Other (clear anteriorly) Abdomen: Soft Extremities: No edema (except 2+ edema of fingers) - Results Results: Laboratory Results WBC 7.6 x10^3/uL (4.8-10.8) 11/07/20 07:35 RBC 3.08 10^6/uL (4.70-6.10) L 11/07/20 07:35 Hgb 10.0 g/dL (14.0-18.0) L 11/07/20 07:35 Hct 31.7 % (42.0-52.0) L 11/07/20 07:35 MCV 102.9 fL (80.0-94.0) H 11/07/20 07:35 MCH 32.5 pg (27.0-31.0) H 11/07/20 07:35 MCHC 31.5 g/dL (32.0-36.0) L 11/07/20 07:35 RDW 13.9 % (12.0-15.0) 11/07/20 07:35 Plt Count 173 10^3/uL (130-450) 11/07/20 07:35 MPV 9.5 fL (7.4-11.4) 11/07/20 07:35 Neut # (Auto) 6.1 10^3/uL (1.5-6.6) 11/07/20 07:35 Lymph # (Auto) 0.4 10^3/uL (1.5-3.5) L 11/07/20 07:35 [place] # (Auto) 0.6 10^3/uL (0.0-1.0) 11/07/20 07:35 Eos # (Auto) 0.4 10^3/uL (0.0-0.7) 11/07/20 07:35 Baso # (Auto) 0.0 10^3/uL (0.0-0.1) 11/07/20 07:35 Absolute Nucleated RBC 0.00 x10^3/uL 11/07/20 07:35 Nucleated RBC % 0.0 /100WBC 11/07/20 07:35 Bld Gas Analysis Time 0930 11/05/20 09:25 Sample Site LEFT RADIAL 11/05/20 09:25 ABG pH 7.41 (7.35-7.45) 11/05/20 09:25 ABG pCO2 35 mmHg (34-45) 11/05/20 09:25 ABG pO2 51 mmHg (80-100) L* 11/05/20 09:25 ABG HCO3 21.8 mmol/L (22.0-26.0) L 11/05/20 09:25 ABG Total CO2 22.8 MMOL/L (21.0-29.0) 11/05/20 09:25 ABG O2 Saturation 86 % (94-98) L* 11/05/20 09:25 ABG Base Excess -2.3 mmol/L (-2.0-3.0) L 11/05/20 09:25 Ender Test POSITIVE 11/05/20 09:25 O2 Delivery Device OXYMIZER 11/05/20 09:25 O2 Liters/Min 12.00 LPM 11/05/20 09:25 Sodium 148 mmol/L (135-145) H 11/07/20 07:35 Potassium 3.2 mmol/L (3.5-5.0) L 11/07/20 07:35 Chloride 113 mmol/L (101-111) H 11/07/20 07:35 Carbon Dioxide 25 mmol/L (21-32) 11/07/20 07:35 Anion Gap 10.0 (6-13) 11/07/20 07:35 BUN 32 mg/dL (6-20) H 11/07/20 07:35 Creatinine 0.9 mg/dL (0.6-1.2) 11/07/20 07:35 Estimated GFR (MDRD) 81 (>89) L 11/07/20 07:35 Glucose 106 mg/dL (70-100) H 11/07/20 07:35 Lactic Acid 1.0 mmol/L (0.5-2.2) 11/03/20 02:42 Calcium 8.2 mg/dL (8.5-10.3) L 11/07/20 07:35 Magnesium 2.1 mg/dL (1.7-2.8) 11/06/20 04:00 Iron 19 ug/dL (45-182) L 11/05/20 04:03 TIBC 227 ug/dL (250-450) L 11/05/20 04:03 % Saturation 8 % (20-50) L 11/05/20 04:03 Transferrin 162 mg/dL (180-329) L 11/05/20 04:03 Total Bilirubin 1.7 mg/dL (0.2-1.0) H 11/03/20 02:42 AST 23 IU/L (10-42) 11/03/20 02:42 ALT < 10 IU/L (10-60) L 11/03/20 02:42 Alkaline Phosphatase 83 IU/L (42-121) 11/03/20 02:42 Troponin I High Sens 19.0 ng/L (2.3-19.7) 11/06/20 04:00 B-Natriuretic Peptide 826 pg/mL (5-100) H 11/07/20 07:35 Total Protein 7.2 g/dL (6.7-8.2) 11/03/20 02:42 Albumin 3.7 g/dL (3.2-5.5) 11/03/20 02:42 Globulin 3.5 g/dL (2.1-4.2) 11/03/20 02:42 Albumin/Globulin Ratio 1.1 (1.0-2.2) 11/03/20 02:42 Lipase 20 U/L (22-51) L 11/03/20 02:42 Vitamin B12 329 pg/mL (180-914) 11/05/20 04:03 Folate 16.23 ng/mL (5.90 - >24.8) 11/05/20 04:03 Urine Color DARK YELLOW 11/03/20 06:55 Urine Clarity CLEAR (CLEAR) 11/03/20 06:55 Urine pH 5.5 PH (5.0-7.5) 11/03/20 06:55 Ur Specific [place] 1.015 (1.002-1.030) 11/03/20 06:55 Urine Protein 30 mg/dL (NEGATIVE) H 11/03/20 06:55 Urine Glucose (UA) NEGATIVE mg/dL (NEGATIVE) 11/03/20 06:55 Urine Ketones NEGATIVE mg/dL (NEGATIVE) 11/03/20 06:55 Urine Occult Blood NEGATIVE (NEGATIVE) 11/03/20 06:55 Urine Nitrite POSITIVE (NEGATIVE) H 11/03/20 06:55 Urine Bilirubin NEGATIVE (NEGATIVE) 11/03/20 06:55 Urine Urobilinogen 1 (NORMAL) E.U./dL (NORMAL) 11/03/20 06:55 Ur Leukocyte Esterase NEGATIVE (NEGATIVE) 11/03/20 06:55 Urine RBC 0-5 /HPF (0-5) 11/03/20 06:55 Urine WBC 0-3 /HPF (0-3) 11/03/20 06:55 Ur Squamous Epith Cells FEW Squamous (<= Few) 11/03/20 06:55 Urine Bacteria Few /HPF (None Seen) 11/03/20 06:55 Urine Mucus Few Strands 11/03/20 06:55 Ur Microscopic Review INDICATED 11/03/20 06:55 Urine Culture Comments INDICATED 11/03/20 06:55 Nasal Adenovirus (PCR) NOT DETECTED 11/03/20 05:56 Nasal B. parapertussis DNA (PCR) NOT DETECTED 11/03/20 05:56 Nasal Coronavir 229E PCR NOT DETECTED 11/03/20 05:56 Nasal Coronavir HKU1 PCR NOT DETECTED 11/03/20 05:56 Nasal Coronavir NL63 PCR NOT DETECTED 11/03/20 05:56 Nasal Coronavir OC43 PCR NOT DETECTED 11/03/20 05:56 Nasal Enterovir/Rhinovir PCR NOT DETECTED 11/03/20 05:56 Nasal Influenza B PCR NOT DETECTED 11/03/20 05:56 Nasal Influenza A PCR NOT DETECTED 11/03/20 05:56 Nasal Parainfluen 1 PCR NOT DETECTED 11/03/20 05:56 Nasal Parainfluen 2 PCR NOT DETECTED 11/03/20 05:56 Nasal Parainfluen 3 PCR NOT DETECTED 11/03/20 05:56 Nasal Parainfluen 4 PCR NOT DETECTED 11/03/20 05:56 Nasal RSV (PCR) NOT DETECTED 11/03/20 05:56 Nasal B.pertussis DNA PCR NOT DETECTED 11/03/20 05:56 Nasal C.pneumoniae (PCR) NOT DETECTED 11/03/20 05:56 Kenneth Human Metapneumo PCR NOT DETECTED 11/03/20 05:56 Nasal M.pneumoniae (PCR) NOT DETECTED 11/03/20 05:56 Nasal SARS-CoV-2 (PCR) NOT DETECTED 11/03/20 05:56 Last Dose Date 11/05/20 11/06/20 04:00 Last Dose Time 08:30 11/06/20 04:00 Digoxin 0.3 ng/mL 11/06/20 04:00
[2020-11-07] MEDS: MIRABEGRON 25 MG PO SCH (11:08)
[2020-11-07] MEDS: LACTOBACILLUS RHAMNOSUS GG CAPSULE PO SCH (11:10)
[2020-11-07] MEDS ORDERED: DEXTROSE 5% 1,000 ML IV SCH (11:15)
[2020-11-07] MEDS: FERROUS SULFATE 300 MG/5 ML UDC PO SCH (11:30)
[2020-11-07] MEDS: FUROSEMIDE 20 MG TABLET PO SCH (11:30)
[2020-11-07] MEDS: POTASSIUM CHLOR 10 MEQ/100 ML 10 MEQ/100 ML BAG IV SCH ×4 (16:29→19:45)
[2020-11-07] MEDS: MIRTAZAPINE 15 MG TABLET PO SCH (21:58)
[2020-11-07] MEDS: QUEtiapine 25 MG TABLET PO SCH (21:58)
[2020-11-07] MEDS: MONTELUKAST 10 MG TABLET PO SCH (21:58)
[2020-11-08] MEDS: SODIUM CHLORIDE FLUSH 0.9% 10 ML SYRINGE IVP SCH ×4 (01:20→23:51)
[2020-11-08] MEDS: metroNIDAZOLE 500 MG/100 ML 500 MG/100 ML BAG IV SCH ×3 (04:12→19:19)
[2020-11-08] MEDS: IPRATROPIUM/ALBUTEROL 3 ML NEB INH PRN ×2 (07:25→20:14)
[2020-11-08] MEDS: BUDESONIDE 0.5 MG/2 ML NEB INH SCH ×2 (07:25→20:14)
[2020-11-08 07:26] LABS: BASOPHILS % (AUTO) 0.5 %; EOSINOPHILS # (AUTO) 0.5 10^3/uL (0.0-0.7); EOSINOPHILS % (AUTO) 6.9 %; HCT - HEMATOCRIT 30.6 % (42.0-52.0); HGB - HEMOGLOBIN 9.9 g/dL (14.0-18.0); LYMPHOCYTES # (AUTO) 0.5 10^3/uL (1.5-3.5); LYMPHOCYTES % (AUTO) 6.8 %; MEAN CORPUSCULAR HEMOGLOBIN 32.8 pg (27.0-31.0); MEAN CORPUSCULAR HGB CONC 32.4 g/dL (32.0-36.0); MEAN CORPUSCULAR VOLUME 101.3 fL (80.0-94.0); MEAN PLATELET VOLUME 9.8 fL (7.4-11.4); MONOCYTES # (AUTO) 0.6 10^3/uL (0.0-1.0); MONOCYTES % (AUTO) 7.6 %; NEUTROPHILS % (AUTO) 77.7 %; PLT - PLATELET COUNT 184 10^3/uL (130-450); RED BLOOD COUNT 3.02 10^6/uL (4.70-6.10); RED CELL DISTRIBUTION WIDTH 13.8 % (12.0-15.0); WHITE BLOOD COUNT 7.7 x10^3/uL (4.8-10.8)
[2020-11-08 07:36] LABS: CALCIUM 8.4 mg/dL (8.5-10.3); CREATININE 0.9 mg/dL (0.6-1.2); POTASSIUM 3.3 mmol/L (3.5-5.0)
[2020-11-08] MEDS: CEFEPIME 2 GM in SODIUM CHLORIDE 0.9% MINIBAG 100 ML IV SCH ×2 (09:01→20:45)
[2020-11-08] MEDS: MAGNESIUM OXIDE 400 MG TABLET PO SCH (09:03)
[2020-11-08] MEDS: DIGOXIN 125 MCG TABLET PO SCH (09:03)
[2020-11-08] MEDS: FAMOTIDINE 20 MG TABLET PO SCH ×2 (09:04→20:38)
[2020-11-08] MEDS: CARBIDOPA/LEVODOPA 25 MG/100 MG TABLET PO SCH ×4 (09:04→20:38)
[2020-11-08] MEDS: FLUDROCORTISONE 0.1 MG TABLET PO SCH (09:04)
[2020-11-08] MEDS: LACTOBACILLUS RHAMNOSUS GG CAPSULE PO SCH (09:04)
[2020-11-08] MEDS: diltiaZEM CD 120 MG CAPSULE PO SCH (09:04)
[2020-11-08] MEDS: DONEPEZIL 5 MG TABLET PO SCH (09:04)
[2020-11-08] MEDS: FUROSEMIDE 20 MG TABLET PO SCH (09:04)
[2020-11-08] MEDS: guaiFENesin 600 MG TABLET PO SCH ×2 (09:04→20:39)
[2020-11-08] MEDS: polyethylene glycoL 3350 17 GM PACKET PO SCH (09:05)
[2020-11-08] MEDS: MIRABEGRON 25 MG PO SCH (09:05)
[2020-11-08] MEDS: SENNA 8.6 MG TABLET PO SCH (09:05)
[2020-11-08] MEDS: DOCUSATE SODIUM 250 MG CAPSULE PO SCH (09:05)
--- NOTE | 2020-11-08 09:54 | PROVIDER PROGRESS NOTE ---
Assessment/Plan - Problem List (1) Acute respiratory failure with hypoxia Assessment/Plan: Today his oxygen needs are slightly improved, not as high as 12 L, now he is on 5 to 7 L of supplemental oxygen. Continue to treat the underlying problem: COPD, pneumonia, CHF. I updated the by phone today. (2) CAP (community acquired pneumonia) Assessment/Plan: New with empiric treatment. Continue with Mucinex for pulmonary toilet. Supplemental oxygen as needed to keep sats > 86%. (3) Cor pulmonale Assessment/Plan: This was new Dx made by Echo done this admission. His interventricular septum is so flattened, that it is functioning as if he has LV diastolic dysfunction. BNP was 800's at admission>> 900's, but he received iv hydration for several days. The BNP is down to 800's again today. His iv fluids were stopped and giving daily Lasix po, due to the continued CHF on XRay and edema of fingers and hands. The cause appears to be COPD (seen on chest imaging, with Hx of smoking), therefore the saturation target for him will be 86%. Continue nebs, pulmonary toilet with Mucinex and Pulmicort neb was started. A formal swallowing eval with Speech Therapy was ordered, to eval for chronic aspiration. He could not participate on Fri (after getting Morphine for dyspnea and was too sleepy), and Speech is only here M-F (today is Sun). Will try to get him more upright, and ordered OOB in a chair at least daily. (4) Fracture of superior pubic ramus Qualifiers: Encounter type: subsequent encounter Fracture type: closed Laterality: left Fracture healing: with nonunion Qualified Code(s): S32.512K - Fracture of superior rim of left pubis, subsequent encounter for fracture with nonunion Assessment/Plan: PT and pain meds prn are ordered. He was able to walk without pain, 3-4 steps yesterday using a walker, per PT. (5) Lewy body dementia Qualifiers: Dementia behavioral disturbance: with behavioral disturbance Qualified Code(s): G31.83 - Dementia with Lewy bodies; F02.81 - Dementia in other diseases classified elsewhere with behavioral disturbance Assessment/Plan: His described to me by phone that he usually has different problems daily; some days it is his speech, some days he cannot recognize her, some days it affects his bowels (constipation). He is very sensitive to anesthetics, sedatives and narcotics, the told me, and that is why those broad categories are listed as Adverse Reactions on his allergy list. The told the [facility] that Seroquel works when he is agitated, and this has been ordered as a scheduled med at now. With that, he has had good rest at nights and is more alert this morning. Continue home Aricept. I gave the update on his entire condition today. I asked for BUSINESS PRACTICES SUPERVISOR to engage him in discussions when he is awake. The was also be calling him today and he was conversing, leaving his oximizer on. (6) Frequent falls Assessment/Plan: As per hx. This was likely related to orthostatic hypotension and Lewy Body Dementia/Parkinsonian symptoms. PT started working with him. There are parts of the day when he is cue-able and not agitated and confused and cooperates with PT. PT has recommended physical therapy after DCh. (7) Orthostatic hypotension Assessment/Plan: As per Hx. His home dose of Flurinef 0.2 mg was continued, but was decreased to 0.1 mg, due to recurrent Hypernatremia. (8) Hypokalemia Assessment/Plan: Related to diuresis, poor po intake here, and use of Flurinef, which promotes K loss. Will replace K with iv riders. Follow BMP daily. (9) Chronic a-fib Assessment/Plan: His HR is controlled on current meds. The Dig level remains non-toxic at 0.3, it was 0.5 at admission. No telemetry ordered, so as not to fidget with leads, due to his dementia. He is not a candidate for aspirin or anticoagulant due to frequent falls Hx. (10) Iron deficiency anemia Assessment/Plan: Oral liquid iron replacement was started several days ago. Guaiac of the stool has come back negative. (11) Hypernatremia Assessment/Plan: Resolved with decreasing the Flurinef dose and he got 500cc of free water (D5 iv ). - Current Meds Current Meds: Current Medications Generic Name Dose Route Start Last Admin Trade Name Freq PRN Reason Stop Dose Admin Acetaminophen 650 mg 11/03/20 08:18 11/06/20 12:42 Acetaminophen 325 Mg Tablet PO 650 mg Q4HR PRN Administration Pain or Fever > 38C (100.4F) Albuterol/Ipratropium 3 ml 11/04/20 12:30 11/08/20 07:25 Ipratropium/Albuterol 3 Ml Neb INH 3 ml RTQID PRN Administration Shortness of Air/Wheezing Budesonide 0.5 mg 11/06/20 12:18 11/08/20 07:25 Budesonide 0.5 Mg/2 Ml Neb INH 0.5 mg RTBID YANELY Administration Carbidopa/Levodopa 1 tab 11/03/20 17:00 11/08/20 09:04 Carbidopa/Levodopa 25 Mg/100 Mg Tablet PO 1 tab QID YANELY Administration Digoxin 125 mcg 11/04/20 09:00 11/08/20 09:03 Digoxin 125 Mcg Tablet PO 125 mcg DAILY YANELY Administration Diltiazem HCl 120 mg 11/04/20 09:00 11/08/20 09:04 Diltiazem Cd 120 Mg Capsule PO 120 mg DAILY YANELY Administration Docusate Sodium 250 - 500 mg 11/05/20 09:00 11/08/20 09:05 Docusate Sodium 250 Mg Capsule PO 250 mg DAILY YANELY Administration Donepezil HCl 10 mg 11/04/20 09:00 11/08/20 09:04 Donepezil 5 Mg Tablet PO 10 mg DAILY YANELY Administration Famotidine 20 mg 11/03/20 21:00 11/08/20 09:04 Famotidine 20 Mg Tablet PO 20 mg BID YANELY Administration Ferrous Sulfate 300 mg 11/05/20 11:00 11/07/20 11:30 Ferrous Sulfate 300 Mg/5 Ml Udc PO 300 mg 1100 YANELY Administration Fludrocortisone Acetate 0.1 mg 11/08/20 09:00 11/08/20 09:04 Fludrocortisone 0.1 Mg Tablet PO 0.1 mg DAILY YANELY Administration Furosemide 20 mg 11/07/20 11:00 11/08/20 09:04 Furosemide 20 Mg Tablet PO 20 mg DAILY YANELY Administration Guaifenesin 600 mg 11/04/20 21:00 11/08/20 09:04 Guaifenesin 600 Mg Tablet PO 600 mg BID YANELY Administration Cefepime HCl 2 gm/ Sodium 100 mls @ 200 mls/hr 11/06/20 21:00 11/08/20 09:31 Chloride IV Infused BID YANELY Infusion Metronidazole 500 mg in 100 mls @ 100 mls/hr 11/06/20 12:00 11/08/20 05:12 Flagyl 500 Mg/100 Ml IV Infused Q8H YANELY Infusion Lactobacillus Rhamnosus 1 cap 11/04/20 12:32 11/08/20 09:04 Lactobacillus Rhamnosus Gg Capsule PO 1 cap DAILY YANEYL Administration Magnesium Oxide 400 mg 11/04/20 08:00 11/08/20 09:03 Magnesium Oxide 400 Mg Tablet PO 400 mg DAILYWM YANELY Administration Mirtazapine 30 mg 11/03/20 21:00 11/07/20 21:58 Mirtazapine 15 Mg Tablet PO 30 mg QPM YANELY Administration Montelukast Sodium 10 mg 11/04/20 21:00 11/07/20 21:58 Montelukast 10 Mg Tablet PO 10 mg QPM YANELY Administration Patient Own Med - 1 each 11/07/20 09:00 11/08/20 09:05 Mirabegron Er [ PO Not Given Myrbetriq Er] 25 Mg DAILY YANELY Tabs Polyethylene Glycol 17 gm 11/04/20 09:00 11/08/20 09:05 Polyethylene Glycol 3350 17 Gm Packet PO 17 gm DAILY YANELY Administration Quetiapine Fumarate 12.5 mg 11/05/20 21:00 11/07/20 21:58 Quetiapine 25 Mg Tablet PO 12.5 mg QPM YANELY Administration Senna 8.6 - 17.2 mg 11/05/20 09:00 11/08/20 09:05 Senna 8.6 Mg Tablet PO 8.6 mg DAILY YANELY Administration Sodium Chloride 10 ml 11/03/20 09:00 11/08/20 09:05 Sodium Chloride Flush 0.9% 10 Ml Syringe IVP Not Given 0100,0900,1700 YANELY - Lab Result Fish Bone Diagrams: 11/08/20 06:54 11/08/20 06:54 - Additional Planning My Orders: My Active Orders 11/07/20 09:00 Patient Own Med [Patient Own Medication] 1 each PO DAILY 11/07/20 11:00 Furosemide [Lasix] 20 mg PO DAILY 11/08/20 07:37 Shower [RC] PRN 11/08/20 08:00 Potassium Chlor 10 Meq/100 ml [Potassium Chloride] 10 meq in 100 ml IV Q1H 11/08/20 09:00 Fludrocortisone [Florinef] 0.1 mg PO DAILY Objective Vital Signs: Vital Signs - 24 hr 11/07/20 11/07/20 11/07/20 15:43 15:57 19:25 Temperature 37 C Heart Rate 74 Heart Rate [ 99 Brachial] Respiratory 22 26 H Rate Blood Pressure 138/90 H [Right Brachial artery] O2 Saturation 81 L 92 11/08/20 11/08/20 00:00 08:08 Temperature 37 C 37 C Heart Rate Heart Rate [ 85 106 H Brachial] Respiratory 18 22 Rate Blood Pressure 127/84 H 128/85 H [Right Brachial artery] O2 Saturation 96 94 Oxygen O2 Source Oxymizer Oxygen Flow Rate 4 I&O (Last 24 Hrs): Intake and Output Totals x24h 11/06/20 11/07/20 11/08/20 23:59 23:59 23:59 Intake Total 1524 2850 1167 Output Total 1000 674 250 Balance 524 2176 917 General: Alert HEENT: Mucous membr. moist/pink, Other (Wearing oximizer) Neck: Supple, No JVD Neuro: Alert, Disoriented Cardiovascular: Regular rate Respiratory: Breath sounds nml (anteriorly) Abdomen: Soft Extremities: No edema (except of fingers) - Results Results: Laboratory Results WBC 7.7 x10^3/uL (4.8-10.8) 11/08/20 06:54 RBC 3.02 10^6/uL (4.70-6.10) L 11/08/20 06:54 Hgb 9.9 g/dL (14.0-18.0) L 11/08/20 06:54 Hct 30.6 % (42.0-52.0) L 11/08/20 06:54 MCV 101.3 fL (80.0-94.0) H 11/08/20 06:54 MCH 32.8 pg (27.0-31.0) H 11/08/20 06:54 MCHC 32.4 g/dL (32.0-36.0) 11/08/20 06:54 RDW 13.8 % (12.0-15.0) 11/08/20 06:54 Plt Count 184 10^3/uL (130-450) 11/08/20 06:54 MPV 9.8 fL (7.4-11.4) 11/08/20 06:54 Neut # (Auto) 6.0 10^3/uL (1.5-6.6) 11/08/20 06:54 Lymph # (Auto) 0.5 10^3/uL (1.5-3.5) L 11/08/20 06:54 [place] # (Auto) 0.6 10^3/uL (0.0-1.0) 11/08/20 06:54 Eos # (Auto) 0.5 10^3/uL (0.0-0.7) 11/08/20 06:54 Baso # (Auto) 0.0 10^3/uL (0.0-0.1) 11/08/20 06:54 Absolute Nucleated RBC 0.00 x10^3/uL 11/08/20 06:54 Nucleated RBC % 0.0 /100WBC 11/08/20 06:54 Bld Gas Analysis Time 0930 11/05/20 09:25 Sample Site LEFT RADIAL 11/05/20 09:25 ABG pH 7.41 (7.35-7.45) 11/05/20 09:25 ABG pCO2 35 mmHg (34-45) 11/05/20 09:25 ABG pO2 51 mmHg (80-100) L* 11/05/20 09:25 ABG HCO3 21.8 mmol/L (22.0-26.0) L 11/05/20 09:25 ABG Total CO2 22.8 MMOL/L (21.0-29.0) 11/05/20 09:25 ABG O2 Saturation 86 % (94-98) L* 11/05/20 09:25 ABG Base Excess -2.3 mmol/L (-2.0-3.0) L 11/05/20 09:25 Ender Test POSITIVE 11/05/20 09:25 O2 Delivery Device OXYMIZER 11/05/20 09:25 O2 Liters/Min 12.00 LPM 11/05/20 09:25 Sodium 143 mmol/L (135-145) 11/08/20 06:54 Potassium 3.3 mmol/L (3.5-5.0) L 11/08/20 06:54 Chloride 110 mmol/L (101-111) 11/08/20 06:54 Carbon Dioxide 24 mmol/L (21-32) 11/08/20 06:54 Anion Gap 9.0 (6-13) 11/08/20 06:54 BUN 32 mg/dL (6-20) H 11/08/20 06:54 Creatinine 0.9 mg/dL (0.6-1.2) 11/08/20 06:54 Estimated GFR (MDRD) 81 (>89) L 11/08/20 06:54 Glucose 107 mg/dL (70-100) H 11/08/20 06:54 Lactic Acid 1.0 mmol/L (0.5-2.2) 11/03/20 02:42 Calcium 8.4 mg/dL (8.5-10.3) L 11/08/20 06:54 Magnesium 2.1 mg/dL (1.7-2.8) 11/06/20 04:00 Iron 19 ug/dL (45-182) L 11/05/20 04:03 TIBC 227 ug/dL (250-450) L 11/05/20 04:03 % Saturation 8 % (20-50) L 11/05/20 04:03 Transferrin 162 mg/dL (180-329) L 11/05/20 04:03 Total Bilirubin 1.7 mg/dL (0.2-1.0) H 11/03/20 02:42 AST 23 IU/L (10-42) 11/03/20 02:42 ALT < 10 IU/L (10-60) L 11/03/20 02:42 Alkaline Phosphatase 83 IU/L (42-121) 11/03/20 02:42 Troponin I High Sens 19.0 ng/L (2.3-19.7) 11/06/20 04:00 B-Natriuretic Peptide 826 pg/mL (5-100) H 11/07/20 07:35 Total Protein 7.2 g/dL (6.7-8.2) 11/03/20 02:42 Albumin 3.7 g/dL (3.2-5.5) 11/03/20 02:42 Globulin 3.5 g/dL (2.1-4.2) 11/03/20 02:42 Albumin/Globulin Ratio 1.1 (1.0-2.2) 11/03/20 02:42 Lipase 20 U/L (22-51) L 11/03/20 02:42 Vitamin B12 329 pg/mL (180-914) 11/05/20 04:03 Folate 16.23 ng/mL (5.90 - >24.8) 11/05/20 04:03 Urine Color DARK YELLOW 11/03/20 06:55 Urine Clarity CLEAR (CLEAR) 11/03/20 06:55 Urine pH 5.5 PH (5.0-7.5) 11/03/20 06:55 Ur Specific [place] 1.015 (1.002-1.030) 11/03/20 06:55 Urine Protein 30 mg/dL (NEGATIVE) H 11/03/20 06:55 Urine Glucose (UA) NEGATIVE mg/dL (NEGATIVE) 11/03/20 06:55 Urine Ketones NEGATIVE mg/dL (NEGATIVE) 11/03/20 06:55 Urine Occult Blood NEGATIVE (NEGATIVE) 11/03/20 06:55 Urine Nitrite POSITIVE (NEGATIVE) H 11/03/20 06:55 Urine Bilirubin NEGATIVE (NEGATIVE) 11/03/20 06:55 Urine Urobilinogen 1 (NORMAL) E.U./dL (NORMAL) 11/03/20 06:55 Ur Leukocyte Esterase NEGATIVE (NEGATIVE) 11/03/20 06:55 Urine RBC 0-5 /HPF (0-5) 11/03/20 06:55 Urine WBC 0-3 /HPF (0-3) 11/03/20 06:55 Ur Squamous Epith Cells FEW Squamous (<= Few) 11/03/20 06:55 Urine Bacteria Few /HPF (None Seen) 11/03/20 06:55 Urine Mucus Few Strands 11/03/20 06:55 Ur Microscopic Review INDICATED 11/03/20 06:55 Urine Culture Comments INDICATED 11/03/20 06:55 Nasal Adenovirus (PCR) NOT DETECTED 11/03/20 05:56 Nasal B. parapertussis DNA (PCR) NOT DETECTED 11/03/20 05:56 Nasal Coronavir 229E PCR NOT DETECTED 11/03/20 05:56 Nasal Coronavir HKU1 PCR NOT DETECTED 11/03/20 05:56 Nasal Coronavir NL63 PCR NOT DETECTED 11/03/20 05:56 Nasal Coronavir OC43 PCR NOT DETECTED 11/03/20 05:56 Nasal Enterovir/Rhinovir PCR NOT DETECTED 11/03/20 05:56 Nasal Influenza B PCR NOT DETECTED 11/03/20 05:56 Nasal Influenza A PCR NOT DETECTED 11/03/20 05:56 Nasal Parainfluen 1 PCR NOT DETECTED 11/03/20 05:56 Nasal Parainfluen 2 PCR NOT DETECTED 11/03/20 05:56 Nasal Parainfluen 3 PCR NOT DETECTED 11/03/20 05:56 Nasal Parainfluen 4 PCR NOT DETECTED 11/03/20 05:56 Nasal RSV (PCR) NOT DETECTED 11/03/20 05:56 Nasal B.pertussis DNA PCR NOT DETECTED 11/03/20 05:56 Nasal C.pneumoniae (PCR) NOT DETECTED 11/03/20 05:56 Kenneth Human Metapneumo PCR NOT DETECTED 11/03/20 05:56 Nasal M.pneumoniae (PCR) NOT DETECTED 11/03/20 05:56 Nasal SARS-CoV-2 (PCR) NOT DETECTED 11/03/20 05:56 Last Dose Date 11/05/20 11/06/20 04:00 Last Dose Time 08:30 11/06/20 04:00 Digoxin 0.3 ng/mL 11/06/20 04:00
[2020-11-08] MEDS: POTASSIUM CHLOR 10 MEQ/100 ML 10 MEQ/100 ML BAG IV SCH ×4 (10:19→14:20)
[2020-11-08] MEDS: FERROUS SULFATE 300 MG/5 ML UDC PO SCH (10:20)
[2020-11-08] MEDS: ACETAMINOPHEN 325 MG TABLET PO PRN (20:38)
[2020-11-08] MEDS: MONTELUKAST 10 MG TABLET PO SCH (20:38)
[2020-11-08] MEDS: MIRTAZAPINE 15 MG TABLET PO SCH (20:39)
[2020-11-08] MEDS: QUEtiapine 25 MG TABLET PO SCH (20:39)
[2020-11-09] MEDS ORDERED: FUROSEMIDE 40 MG/4 ML VIAL IVP STA (00:29)
[2020-11-09] MEDS ORDERED: diltiaZEM INJ 5 MG/ML VIAL IVP ONE (00:30)
--- NOTE | 2020-11-09 01:01 | PROVIDER PROGRESS NOTE ---
Boilermaker Pipe Fitter Note - Boilermaker Pipe Fitter Note Boilermaker Pipe Fitter Note: I was notified by the patient's nurse and respiratory therapy that the patient has had an increase in his oxygen requirements. He is previously down to 6 to 7 L of oxygen with saturations in the mid 90s. He is now requiring 12 L of oxygen via oxygen mask to maintain a saturation of about 88%. I did evaluate the patient and history is limited given his dementia. He does appear tachypneic but not in distress. I did review his prior records and he had a CT angiogram on admission which showed no pulmonary embolism but significant bilateral opacities. Repeat x-ray on continue to show bilateral opacities. His echocardiogram was suggestive of cor pulmonale. I ordered a repeat x-ray today which does appears worse compared to prior imaging. He still has significant bilateral opacities which could be pneumonia or ARDS. I did order 40 mg of Lasix IV to be administered given his BNP has been elevated and he had this worsening hypoxia. I also added vancomycin in addition to the cefepime and Flagyl the patient has already been receiving. I did speak with the patient's spouse and Gladis VASQUEZ, to update her on the patient's decline in his condition. I discussed with her regarding mechanical ventilation as it was previously noted that the patient would not want to be intubated but was okay with CPR. I also discussed with her regarding what entails of CPR. I informed her that this results in multiple broken ribs and patients will need to be lizette jose alberto on mechanical ventilation if return of spontaneous circulation is achieved. She states that the patient definitely would not want mechanical ventilation and at this point in time, she would also like to make him a DNR. I did inform her that I am quite concerned regarding his deterioration and if we cannot intubate him, our options will be limited if his hypoxia persists. We could trial BiPAP but I am concerned he would not tolerate it due to his dementia as he gets easily agitated. She also felt that he likely would not tolerate this. I told her that we will watch him closely and hope that with the diuresis, his hypoxia will improve or at least stabilize. I informed her that if he continues to decline, I will update her further. We discussed that if his condition significantly declines, we could transition him to comfort care and she was potentially open to this. I did ask if she had any more questions and she declined. She thanked me for calling her and updating her on the patient's condition.
[2020-11-09] MEDS: SODIUM CHLORIDE FLUSH 0.9% 10 ML SYRINGE IVP PRN ×2 (01:07→02:57)
[2020-11-09] MEDS ORDERED: VANCOMYCIN INJ 1.5 GM in SODIUM CHLORIDE 0.9% 500 ML IV SCH ×2 (03:00→17:51)
[2020-11-09] MEDS: metroNIDAZOLE 500 MG/100 ML 500 MG/100 ML BAG IV SCH ×3 (04:52→19:49)
[2020-11-09] MEDS: IPRATROPIUM/ALBUTEROL 3 ML NEB INH PRN ×2 (07:18→20:47)
[2020-11-09] MEDS: BUDESONIDE 0.5 MG/2 ML NEB INH SCH ×2 (07:18→20:47)
[2020-11-09 07:44] LABS: BASOPHILS % (AUTO) 0.5 %; EOSINOPHILS # (AUTO) 0.5 10^3/uL (0.0-0.7); EOSINOPHILS % (AUTO) 6.1 %; HCT - HEMATOCRIT 32.7 % (42.0-52.0); HGB - HEMOGLOBIN 10.5 g/dL (14.0-18.0); LYMPHOCYTES # (AUTO) 0.5 10^3/uL (1.5-3.5); LYMPHOCYTES % (AUTO) 5.8 %; MEAN CORPUSCULAR HEMOGLOBIN 32.5 pg (27.0-31.0); MEAN CORPUSCULAR HGB CONC 32.1 g/dL (32.0-36.0); MEAN CORPUSCULAR VOLUME 101.2 fL (80.0-94.0); MEAN PLATELET VOLUME 9.8 fL (7.4-11.4); MONOCYTES # (AUTO) 0.7 10^3/uL (0.0-1.0); MONOCYTES % (AUTO) 7.9 %; PLT - PLATELET COUNT 209 10^3/uL (130-450); RED BLOOD COUNT 3.23 10^6/uL (4.70-6.10); RED CELL DISTRIBUTION WIDTH 13.6 % (12.0-15.0); WHITE BLOOD COUNT 8.8 x10^3/uL (4.8-10.8)
[2020-11-09 07:51] LABS: CREATININE 1.1 mg/dL (0.6-1.2); POTASSIUM 3.2 mmol/L (3.5-5.0)
[2020-11-09] MEDS: MAGNESIUM OXIDE 400 MG TABLET PO SCH (09:08)
[2020-11-09] MEDS: LACTOBACILLUS RHAMNOSUS GG CAPSULE PO SCH (09:08)
[2020-11-09] MEDS: FAMOTIDINE 20 MG TABLET PO SCH ×2 (09:08→21:36)
[2020-11-09] MEDS: FLUDROCORTISONE 0.1 MG TABLET PO SCH (09:08)
[2020-11-09] MEDS: CARBIDOPA/LEVODOPA 25 MG/100 MG TABLET PO SCH ×4 (09:08→21:36)
[2020-11-09] MEDS: SENNA 8.6 MG TABLET PO SCH (09:09)
[2020-11-09] MEDS: FUROSEMIDE 20 MG TABLET PO SCH (09:09)
[2020-11-09] MEDS: guaiFENesin 600 MG TABLET PO SCH ×2 (09:09→21:36)
[2020-11-09] MEDS: DIGOXIN 125 MCG TABLET PO SCH (09:09)
[2020-11-09] MEDS: diltiaZEM CD 120 MG CAPSULE PO SCH (09:09)
[2020-11-09] MEDS: DONEPEZIL 5 MG TABLET PO SCH (09:09)
[2020-11-09] MEDS: CEFEPIME 2 GM in SODIUM CHLORIDE 0.9% MINIBAG 100 ML IV SCH ×2 (09:10→21:22)
[2020-11-09] MEDS: DOCUSATE SODIUM 250 MG CAPSULE PO SCH (09:10)
[2020-11-09] MEDS: ACETAMINOPHEN 325 MG TABLET PO PRN ×2 (09:10→19:39)
[2020-11-09] MEDS: polyethylene glycoL 3350 17 GM PACKET PO SCH (09:11)
[2020-11-09] MEDS: SODIUM CHLORIDE FLUSH 0.9% 10 ML SYRINGE IVP SCH ×2 (09:11→17:22)
[2020-11-09] MEDS: MIRABEGRON 25 MG PO SCH (09:11)
--- NOTE | 2020-11-09 09:35 | XRAY Report ---
PROCEDURE: Chest 1 View X-Ray INDICATIONS: Worsening hypoxia. TECHNIQUE: One view of the chest was acquired. COMPARISON: Chest x-ray 11/05/2020 FINDINGS: Surgical changes and devices: None. Lungs and pleura: There are patchy consolidative bilateral pulmonary opacities most significant in th e left lung as well as right upper and middle lobes. Overall, it is progressive compared to prior ex am. Bilateral pleural effusions are present. Mediastinum: Mediastinal contours appear normal. Heart size is normal. Bones and chest wall: No suspicious bony lesions. Overlying soft tissues appear unremarkable. IMPRESSION: Marked interval progression of bilateral patchy and consolidative opacities most consistent with pneu monia. Bilateral pleural effusions are noted. Reviewed by: Marcia Paulino MD on 11/09/2020 9:34 AM PDT Approved by: Marcia Paulino MD on 11/09/2020 9:34 AM PDT Station ID: [id number]
[2020-11-09] MEDS: POTASSIUM CHLOR 10 MEQ/100 ML 10 MEQ/100 ML BAG IV SCH ×4 (10:29→16:02)
--- NOTE | 2020-11-09 10:54 | PROVIDER PROGRESS NOTE ---
Assessment/Plan - Problem List (1) Acute respiratory failure with hypoxia Assessment/Plan: Overnight at about midnight with desaturations. O2 supplement increased from 7 L to 15 L. Chest x-ray done overnight that showed worsening of patchy bilateral infiltrates plus CHF (pleural effusion new), possibly ARDS. The was informed. She gave over the phone directions to make him a DNR. She would be considering comfort measures if he continues to get worse, she said. This morning he has improved and is back to baseline O2 needs. He received Lasix 40 mg IV. Continue daily Lasix. Follow BNP (2) CAP (community acquired pneumonia) Assessment/Plan: Bilateral patchy infiltrates continue, possibly ARDS. His antibiotics had already been changed to cefepime and Flagyl 4 days ago when aspiration was considered as the cause of persistent infiltrates. Now on vancomycin also, which was added overnight. Continue Mucinex, nebs if they are helping, supplemental oxygen. (3) Cor pulmonale Assessment/Plan: This was new Dx made by Echo done this admission. His interventricular septum is so flattened, that it is functioning as if he has LV diastolic dysfunction. BNP was 800's at admission>> 900's, but he received iv hydration for several days. The BNP is still elevated, being followed daily. The cause of his Cor Pulmonale appears to be COPD (seen on chest imaging, with Hx of smoking), therefore the saturation target for him will be 88%. Continue bronchodilator nebs, pulmonary toilet with Mucinex and Pulmicort neb was started. A formal swallowing eval with Speech Therapy was ordered, to eval for chronic aspiration. He could not participate on Fri (after getting Morphine for dyspnea and was too sleepy), and Speech is only here M-F. Ordered to be OOB in a chair at least daily. (4) Fracture of superior pubic ramus Qualifiers: Encounter type: subsequent encounter Fracture type: closed Laterality: left Fracture healing: with nonunion Qualified Code(s): S32.512K - Fracture of superior rim of left pubis, subsequent encounter for fracture with nonunion Assessment/Plan: He fell the day before this admission was seen in ER, diagnosed and discharged. PT and pain meds prn are ordered since admission. He was able to walk without pain, 3-4 steps yesterday using a walker, per PT. (5) Lewy body dementia Qualifiers: Dementia behavioral disturbance: with behavioral disturbance Qualified Code(s): G31.83 - Dementia with Lewy bodies; F02.81 - Dementia in other diseases classified elsewhere with behavioral disturbance Assessment/Plan: His told me that he usually has different problems daily; some days it is his speech, some days he cannot recognize her, some days it affects his bowels (constipation). He is very sensitive to anesthetics, sedatives and narcotics, and that is why those broad categories are listed as Adverse Reactions on his allergy list. Seroquel works when he is agitated per the , and this has been ordered as a scheduled med at hs. Continue home Aricept. I gave the update at his bedside, on his entire condition, today. After his worsening respiratory status overnight, a new POLST form requesting DNR has been completed today. She told the Integrated Marketing Manager last night that she would consider comfort measures, if he continues to get worse. I asked for AUDIO/VISUAL OPERATOR to engage him in discussions when he is awake, but 1:1 is not needed. he does need to be fed. (6) Frequent falls Assessment/Plan: As per hx. This was likely related to orthostatic hypotension and Lewy Body Dementia/Parkinsonian symptoms. PT started working with him. There are parts of the day when he is cue-able and not agitated and less confused and cooperates with PT. PT has recommended physical therapy after [facility]. (7) Orthostatic hypotension Assessment/Plan: As per Hx. His home dose of Flurinef 0.2 mg was continued, but was decreased to 0.1 mg here, due to recurrent Hypernatremia. VS are in a good range (8) Hypokalemia Assessment/Plan: Related to diuresis, poor po intake here, and use of Flurinef, which promotes K loss. Will replace K with iv riders. Follow BMP daily. (9) Chronic a-fib Assessment/Plan: His HR is controlled on current meds. The Dig level remains non-toxic at 0.3, it was 0.5 at admission. No telemetry ordered, so as not to have him fidget with telemetry leads, due to his dementia. He is not a candidate for aspirin or anticoagulant due to frequent falls Hx, and was not on either pre-admission. (10) Iron deficiency anemia Assessment/Plan: Oral liquid iron replacement was started several days ago. Guaiac of the stool has come back negative. (11) Hypernatremia Assessment/Plan: Resolved with decreasing the Flurinef dose and he got 500cc of free water (D5 iv ). - Current Meds Current Meds: Current Medications Generic Name Dose Route Start Last Admin Trade Name Freq PRN Reason Stop Dose Admin Acetaminophen 650 mg 11/03/20 08:18 11/09/20 09:10 Acetaminophen 325 Mg Tablet PO 650 mg Q4HR PRN Administration Pain or Fever > 38C (100.4F) Albuterol/Ipratropium 3 ml 11/04/20 12:30 11/09/20 07:18 Ipratropium/Albuterol 3 Ml Neb INH 3 ml RTQID PRN Administration Shortness of Air/Wheezing Budesonide 0.5 mg 11/06/20 12:18 11/09/20 07:18 Budesonide 0.5 Mg/2 Ml Neb INH 0.5 mg RTBID YANELY Administration Carbidopa/Levodopa 1 tab 11/03/20 17:00 11/09/20 09:08 Carbidopa/Levodopa 25 Mg/100 Mg Tablet PO 1 tab QID YANELY Administration Digoxin 125 mcg 11/04/20 09:00 11/09/20 09:09 Digoxin 125 Mcg Tablet PO 125 mcg DAILY YANELY Administration Diltiazem HCl 120 mg 11/04/20 09:00 11/09/20 09:09 Diltiazem Cd 120 Mg Capsule PO 120 mg DAILY YANELY Administration Docusate Sodium 250 - 500 mg 11/05/20 09:00 11/09/20 09:10 Docusate Sodium 250 Mg Capsule PO 250 mg DAILY YANELY Administration Donepezil HCl 10 mg 11/04/20 09:00 11/09/20 09:09 Donepezil 5 Mg Tablet PO 10 mg DAILY YANELY Administration Famotidine 20 mg 11/03/20 21:00 11/09/20 09:08 Famotidine 20 Mg Tablet PO 20 mg BID YANELY Administration Ferrous Sulfate 300 mg 11/05/20 11:00 11/08/20 10:20 Ferrous Sulfate 300 Mg/5 Ml Udc PO 300 mg 1100 YANELY Administration Fludrocortisone Acetate 0.1 mg 11/08/20 09:00 11/09/20 09:08 Fludrocortisone 0.1 Mg Tablet PO 0.1 mg DAILY YANELY Administration Furosemide 20 mg 11/07/20 11:00 11/09/20 09:09 Furosemide 20 Mg Tablet PO 20 mg DAILY YANELY Administration Guaifenesin 600 mg 11/04/20 21:00 11/09/20 09:09 Guaifenesin 600 Mg Tablet PO 600 mg BID YANELY Administration Cefepime HCl 2 gm/ Sodium 100 mls @ 200 mls/hr 11/06/20 21:00 11/09/20 10:38 Chloride IV Infused BID YANELY Infusion Metronidazole 500 mg in 100 mls @ 100 mls/hr 11/06/20 12:00 11/09/20 05:55 Flagyl 500 Mg/100 Ml IV Infused Q8H YANELY Infusion Vancomycin HCl 1.5 gm/ Sodium 500 mls @ 250 mls/hr 11/09/20 03:00 11/09/20 04:50 Chloride IV Infused Q18H YANELY Infusion Potassium Chloride 10 meq in 100 mls @ 100 mls/hr 11/09/20 09:00 11/09/20 10:29 Potassium Chloride IV 11/09/20 12:59 75 mls/hr Q1H YANELY Administration Lactobacillus Rhamnosus 1 cap 11/04/20 12:32 11/09/20 09:08 Lactobacillus Rhamnosus Gg Capsule PO 1 cap DAILY YANELY Administration Magnesium Oxide 400 mg 11/04/20 08:00 11/09/20 09:08 Magnesium Oxide 400 Mg Tablet PO 400 mg DAILYWM YANELY Administration Mirtazapine 30 mg 11/03/20 21:00 11/08/20 20:39 Mirtazapine 15 Mg Tablet PO 30 mg QPM YANELY Administration Montelukast Sodium 10 mg 11/04/20 21:00 11/08/20 20:38 Montelukast 10 Mg Tablet PO 10 mg QPM YANELY Administration Patient Own Med - 1 each 11/07/20 09:00 11/09/20 09:11 Mirabegron Er [ PO Not Given Myrbetriq Er] 25 Mg DAILY YANELY Tabs Polyethylene Glycol 17 gm 11/04/20 09:00 11/09/20 09:11 Polyethylene Glycol 3350 17 Gm Packet PO 17 gm DAILY YANELY Administration Quetiapine Fumarate 12.5 mg 11/05/20 21:00 11/08/20 20:39 Quetiapine 25 Mg Tablet PO 12.5 mg QPM YANELY Administration Senna 8.6 - 17.2 mg 11/05/20 09:00 11/09/20 09:09 Senna 8.6 Mg Tablet PO 8.6 mg DAILY YANELY Administration Sodium Chloride 10 ml 11/03/20 08:18 11/09/20 02:57 Sodium Chloride Flush 0.9% 10 Ml Syringe IVP 10 ml PRN PRN Administration NEEDED PER PROVIDER ORDERS Sodium Chloride 10 ml 11/03/20 09:00 11/09/20 09:11 Sodium Chloride Flush 0.9% 10 Ml Syringe IVP 10 ml 0100,0900,1700 YANELY Administration - Lab Result Fish Bone Diagrams: 11/09/20 07:31 11/09/20 07:31 - Additional Planning My Orders: My Active Orders 11/09/20 MRSA (NASAL) PCR SCREEN Routine 11/09/20 09:00 Potassium Chlor 10 Meq/100 ml [Potassium Chloride] 10 meq in 100 ml IV Q1H Subjective - Subjective Patient Reports: Resting Comfortably Nursing Reports: Other (Overnight he had significant desaturation around midnight, O2 needs increased from 7 L to 15 L, chest x-ray showed worsening) Objective Vital Signs: Vital Signs - 24 hr 11/08/20 11/08/20 11/09/20 16:00 20:14 01:42 Temperature 36.9 C 37.4 C Heart Rate 83 Heart Rate [ 83 97 Brachial] Respiratory 24 18 24 Rate Blood Pressure 135/67 H [Left Brachial artery] Blood Pressure 138/75 H [Right Brachial artery] O2 Saturation 90 L 90 L 11/09/20 11/09/20 11/09/20 05:00 07:19 08:42 Temperature 36.8 C 36.7 C Heart Rate 90 Heart Rate [ 89 104 H Brachial] Respiratory 22 22 24 Rate Blood Pressure 136/62 H [Left Brachial artery] Blood Pressure 129/72 [Right Brachial artery] O2 Saturation 93 90 L Oxygen O2 Source Oxymask Oxygen Flow Rate 4 I&O (Last 24 Hrs): Intake and Output Totals x24h 11/07/20 11/08/20 11/09/20 23:59 23:59 23:59 Intake Total 2850 2591.250 800 Output Total 011 025 9468 Balance 2176 1791.250 -1585 General: Alert, Other (Sleepy, awakens and communicates w/ daughter and at bedside) HEENT: Mucous membr. moist/pink, Other (Wearing ventimask) Neck: Supple Neuro: Alert, Disoriented, Non Focal, Other (Speech sometimes jibberish) Cardiovascular: Regular rate Respiratory: Rales, Rhonchi Abdomen: Soft Extremities: No edema - Results Results: Laboratory Results WBC 8.8 x10^3/uL (4.8-10.8) 11/09/20 07:31 RBC 3.23 10^6/uL (4.70-6.10) L 11/09/20 07:31 Hgb 10.5 g/dL (14.0-18.0) L 11/09/20 07:31 Hct 32.7 % (42.0-52.0) L 11/09/20 07:31 MCV 101.2 fL (80.0-94.0) H 11/09/20 07:31 MCH 32.5 pg (27.0-31.0) H 11/09/20 07:31 MCHC 32.1 g/dL (32.0-36.0) 11/09/20 07:31 RDW 13.6 % (12.0-15.0) 11/09/20 07:31 Plt Count 209 10^3/uL (130-450) 11/09/20 07:31 MPV 9.8 fL (7.4-11.4) 11/09/20 07:31 Neut # (Auto) 7.0 10^3/uL (1.5-6.6) H 11/09/20 07:31 Lymph # (Auto) 0.5 10^3/uL (1.5-3.5) L 11/09/20 07:31 [place] # (Auto) 0.7 10^3/uL (0.0-1.0) 11/09/20 07:31 Eos # (Auto) 0.5 10^3/uL (0.0-0.7) 11/09/20 07:31 Baso # (Auto) 0.0 10^3/uL (0.0-0.1) 11/09/20 07:31 Absolute Nucleated RBC 0.00 x10^3/uL 11/09/20 07:31 Nucleated RBC % 0.0 /100WBC 11/09/20 07:31 Bld Gas Analysis Time 0911/05/20 09:25 Sample Site LEFT RADIAL 11/05/20 09:25 ABG pH 7.41 (7.35-7.45) 11/05/20 09:25 ABG pCO2 35 mmHg (34-45) 11/05/20 09:25 ABG pO2 51 mmHg (80-100) L* 11/05/20 09:25 ABG HCO3 21.8 mmol/L (22.0-26.0) L 11/05/20 09:25 ABG Total CO2 22.8 MMOL/L (21.0-29.0) 11/05/20 09:25 ABG O2 Saturation 86 % (94-98) L* 11/05/20 09:25 ABG Base Excess -2.3 mmol/L (-2.0-3.0) L 11/05/20 09:25 Ender Test POSITIVE 11/05/20 09:25 O2 Delivery Device OXYMIZER 11/05/20 09:25 O2 Liters/Min 12.00 LPM 11/05/20 09:25 Sodium 141 mmol/L (135-145) 11/09/20 07:31 Potassium 3.2 mmol/L (3.5-5.0) L 11/09/20 07:31 Chloride 108 mmol/L (101-111) 11/09/20 07:31 Carbon Dioxide 23 mmol/L (21-32) 11/09/20 07:31 Anion Gap 10.0 (6-13) 11/09/20 07:31 BUN 29 mg/dL (6-20) H 11/09/20 07:31 Creatinine 1.1 mg/dL (0.6-1.2) 11/09/20 07:31 Estimated GFR (MDRD) 64 (>89) L 11/09/20 07:31 Glucose 103 mg/dL (70-100) H 11/09/20 07:31 Lactic Acid 1.0 mmol/L (0.5-2.2) 11/03/20 02:42 Calcium 8.0 mg/dL (8.5-10.3) L 11/09/20 07:31 Magnesium 2.1 mg/dL (1.7-2.8) 11/06/20 04:00 Iron 19 ug/dL (45-182) L 11/05/20 04:03 TIBC 227 ug/dL (250-450) L 11/05/20 04:03 % Saturation 8 % (20-50) L 11/05/20 04:03 Transferrin 162 mg/dL (180-329) L 11/05/20 04:03 Total Bilirubin 1.7 mg/dL (0.2-1.0) H 11/03/20 02:42 AST 23 IU/L (10-42) 11/03/20 02:42 ALT < 10 IU/L (10-60) L 11/03/20 02:42 Alkaline Phosphatase 83 IU/L (42-121) 11/03/20 02:42 Troponin I High Sens 19.0 ng/L (2.3-19.7) 11/06/20 04:00 B-Natriuretic Peptide 673 pg/mL (5-100) H 11/09/20 07:31 Total Protein 7.2 g/dL (6.7-8.2) 11/03/20 02:42 Albumin 3.7 g/dL (3.2-5.5) 11/03/20 02:42 Globulin 3.5 g/dL (2.1-4.2) 11/03/20 02:42 Albumin/Globulin Ratio 1.1 (1.0-2.2) 11/03/20 02:42 Lipase 20 U/L (22-51) L 11/03/20 02:42 Vitamin B12 329 pg/mL (180-914) 11/05/20 04:03 Folate 16.23 ng/mL (5.90 - >24.8) 11/05/20 04:03 Urine Color DARK YELLOW 11/03/20 06:55 Urine Clarity CLEAR (CLEAR) 11/03/20 06:55 Urine pH 5.5 PH (5.0-7.5) 11/03/20 06:55 Ur Specific [place] 1.015 (1.002-1.030) 11/03/20 06:55 Urine Protein 30 mg/dL (NEGATIVE) H 11/03/20 06:55 Urine Glucose (UA) NEGATIVE mg/dL (NEGATIVE) 11/03/20 06:55 Urine Ketones NEGATIVE mg/dL (NEGATIVE) 11/03/20 06:55 Urine Occult Blood NEGATIVE (NEGATIVE) 11/03/20 06:55 Urine Nitrite POSITIVE (NEGATIVE) H 11/03/20 06:55 Urine Bilirubin NEGATIVE (NEGATIVE) 11/03/20 06:55 Urine Urobilinogen 1 (NORMAL) E.U./dL (NORMAL) 11/03/20 06:55 Ur Leukocyte Esterase NEGATIVE (NEGATIVE) 11/03/20 06:55 Urine RBC 0-5 /HPF (0-5) 11/03/20 06:55 Urine WBC 0-3 /HPF (0-3) 11/03/20 06:55 Ur Squamous Epith Cells FEW Squamous (<= Few) 11/03/20 06:55 Urine Bacteria Few /HPF (None Seen) 11/03/20 06:55 Urine Mucus Few Strands 11/03/20 06:55 Ur Microscopic Review INDICATED 11/03/20 06:55 Urine Culture Comments INDICATED 11/03/20 06:55 Nasal Adenovirus (PCR) NOT DETECTED 11/03/20 05:56 Nasal B. parapertussis DNA (PCR) NOT DETECTED 11/03/20 05:56 Nasal Coronavir 229E PCR NOT DETECTED 11/03/20 05:56 Nasal Coronavir HKU1 PCR NOT DETECTED 11/03/20 05:56 Nasal Coronavir NL63 PCR NOT DETECTED 11/03/20 05:56 Nasal Coronavir OC43 PCR NOT DETECTED 11/03/20 05:56 Nasal Enterovir/Rhinovir PCR NOT DETECTED 11/03/20 05:56 Nasal Influenza B PCR NOT DETECTED 11/03/20 05:56 Nasal Influenza A PCR NOT DETECTED 11/03/20 05:56 Nasal Parainfluen 1 PCR NOT DETECTED 11/03/20 05:56 Nasal Parainfluen 2 PCR NOT DETECTED 11/03/20 05:56 Nasal Parainfluen 3 PCR NOT DETECTED 11/03/20 05:56 Nasal Parainfluen 4 PCR NOT DETECTED 11/03/20 05:56 Nasal RSV (PCR) NOT DETECTED 11/03/20 05:56 Nasal B.pertussis DNA PCR NOT DETECTED 11/03/20 05:56 Nasal C.pneumoniae (PCR) NOT DETECTED 11/03/20 05:56 Kenneth Human Metapneumo PCR NOT DETECTED 11/03/20 05:56 Nasal M.pneumoniae (PCR) NOT DETECTED 11/03/20 05:56 Nasal SARS-CoV-2 (PCR) NOT DETECTED 11/03/20 05:56 Last Dose Date 11/05/20 11/06/20 04:00 Last Dose Time 08:30 11/06/20 04:00 Digoxin 0.3 ng/mL 11/06/20 04:00
[2020-11-09] MEDS: FERROUS SULFATE 300 MG/5 ML UDC PO SCH (14:04)
--- NOTE | 2020-11-09 17:57 | PHARMACY PROGRESS NOTE ---
- Therapy Status Vancomycin regimen day #: 1 (1500 MG IV Q24H) Therapy status: Awaiting steady state Basis for treatment: Empirical Treatment indication: Pneumonia Trough goal: 15-20 Concurrent antibiotics: Cefepime, metronidazole - CHARU Risk Risk level for Acute Kidney Injury: High Acute Kidney Injury risk factors: Goal trough >15, Sepsis - Monitoring and Recommendation Clinical response to treatment: I&O Previous 24 hours 11/07/20 11/08/20 11/09/20 23:59 23:59 23:59 Intake Total 2850 2591.250 1620.0 Output Total 234 547 2617 Balance 2176 1791.250 -1265.0 Lab Results 11/09/20 11/08/20 11/07/20 07:31 06:54 07:35 BUN 29 H 32 H 32 H Creatinine 1.1 0.9 0.9 Estimated GFR (MDRD) 64 L 81 L 81 L 11/06/20 11/05/20 11/04/20 04:00 04:03 04:13 BUN 34 H 28 H 30 H Creatinine 1.2 0.9 1.0 Estimated GFR (MDRD) 58 L 81 L 72 L 11/03/20 02:42 BUN 39 H Creatinine 1.2 Estimated GFR (MDRD) 58 L Cultures 11/08/20 09:00 Stool Occult Blood - Final 11/03/20 06:55 Urine,Random Urine Culture - Final Monitoring plan: Daily serum creatinine, Draw trough early
[2020-11-09] MEDS: MIRTAZAPINE 15 MG TABLET PO SCH (21:36)
[2020-11-09] MEDS: MONTELUKAST 10 MG TABLET PO SCH (21:36)
[2020-11-09] MEDS: QUEtiapine 25 MG TABLET PO SCH (21:36)
[2020-11-10] MEDS: SODIUM CHLORIDE FLUSH 0.9% 10 ML SYRINGE IVP PRN ×2 (02:56→22:39)
[2020-11-10] MEDS ORDERED: VANCOMYCIN INJ 1.5 GM in SODIUM CHLORIDE 0.9% 500 ML IV SCH (03:00)
[2020-11-10] MEDS: SODIUM CHLORIDE FLUSH 0.9% 10 ML SYRINGE IVP SCH ×3 (03:29→17:17)
[2020-11-10] MEDS: metroNIDAZOLE 500 MG/100 ML 500 MG/100 ML BAG IV SCH ×3 (04:27→19:57)
[2020-11-10 05:50] LABS: BASOPHILS % (AUTO) 0.4 %; EOSINOPHILS # (AUTO) 0.5 10^3/uL (0.0-0.7); EOSINOPHILS % (AUTO) 6.1 %; HGB - HEMOGLOBIN 9.5 g/dL (14.0-18.0); LYMPHOCYTES # (AUTO) 0.6 10^3/uL (1.5-3.5); LYMPHOCYTES % (AUTO) 7.9 %; MEAN CORPUSCULAR HEMOGLOBIN 32.1 pg (27.0-31.0); MEAN CORPUSCULAR HGB CONC 31.7 g/dL (32.0-36.0); MEAN CORPUSCULAR VOLUME 101.4 fL (80.0-94.0); MEAN PLATELET VOLUME 9.6 fL (7.4-11.4); MONOCYTES # (AUTO) 0.6 10^3/uL (0.0-1.0); MONOCYTES % (AUTO) 8.1 %; NEUTROPHILS # (AUTO) 5.8 10^3/uL (1.5-6.6); NEUTROPHILS % (AUTO) 76.8 %; PLT - PLATELET COUNT 188 10^3/uL (130-450); RED BLOOD COUNT 2.96 10^6/uL (4.70-6.10); WHITE BLOOD COUNT 7.6 x10^3/uL (4.8-10.8)
[2020-11-10 05:59] LABS: CALCIUM 7.9 mg/dL (8.5-10.3); POTASSIUM 3.4 mmol/L (3.5-5.0)
[2020-11-10] MEDS: IPRATROPIUM/ALBUTEROL 3 ML NEB INH PRN ×2 (07:13→21:06)
[2020-11-10] MEDS: BUDESONIDE 0.5 MG/2 ML NEB INH SCH ×2 (07:13→21:06)
[2020-11-10] MEDS: MAGNESIUM OXIDE 400 MG TABLET PO SCH (08:50)
[2020-11-10] MEDS ORDERED: FUROSEMIDE 40 MG/4 ML VIAL IVP STA (09:03)
[2020-11-10] MEDS ORDERED: MORPHINE 2 MG/ML CARPUJECT IVP STA (09:04)
[2020-11-10] MEDS: polyethylene glycoL 3350 17 GM PACKET PO SCH (09:09)
--- NOTE | 2020-11-10 09:11 | PROVIDER PROGRESS NOTE ---
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 Starting at 1:00 this morning deteriorated again in spite of 15 L. He is sitting upright in bed, head tilted back, mouth open and not responding verbally. Current Medications - Current Medications Current Medications: Active Medications Generic Name Dose Route Start Last Admin Trade Name Freq PRN Reason Stop Dose Admin Acetaminophen 650 mg 11/03/20 08:18 11/09/20 19:39 Acetaminophen 325 Mg Tablet PO 650 mg Q4HR PRN Administration Pain or Fever > 38C (100.4F) Albuterol/Ipratropium 3 ml 11/04/20 12:30 11/10/20 07:13 Ipratropium/Albuterol 3 Ml Neb INH 3 ml RTQID PRN Administration Shortness of Air/Wheezing Budesonide 0.5 mg 11/06/20 12:18 11/10/20 07:13 Budesonide 0.5 Mg/2 Ml Neb INH 0.5 mg RTBID YANELY Administration Carbidopa/Levodopa 1 tab 11/03/20 17:00 11/09/20 21:36 Carbidopa/Levodopa 25 Mg/100 Mg Tablet PO 1 tab QID YANELY Administration Digoxin 125 mcg 11/04/20 09:00 11/09/20 09:09 Digoxin 125 Mcg Tablet PO 125 mcg DAILY YANELY Administration Diltiazem HCl 120 mg 11/04/20 09:00 11/09/20 09:09 Diltiazem Cd 120 Mg Capsule PO 120 mg DAILY YANELY Administration Docusate Sodium 250 - 500 mg 11/05/20 09:00 11/09/20 09:10 Docusate Sodium 250 Mg Capsule PO 250 mg DAILY YANELY Administration Donepezil HCl 10 mg 11/04/20 09:00 11/09/20 09:09 Donepezil 5 Mg Tablet PO 10 mg DAILY YANELY Administration Famotidine 20 mg 11/03/20 21:00 11/09/20 21:36 Famotidine 20 Mg Tablet PO 20 mg BID YANELY Administration Ferrous Sulfate 300 mg 11/05/20 11:00 11/09/20 14:04 Ferrous Sulfate 300 Mg/5 Ml Udc PO Not Given 1100 YANELY Fludrocortisone Acetate 0.1 mg 11/08/20 09:00 11/09/20 09:08 Fludrocortisone 0.1 Mg Tablet PO 0.1 mg DAILY YANELY Administration Furosemide 20 mg 11/07/20 11:00 11/09/20 09:09 Furosemide 20 Mg Tablet PO 20 mg DAILY YANELY Administration Guaifenesin 600 mg 11/04/20 21:00 11/09/20 21:36 Guaifenesin 600 Mg Tablet PO 600 mg BID YANELY Administration Cefepime HCl 2 gm/ Sodium 100 mls @ 200 mls/hr 11/06/20 21:00 11/10/20 09:15 Chloride IV 200 mls/hr BID YANELY Administration Metronidazole 500 mg in 100 mls @ 100 mls/hr 11/06/20 12:00 11/10/20 05:39 Flagyl 500 Mg/100 Ml IV Infused Q8H YANELY Infusion Vancomycin HCl 1.5 gm/ Sodium 500 mls @ 250 mls/hr 11/10/20 03:00 11/10/20 05:39 Chloride IV Infused Q24H YANELY Infusion Lactobacillus Rhamnosus 1 cap 11/04/20 12:32 11/09/20 09:08 Lactobacillus Rhamnosus Gg Capsule PO 1 cap DAILY YANELY Administration Magnesium Oxide 400 mg 11/04/20 08:00 11/10/20 08:50 Magnesium Oxide 400 Mg Tablet PO 400 mg DAILYWM YANELY Administration Mirtazapine 30 mg 11/03/20 21:00 11/09/20 21:36 Mirtazapine 15 Mg Tablet PO 30 mg QPM YANELY Administration Montelukast Sodium 10 mg 11/04/20 21:00 11/09/20 21:36 Montelukast 10 Mg Tablet PO 10 mg QPM YANELY Administration Naproxen 250 mg 11/04/20 13:15 Naproxen 250 Mg Tablet PO Q12H PRN PAIN Ondansetron HCl 4 mg 11/03/20 08:18 Ondansetron 4 Mg/2 Ml Vial IVP Q6HR PRN Nausea / Vomiting Patient Own Med - 1 each 11/07/20 09:00 11/09/20 09:11 Mirabegron Er [ PO Not Given Myrbetriq Er] 25 Mg DAILY YANELY Tabs Polyethylene Glycol 17 gm 11/04/20 09:00 11/10/20 09:09 Polyethylene Glycol 3350 17 Gm Packet PO 17 gm DAILY YANELY Administration Quetiapine Fumarate 12.5 mg 11/05/20 21:00 11/09/20 21:36 Quetiapine 25 Mg Tablet PO 12.5 mg QPM YANELY Administration Senna 8.6 - 17.2 mg 11/05/20 09:00 11/09/20 09:09 Senna 8.6 Mg Tablet PO 8.6 mg DAILY YANELY Administration Sodium Chloride 10 ml 11/03/20 08:18 11/10/20 02:56 Sodium Chloride Flush 0.9% 10 Ml Syringe IVP 10 ml PRN PRN Administration NEEDED PER PROVIDER ORDERS Sodium Chloride 10 ml 11/03/20 09:00 11/10/20 03:29 Sodium Chloride Flush 0.9% 10 Ml Syringe IVP 10 ml 0100,0900,1700 YANELY Administration Digoxin 125 mcg PO DAILY 11/03/17 Carbidopa/Levodopa [Carbidopa-Levodopa 25-100 Tab] 1 each PO QID 03/26/19 Fludrocortisone [Florinef] 0.2 mg PO DAILY 03/26/19 Mirtazapine [Remeron] 30 mg PO QPM 10/04/20 Magnesium Citrate 150 mg PO DAILY 11/02/20 Acetaminophen [Acetaminophen Extra Strength] 500 mg PO Q4H PRN 11/03/20 Alendronate [Fosamax] 70 mg PO MO 11/03/20 Donepezil HCl [Aricept] 10 mg PO DAILY 11/03/20 Melatonin/Pyridoxine [Melatonin 5 mg Tablet] 1 each PO PRN PRN 11/03/20 Mirabegron [Myrbetriq] 25 mg PO DAILY 11/03/20 Naproxen Sodium [Aleve] 220 mg PO Q12H PRN 11/03/20 Polyethylene Glycol 3350 [Glycolax] 17 g PO DAILY 11/03/20 dilTIAZem HCL [Diltiazem 24Hr ER (Xr)] 120 mg PO DAILY 11/03/20 Objective - Vital Signs/Intake & Output Reviewed Vital Signs: Yes Vital Signs: Vital Signs x48h Temp Pulse Pulse Resp BP Pulse Ox 11/10/20 07:42 36.9 C 110 H 40 H 153/83 H 75 L 11/10/20 07:16 104 H 36 H 11/10/20 05:00 37.4 C 76 24 121/82 H 87 L 11/10/20 01:45 36.9 C 91 24 145/73 H 87 L Intake & Output: Intake & Output 11/07/20 11/08/20 11/09/20 11/10/20 23:59 23:59 23:59 23:59 Intake Total 2850 2591.250 2070.0 600 Output Total 369 598 9104 250 Balance 2176 1791.250 -1115.0 350 - Objective General Appearance: positive: Moderate distress, Lethargic ENT: positive: Dry mucous membranes (from open mouth breathing, head back, neck in extension) Neck: positive: No JVD. negative: Stiff neck Respiratory: positive: Wheezes, Rales, Other (Tachypnea and rib retraction. Using abdominal muscles.) Cardiovascular: positive: Regular rate & rhythm, Tachycardia, Systolic murmur. negative: Gallop/S4, Friction rub Abdomen: positive: No organomegaly, Nml bowel sounds, No distention Skin: positive: Warm, Dry, Pallor Extremities: positive: Nml appearance, No pedal edema Neurologic/Psychiatric: positive: Disoriented to person, Disoriented to place, Disoriented to time, Other (Not responding to voice or command this morning.) - Lab Results Fish Bones: 11/10/20 05:47 11/10/20 05:47 Other Labs: Lab Results x24hrs 11/10/20 11/10/20 11/09/20 Range/Units 05:47 05:47 17:30 WBC 7.6 (4.8-10.8) x10^3/uL RBC 2.96 L (4.70-6.10) 10^6/uL Hgb 9.5 L (14.0-18.0) g/dL Hct 30.0 L (42.0-52.0) % MCV 101.4 H (80.0-94.0) fL MCH 32.1 H (27.0-31.0) pg MCHC 31.7 L (32.0-36.0) g/dL RDW 14.0 (12.0-15.0) % Plt Count 188 (130-450) 10^3/uL MPV 9.6 (7.4-11.4) fL Neut # (Auto) 5.8 (1.5-6.6) 10^3/uL Lymph # (Auto) 0.6 L (1.5-3.5) 10^3/uL [place] # (Auto) 0.6 (0.0-1.0) 10^3/uL Eos # (Auto) 0.5 (0.0-0.7) 10^3/uL Baso # (Auto) 0.0 (0.0-0.1) 10^3/uL Absolute Nucleated RBC 0.00 x10^3/uL Nucleated RBC % 0.0 /100WBC Sodium 143 (135-145) mmol/L Potassium 3.4 L (3.5-5.0) mmol/L Chloride 110 (101-111) mmol/L Carbon Dioxide 22 (21-32) mmol/L Anion Gap 11.0 (6-13) BUN 30 H (6-20) mg/dL Creatinine 1.0 (0.6-1.2) mg/dL Estimated GFR (MDRD) 72 L (>89) Glucose 102 H (70-100) mg/dL Calcium 7.9 L (8.5-10.3) mg/dL Nasal Screen MRSA (PCR) NEGATIVE (NEGATIVE) ABX Reporting Has patient been on IV antibiotics over the past 48 hours?: Yes Assessment/Plan - Problem List (1) Acute respiratory failure with hypoxia Impression: The night before last he suddenly desaturated and had a very bad night. Needed to go from 7 L to 15 L. His chest x-ray showed worsening patchy bilateral infi ltrates plus CHF. He was given Lasix 40 mg IV push and was -1115 cc yesterday. He is DO NOT RESUSCITATE after conversation with his . I spoke to her again this morning. Yesterday he seemed to stabilize and was holding his own with regards to O2 sats. But by 1:00 this morning he is starting to desaturate again. In spite of 15 L oxygen mask he is 75% saturated. We discussed his poor prognosis. continues to reiterate DO NOT RESUSCITATE status. No intubation. No transfer to ICU. We discussed the use of morphine and Ativan. While she agrees with the morphine, she asked us not to give Ativan because it seems to make him more agitated when you combine the Ativan with Lewy body dementia. Overall he is still +6 L between the beginning of his stay and now. Plan: Lasix 40 mg IV push Morphine 2 mg once Reassess. If response will continue with Lasix regularly. If no response, consider transitioning to comfort measures only. (2) CAP (community acquired pneumonia) Assessment/Plan: Bilateral patchy infiltrates continue, possibly ARDS. His antibiotics had already been changed to cefepime and Flagyl 5 days ago when aspiration was considered as the cause of persistent infiltrates. Now on vancomycin also, which was added Day #2 Continue Mucinex, nebs if they are helping, supplemental oxygen. (3) Cor pulmonale Assessment/Plan: This was new Dx made by Echo done this admission. His interventricular septum is so flattened, that it is functioning as if he has LV diastolic dysfunction. BNP 832>> 907>> 826>> 673 today The cause of his Cor Pulmonale appears to be COPD (seen on chest imaging, with Hx of smoking), therefore the saturation target for him will be 88%. Plan: Continue bronchodilator nebs, pulmonary toilet with Mucinex and Pulmicort neb was started. A formal swallowing eval with Speech Therapy was ordered, to eval for chronic aspiration. He could not participate on 11/06 (after getting Morphine for dyspnea and was too sleepy), and Speech is only here M-F. Unable to get him out of bed because of his shortness of breath and lethargy. I do not think he will be able to cooperate with speech therapy today as well. Plan: Hopefully we will get speech therapy if he can wake up enough. But his prognosis is poor (4) Fracture of superior pubic ramus Qualifiers: Encounter type: subsequent encounter Fracture type: closed Laterality: left Fracture healing: with nonunion Qualified Code(s): S32.512K - Fracture of superior rim of left pubis, subsequent encounter for fracture with nonunion Assessment/Plan: He fell the day before this admission, was seen in ER, diagnosed and discharged. PT and pain meds prn are ordered since admission. He was able to walk without pain, 3-4 steps 11/08 using a walker, per PT. Will be unable to participate today due to hypoxia. (5) Lewy body dementia Qualifiers: Dementia behavioral disturbance: with behavioral disturbance Qualified Code(s): G31.83 - Dementia with Lewy bodies; F02.81 - Dementia in other diseases classified elsewhere with behavioral disturbance Assessment/Plan: spoke to Dr. Siddiqi, previous hospitalist, told her that he usually has different problems daily; some days it is his speech, some days he cannot recognize her, some days it affects his bowels (constipation). He is very sensitive to anesthetics, sedatives and narcotics, and that is why those broad categories are listed as Adverse Reactions on his allergy list. Seroquel works when he is agitated per the , and this has been ordered as a scheduled med at . Plan was to Continue home Aricept. After speaking to his yesterday, and after his worsening respiratory status overnight, a new POLST form requesting DNR has been completed 11/09. She told the [facility] 11/08 that she would consider comfort measures, if he continues to get worse. No changes today after discussing his deteriorating status. Plan: to keep his updated. (6) Frequent falls Assessment/Plan: As per hx. This was likely related to orthostatic hypotension and Lewy Body Dementia/Parkinsonian symptoms. PT started working with him. There are parts of the day when he is cue-able and not agitated and less confused and cooperates with PT. PT has recommended physical therapy after [facility]. (7) Orthostatic hypotension Assessment/Plan: As per Hx. His home dose of Flurinef 0.2 mg was continued, but was decreased to 0.1 mg here, due to recurrent Hypernatremia. VS are in a good range (8) Hypokalemia Assessment/Plan: Related to diuresis, poor po intake here, and use of Flurinef, which promotes K loss. Will replace K with iv riders. Follow BMP daily. (9) Chronic a-fib Assessment/Plan: His HR is controlled on current meds. The Dig level remains non-toxic at 0.3, it was 0.5 at admission. No telemetry ordered, so as not to have him fidget with telemetry leads, due to his dementia. He is not a candidate for aspirin or anticoagulant due to frequent falls Hx, and was not on either pre-admission. (10) Iron deficiency anemia Assessment/Plan: Oral liquid iron replacement was started several days ago. Guaiac of the stool has come back negative. (11) Hypernatremia Assessment/Plan: Resolved with decreasing the Flurinef dose and he got 500cc of free water (D5 iv ).
[2020-11-10] MEDS: CEFEPIME 2 GM in SODIUM CHLORIDE 0.9% MINIBAG 100 ML IV SCH ×2 (09:15→21:36)
[2020-11-10] MEDS: FUROSEMIDE 20 MG TABLET PO SCH (09:20)
[2020-11-10] MEDS: DIGOXIN 125 MCG TABLET PO SCH (09:21)
[2020-11-10] MEDS: CARBIDOPA/LEVODOPA 25 MG/100 MG TABLET PO SCH ×4 (09:21→21:39)
[2020-11-10] MEDS: FLUDROCORTISONE 0.1 MG TABLET PO SCH (09:25)
[2020-11-10] MEDS: diltiaZEM CD 120 MG CAPSULE PO SCH (09:25)
[2020-11-10] MEDS: FAMOTIDINE 20 MG TABLET PO SCH ×2 (09:25→21:40)
[2020-11-10] MEDS: DONEPEZIL 5 MG TABLET PO SCH (09:25)
[2020-11-10] MEDS: guaiFENesin 600 MG TABLET PO SCH (09:28)
[2020-11-10] MEDS: DOCUSATE SODIUM 250 MG CAPSULE PO SCH (09:28)
[2020-11-10] MEDS: LACTOBACILLUS RHAMNOSUS GG CAPSULE PO SCH (09:28)
[2020-11-10] MEDS: MIRABEGRON 25 MG PO SCH (09:29)
[2020-11-10] MEDS: SENNA 8.6 MG TABLET PO SCH (09:29)
[2020-11-10] MEDS: FERROUS SULFATE 300 MG/5 ML UDC PO SCH (12:32)
[2020-11-10] MEDS: MORPHINE 2 MG/ML CARPUJECT IVP PRN ×3 (13:24→22:39)
--- NOTE | 2020-11-10 16:47 | PHARMACY PROGRESS NOTE ---
- Therapy Status Vancomycin regimen day #: 2 (Vanco 1500 mg q24h) Therapy status: Awaiting steady state Basis for treatment: Empirical Treatment indication: Pneumonia Trough goal: 15-20 Concurrent antibiotics: cefepime, metronidazole - CHARU Risk Risk level for Acute Kidney Injury: High Acute Kidney Injury risk factors: Goal trough >15, Sepsis - Monitoring and Recommendation Clinical response to treatment: I&O Previous 24 hours 11/08/20 11/09/20 11/10/20 23:59 23:59 23:59 Intake Total 2591.250 2070.0 1774 Output Total 800 3185 2600 Balance 1791.250 -1115.0 -826 Lab Results 11/10/20 11/09/20 11/08/20 05:47 07:31 06:54 BUN 30 H 29 H 32 H Creatinine 1.0 1.1 0.9 Estimated GFR (MDRD) 72 L 64 L 81 L 11/07/20 11/06/20 11/05/20 07:35 04:00 04:03 BUN 32 H 34 H 28 H Creatinine 0.9 1.2 0.9 Estimated GFR (MDRD) 81 L 58 L 81 L 11/04/20 11/03/20 04:13 02:42 BUN 30 H 39 H Creatinine 1.0 1.2 Estimated GFR (MDRD) 72 L 58 L Cultures 11/08/20 09:00 Stool Occult Blood - Final 11/03/20 06:55 Urine,Random Urine Culture - Final Vancomycin 1500 mg continued, will move today's dose up to 2100, to facilitate better trough monitoring, and with patient's improved renal function he is on the border of q18 hour dosing. Will check level tomorrow. Of note nasal MRSA screen is negative. No other cultures. Monitoring plan: Daily serum creatinine, Draw trough early
[2020-11-10] MEDS ORDERED: VANCOMYCIN IV SCH (21:00)
[2020-11-10] MEDS ORDERED: SODIUM CHLORIDE 0.9% IV SCH (21:00)
[2020-11-10] MEDS: QUEtiapine 25 MG TABLET PO SCH (21:39)
[2020-11-10] MEDS: MIRTAZAPINE 15 MG TABLET PO SCH (21:39)
[2020-11-11] MEDS: SODIUM CHLORIDE FLUSH 0.9% 10 ML SYRINGE IVP SCH ×3 (02:17→17:12)
[2020-11-11] MEDS: MORPHINE 2 MG/ML CARPUJECT IVP PRN ×3 (02:17→09:09)
[2020-11-11] MEDS: metroNIDAZOLE 500 MG/100 ML 500 MG/100 ML BAG IV SCH (04:28)
[2020-11-11] MEDS: BUDESONIDE 0.5 MG/2 ML NEB INH SCH ×2 (07:14→19:30)
[2020-11-11] MEDS: IPRATROPIUM/ALBUTEROL 3 ML NEB INH PRN ×2 (07:14→19:30)
[2020-11-11] MEDS: SODIUM CHLORIDE FLUSH 0.9% 10 ML SYRINGE IVP PRN ×2 (08:53→09:09)
[2020-11-11] MEDS: CEFEPIME 2 GM in SODIUM CHLORIDE 0.9% MINIBAG 100 ML IV SCH (09:04)
[2020-11-11] MEDS: CARBIDOPA/LEVODOPA 25 MG/100 MG TABLET PO SCH ×4 (10:50→20:30)
[2020-11-11] MEDS: DIGOXIN 125 MCG TABLET PO SCH (10:50)
[2020-11-11] MEDS: polyethylene glycoL 3350 17 GM PACKET PO SCH (10:51)
[2020-11-11] MEDS: FAMOTIDINE 20 MG TABLET PO SCH (10:51)
[2020-11-11] MEDS: SENNA 8.6 MG TABLET PO SCH (10:51)
[2020-11-11] MEDS: diltiaZEM CD 120 MG CAPSULE PO SCH (10:51)
[2020-11-11] MEDS: DONEPEZIL 5 MG TABLET PO SCH (10:51)
[2020-11-11] MEDS: DOCUSATE SODIUM 250 MG CAPSULE PO SCH (10:51)
[2020-11-11] MEDS: FLUDROCORTISONE 0.1 MG TABLET PO SCH (10:51)
[2020-11-11] MEDS: FUROSEMIDE 20 MG TABLET PO SCH (10:51)
[2020-11-11] MEDS ORDERED: LORazepam 1 MG TABLET PO PRN (11:02)
[2020-11-11] MEDS ORDERED: CARBOXYMETHYLCELLULOSE OPHTH DROPS EACHEYE PRN (11:02)
[2020-11-11] MEDS ORDERED: LORazepam 2 MG/ML VIAL IVP PRN (11:02)
[2020-11-11] MEDS ORDERED: HALOPERIDOL 5 MG/ML VIAL SUBQ PRN (11:02)
[2020-11-11] MEDS ORDERED: HALOPERIDOL 5 MG/ML VIAL IVP PRN (11:02)
[2020-11-11] MEDS ORDERED: GLYCOPYRROLATE 1 MG/5 ML VIAL SUBQ PRN (11:02)
[2020-11-11] MEDS ORDERED: ACETAMINOPHEN 160 MG/5 ML SUSP UDC PO PRN (11:02)
[2020-11-11] MEDS: MORPHINE SOL 10 MG/0.5 ML ORAL SYRINGE PO PRN ×4 (11:15→23:03)
--- NOTE | 2020-11-11 12:24 | PROVIDER PROGRESS NOTE ---
Subjective - Prog Note Date Prog Note Date: 11/11/20 Prog Note Time: 12:44 - Subjective Subjective: Today he is actually opening up his eyes, trying to speak sentences but the sentences are not lucid. Everyone said all he does make sense about "where am I" but for the most part not able to contribute meaningfully to the conversation. is at the bedside. He continues to need Oxymizer 13 to 15 L to maintain O2 sats. At times he drops into the low 80s to mid 80s saturation with this. Sometimes he is comfortable and other times he is using ribs with retraction, and abdominal wall muscles. No cough. Not eating. Current Medications - Current Medications Current Medications: Active Medications Acetaminophen (Acetaminophen 325 Mg Tablet) 650 mg PO Q4HR PRN PRN Reason: Pain or Fever > 38C (100.4F) Last Admin: 11/09/20 19:39 Dose: 650 mg Documented by: Acetaminophen (Acetaminophen 160 Mg/5 Ml Susp Udc) 640 mg PO Q4H PRN PRN Reason: Fever >101 Albuterol/Ipratropium (Ipratropium/Albuterol 3 Ml Neb) 3 ml INH RTQID PRN PRN Reason: Shortness of Air/Wheezing Last Admin: 11/11/20 07:14 Dose: 3 ml Documented by: Budesonide (Budesonide 0.5 Mg/2 Ml Neb) 0.5 mg INH RTBID [facility] Last Admin: 11/11/20 07:14 Dose: 0.5 mg Documented by: Carbidopa/Levodopa (Carbidopa/Levodopa 25 Mg/100 Mg Tablet) 1 tab PO QID [facility] Last Admin: 11/11/20 10:50 Dose: Not Given Documented by: Carboxymethylcellulose (Carboxymethylcellulose Ophth Drops) 1 drops EACHEYE QID PRN PRN Reason: Dry Eye Digoxin (Digoxin 125 Mcg Tablet) 125 mcg PO DAILY [facility] Last Admin: 11/11/20 10:50 Dose: Not Given Documented by: Diltiazem HCl (Diltiazem Cd 120 Mg Capsule) 120 mg PO DAILY [facility] Last Admin: 11/11/20 10:51 Dose: Not Given Documented by: Docusate Sodium (Docusate Sodium 250 Mg Capsule) 250 - 500 mg PO DAILY [facility] Last Admin: 11/11/20 10:51 Dose: Not Given Documented by: Fludrocortisone Acetate (Fludrocortisone 0.1 Mg Tablet) 0.1 mg PO DAILY [facility] Last Admin: 11/11/20 10:51 Dose: Not Given Documented by: Furosemide (Furosemide 20 Mg Tablet) 20 mg PO DAILY [facility] Last Admin: 11/11/20 10:51 Dose: Not Given Documented by: Glycopyrrolate (Glycopyrrolate 1 Mg/5 Ml Vial) 0.2 mg SUBQ Q4H PRN PRN Reason: Excessive secretions Haloperidol (Haloperidol 5 Mg/Ml Vial) 0.5 mg SUBQ Q1H PRN PRN Reason: Nausea / Vomiting Haloperidol (Haloperidol 5 Mg/Ml Vial) 0.5 mg IVP Q2H PRN PRN Reason: Agitation Lorazepam (Lorazepam 1 Mg Tablet) 1 mg PO Q6H PRN PRN Reason: Anxiety/Agitation Lorazepam (Lorazepam 2 Mg/Ml Vial) 1 mg IVP Q6H PRN PRN Reason: Anxiety/Agitation Morphine Sulfate (Morphine 2 Mg/Ml Carpuject) 2 mg IVP Q2HR PRN PRN Reason: PAIN Last Admin: 11/11/20 09:09 Dose: 2 mg Documented by: Morphine Sulfate (Morphine Lashawn 10 Mg/0.5 Ml Oral Syringe) 10 mg PO Q2HR PRN PRN Reason: PAIN Last Admin: 11/11/20 11:15 Dose: 10 mg Documented by: Ondansetron HCl (Ondansetron 4 Mg/2 Ml Vial) 4 mg IVP Q6HR PRN PRN Reason: Nausea / Vomiting Polyethylene Glycol (Polyethylene Glycol 3350 17 Gm Packet) 17 gm PO DAILY [facility] Last Admin: 11/11/20 10:51 Dose: Not Given Documented by: Quetiapine Fumarate (Quetiapine 25 Mg Tablet) 12.5 mg PO QPM [facility] Last Admin: 11/10/20 21:39 Dose: 12.5 mg Documented by: Senna (Senna 8.6 Mg Tablet) 8.6 - 17.2 mg PO DAILY [facility] Last Admin: 11/11/20 10:51 Dose: Not Given Documented by: Sodium Chloride (Sodium Chloride Flush 0.9% 10 Ml Syringe) 10 ml IVP PRN PRN PRN Reason: NEEDED PER PROVIDER ORDERS Last Admin: 11/11/20 09:09 Dose: 10 ml Documented by: Sodium Chloride (Sodium Chloride Flush 0.9% 10 Ml Syringe) 10 ml IVP 0100,0900,1700 YAN[facility] Last Admin: 11/11/20 06:32 Dose: 10 ml Documented by: Digoxin 125 mcg PO DAILY 11/03/17 Carbidopa/Levodopa [Carbidopa-Levodopa 25-100 Tab] 1 each PO QID 03/26/19 Fludrocortisone [Florinef] 0.2 mg PO DAILY 03/26/19 Mirtazapine [Remeron] 30 mg PO QPM 10/04/20 Magnesium Citrate 150 mg PO DAILY 11/02/20 Acetaminophen [Acetaminophen Extra Strength] 500 mg PO Q4H PRN 11/03/20 Alendronate [Fosamax] 70 mg PO MO 11/03/20 Donepezil HCl [Aricept] 10 mg PO DAILY 11/03/20 Melatonin/Pyridoxine [Melatonin 5 mg Tablet] 1 each PO PRN PRN 11/03/20 Mirabegron [Myrbetriq] 25 mg PO DAILY 11/03/20 Naproxen Sodium [Aleve] 220 mg PO Q12H PRN 11/03/20 Polyethylene Glycol 3350 [Glycolax] 17 g PO DAILY 11/03/20 dilTIAZem HCL [Diltiazem 24Hr ER (Xr)] 120 mg PO DAILY 11/03/20 Objective - Vital Signs/Intake & Output Reviewed Vital Signs: Yes Vital Signs: Vital Signs x48h Temp Pulse Pulse Resp BP BP Pulse Ox 11/11/20 08:09 37.2 C 120 H 24 118/67 89 L 11/11/20 07:14 76 24 11/11/20 06:33 36.9 C 99 28 H 137/80 H 82 L Intake & Output: Intake & Output 11/08/20 11/09/20 11/10/20 11/11/20 23:59 23:59 23:59 23:59 Intake Total 2591.250 2070.0 2274 510 Output Total 800 3185 3050 275 Balance 1791.250 -1115.0 -776 235 - Objective General Appearance: positive: Moderate distress Eyes Bilateral: positive: PERRL ENT: positive: Dry mucous membranes (From open mouth breathing) Neck: positive: No JVD. negative: Stiff neck Respiratory: positive: Wheezes, Rales, Rhonchi, Other (Baseline respiratory rate 20-21. With shortness of breath he will go to 28. Currently 24 with this exam) Cardiovascular: positive: Regular rate & rhythm, Tachycardia (At times but not all the time), Systolic murmur. negative: Gallop/S4, Friction rub Abdomen: positive: Non-tender, No organomegaly, Nml bowel sounds, No distention Skin: positive: Warm, Dry, Pallor Extremities: positive: Full ROM, No pedal edema Neurologic/Psychiatric: positive: CN's nml (2-12), Disoriented to person (But he does recognize his . Does recognize his daughter.), Disoriented to place, Disoriented to time. negative: Motor nml (Occasional baseline hand tremor. Cannot sit up in bed at all with cogwheel rigidity evident) - Lab Results Fish Bones: 11/10/20 05:47 11/10/20 05:47 ABX Reporting Has patient been on IV antibiotics over the past 48 hours?: Yes Assessment/Plan - Problem List (1) Acute respiratory failure with hypoxia Impression: The night of the , he suddenly desaturated and had a very bad night. Needed to go from 7 L to 15 L. His chest x-ray showed worsening patchy bilateral infiltrates plus CHF. He was given Lasix 40 mg IV push and was -1115 cc yesterday. He is DO NOT RESUSCITATE after conversation with his . I spoke to her again on the morning of 11/10. On the , he seemed to have stabilized and was holding his own with regards to O2 sats. But by 1:00 am of the , he was starting to desaturate again. In spite of 15 L oxygen mask he is 75% saturated. I discussed his poor prognosis with his . continued to reiterate DO NOT RESUSCITATE status. No intubation. No transfer to ICU. We discussed the use of morphine and Ativan. While she agrees with the morphine, she asked us not to give Ativan because it seems to make him more agitated when you combine the Ativan with Lewy body dementia. Overall he is still +6 L between the beginning of his stay and now. I gave him 40 mg more of Lasix on November 10. Negative intake and output balance achieved. But still significant respiratory distress. Still needing 13 to 15 L of Oxymizer to maintain O2 sats. Respiratory distress manifested by tachypnea and tachycardia comes and goes. Sometimes uses abdominal muscles sometimes he does not. Sometimes there is rib retraction. and daughter have been at the bedside today and this morning. Plan: Advance care planning conversation held again with While he is incrementally better and that he can get down to 13 L Oxymizer, he still with significant respiratory distress. Please see advance care planning conversation details. Transition to comfort measures and hospice (2) CAP (community acquired pneumonia) Assessment/Plan: Bilateral patchy infiltrates continue, possibly ARDS. His antibiotics had already been changed to cefepime and Flagyl 6 days ago when aspiration was considered as the cause of persistent infiltrates. Now on vancomycin also, which was added Day #3 All of this will be stopped and transition to comfort measures (3) Cor pulmonale Assessment/Plan: This was new Dx made by Echo done this admission. His interventricular septum is so flattened, that it is functioning as if he has LV diastolic dysfunction. BNP 832>> 907>> 826>> 673 today The cause of his Cor Pulmonale appears to be COPD (seen on chest imaging, with Hx of smoking), therefore the saturation target for him will be 88%. Plan: Continue bronchodilator nebs, pulmonary toilet with Mucinex and Pulmicort neb was started. A formal swallowing eval with Speech Therapy was ordered, to eval for chronic aspiration. He could not participate on 11/06 (after getting Morphine for dyspnea and was too sleepy), and Speech is only here M-F. We have been unable to get him out of bed because of his shortness of breath and lethargy. Plan: Transition to comfort measures (4) Fracture of superior pubic ramus Qualifiers: Encounter type: subsequent encounter Fracture type: closed Laterality: left Fracture healing: with nonunion Qualified Code(s): S32.512K - Fracture of superior rim of left pubis, subsequent encounter for fracture with nonunion Assessment/Plan: He fell the day before this admission, was seen in ER, diagnosed and discharged. PT and pain meds prn are ordered since admission. He was able to walk without pain, 3-4 steps 3 using a walker, per PT. (5) Lewy body dementia Qualifiers: Dementia behavioral disturbance: with behavioral disturbance Qualified Code(s): G31.83 - Dementia with Lewy bodies; F02.81 - Dementia in other diseases classified elsewhere with behavioral disturbance Assessment/Plan: spoke to Dr. Siddiqi, previous hospitalist, told her that he usually has different problems daily; some days it is his speech, some days he cannot recognize her, some days it affects his bowels (constipation). He is very sensitive to anesthetics, sedatives and narcotics, and that is why those broad categories are listed as Adverse Reactions on his allergy list. Seroquel works when he is agitated per the , and this has been ordered as a scheduled med at . Plan was to Continue home Aricept. After speaking to his 11/09, and after his worsening respiratory status overnight, a new POLST form requesting DNR has been completed 11/09. She told the Office Technologist 11/08 that she would consider comfort measures, if he continues to get worse. No changes today after discussing his deteriorating status. He has not really improved. Still in severe respiratory distress. She would like to transition to comfort measures. I have made a referral to hospice. I have spoken to Jocelyn to answer any questions at the hospice department may need answered. Jocelyn will now speak to Cecilia, discharge planning, and start making the arrangements to get him back to memory care unit. (6) Frequent falls Assessment/Plan: As per hx. This was likely related to orthostatic hypotension and Lewy Body Dementia/Parkinsonian symptoms. PT started working with him. There are parts of the day when he is cue-able and not agitated and less confused and cooperates with PT. PT has recommended physical therapy after DCh. After consideration and transition to comfort measures, the patient will be discharged back to memory care unit with hospice. No attempted physical therapy. (7) Orthostatic hypotension Assessment/Plan: As per Hx. His home dose of Flurinef 0.2 mg was continued, but was decreased to 0.1 mg here, due to recurrent Hypernatremia. VS are in a good range As of now. But we will stop checking vital signs with comfort measures (8) Hypokalemia Assessment/Plan: Related to diuresis, poor po intake here, and use of Flurinef, which promotes K loss. We have been checking potassium daily and replacing as needed. We will no longer check labs (9) Chronic a-fib Assessment/Plan: His HR is controlled on current meds. The Dig level remains non-toxic at 0.3, it was 0.5 at admission. No telemetry ordered, so as not to have him fidget with telemetry leads, due to his dementia. He is not a candidate for aspirin or anticoagulant due to frequent falls Hx, and was not on either pre-admission. (10) Iron deficiency anemia Assessment/Plan: Oral liquid iron replacement was started several days ago. Guaiac of the stool has come back negative. Iron will be stopped today. (11) Hypernatremia Assessment/Plan: Resolved with decreasing the Flurinef dose and he got 500cc of free water (D5 iv ). P.o. intake as needed and as he request
--- NOTE | 2020-11-11 12:28 | ADVANCE CARE PLANNING NOTE ---
Advance Care Planning - Planning Encounter Date: 11/11/20 Time: 10:30 - Diagnosis for Encounter (1) Lewy body dementia Qualifiers: Dementia behavioral disturbance: with behavioral disturbance Qualified Code(s): G31.83 - Dementia with Lewy bodies; F02.81 - Dementia in other diseases classified elsewhere with behavioral disturbance Summary: When he fell out of a moving golf cart 8 years ago, and after needing anesthesia for surgery, he has "never been the same mentally", the said and has progressively worsened with mentation. He has been dx with Lewy Body Dementia and each day he has different problems: some days speech, some days recent memory, some days constipation. He takes Aricept. At the [facility] he was able to walk without a device, like a cane or walker. He could feed himself and has a great appetite. She spoke to him when he was agitated and heard how he was just speaking jiberish. She comes to see him daily here at the hospital and he has improved a bit from that but still has problems w forming lucid sentences. 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 They moved to [facility] 4 years ago from [place]. She was a prescription supervisory historian for her studio and he was one of the actors in the studio. They moved here because it was so beautiful and so peaceful. As he developed more more dementia, she had hired a private duty caregiver that works 16 hours a week. She describes her /the patient as a charming, talkative, "always on the go" gentleman. They have been for 14 years and has been very hard to watch him deteriorate with his dementia. A crisis occurred when she was helping him walk down the hallway. With his Parkinson's movement disorder he lost his balance, fell forward on her and then she fell to the ground with the weight of his body on her leg. She ended up having a displaced and depressed right lateral tibial plateau fracture on October 04. Up until that point she had been taking care of him at home. It was getting increasingly more burdensome because of his dementia and his behavioral disturbances. When she came into the hospital she could no longer take care of him and had to find emergency care for him. From his first marriage , he does have a daughter but she is with alcohol abuse. A son who is loving but cannot deal with the current situation and is "pretending this is not happening". Another daughter who would like to take over and direct his care with the idea that "he will get better". So for a short time, one of his daughters was able to take care of him while she was in the hospital. Then they both went to go live at a care home facility until she can get back on her feet and go back home. She opted him to keep him in the memory care unit. While there he rolled out of bed and had a pelvic fracture. Sent home from the emergency room and r eturned the next day with pneumonia. He was admitted November 03 with bilateral pneumonia. Initially had a response but then had acute respiratory failure requiring a nonrebreather in the late evening hours of the into the container filler hours of the . He did it again yesterday afternoon in the late afternoon of the . Today he is on 15 L. O2 sats are in the mid 80s. He has occasional conversations with this. Tries to interject. Wants to go home and is convinced we are keeping him prisoner and keeps on asking his daughter and his if "we can make a break for it".She continues to reiterate her concern for using opiates, Ativan, Haldol. She feels that those are all contraindicated Lewy body dementia and make his behavioral situation worse. Objective/Medical Story: While his blood pressure stayed steady, his respiratory status continues to be minimally compensated. He is on 13 to 15 L oxygen mask. 82 to 89% saturated. Respiratory rate will shoot up to 28 and his pulse rate which should up to 120. He does respond to the morphine and is calmer. But at times will use rib retraction and abdominal wall muscles to breathe. continues to be clear that he is not to be transferred to ICU for BiPAP, or intubation or chest compressions. After spending 30 minutes in the room with him and his , as he valiantly tries throughout to interject into the conversation, she has opted to transition him to comfort measures. Looking at the big picture, even if he recovers from this, he will have to return to a care home facility. The odds are that he will then be rehospitalized again for yet another pneumonia or infection or fall. He would not want to live his life this way. Because he lives in a assisted living facility/memory care unit, he would not be able to return there unless it was with hospice. As such she is asking us to transition him to hospice. Goals of Care: For him to be comfortable. Not to be in such respiratory distress and to struggle to breathe. Plan: 1. Transition to comfort measures only. 2. Stop labs, x-rays, vitals 3. Stop antibiotics and focus on medication such as Tylenol, Ativan, Haldol, morphine 4. Contact hospice Code Status: Do Not Attempt Resuscitation Time spent on advance care plannin minutes
[2020-11-11 16:04] VITALS: BP 147/86
[2020-11-11 16:45] LABS: B. PARAPERTUSSIS- RESP PCR PAN NOT DETECTED; B. PERTUSSIS- RESP PCR PANEL NOT DETECTED; C. PNEUMONIAE- RESP PCR PANEL NOT DETECTED; CORONAVIRUS 229E-RESP PCR NOT DETECTED; CORONAVIRUS HKU1-RESP PCR NOT DETECTED; CORONAVIRUS NL63-RESP PCR NOT DETECTED; CORONAVIRUS OC43-RESP PCR NOT DETECTED; HUMAN METAPNEUMOVIRUS NOT DETECTED; INFLUENZA A- RESP PCR PANEL NOT DETECTED; INFLUENZA B - RESP PCR PANEL NOT DETECTED; M. PNEUMONIAE- RESP PCR PANEL NOT DETECTED; PARAINFLUENZA VIRUS 1 NOT DETECTED; PARAINFLUENZA VIRUS 2 NOT DETECTED; PARAINFLUENZA VIRUS 3 NOT DETECTED; PARAINFLUENZA VIRUS 4 NOT DETECTED; RHINOVIRUS/ENTEROVIRUS NOT DETECTED; RSV- RESP PCR PANEL NOT DETECTED; SARS-CoV-2 -RESP PCR PANEL NOT DETECTED
[2020-11-11] MEDS: QUEtiapine 25 MG TABLET PO SCH (20:30)
[2020-11-12] MEDS: SODIUM CHLORIDE FLUSH 0.9% 10 ML SYRINGE IVP SCH ×2 (01:30→08:39)
[2020-11-12] MEDS: MORPHINE SOL 10 MG/0.5 ML ORAL SYRINGE PO PRN ×5 (03:16→15:12)
[2020-11-12] MEDS: FLUDROCORTISONE 0.1 MG TABLET PO SCH (08:38)
[2020-11-12] MEDS: diltiaZEM CD 120 MG CAPSULE PO SCH (08:38)
[2020-11-12] MEDS: DOCUSATE SODIUM 250 MG CAPSULE PO SCH (08:38)
[2020-11-12] MEDS: SENNA 8.6 MG TABLET PO SCH (08:38)
[2020-11-12] MEDS: CARBIDOPA/LEVODOPA 25 MG/100 MG TABLET PO SCH ×2 (08:38→13:20)
[2020-11-12] MEDS: DIGOXIN 125 MCG TABLET PO SCH (08:38)
[2020-11-12] MEDS: polyethylene glycoL 3350 17 GM PACKET PO SCH (08:38)
[2020-11-12] MEDS: FUROSEMIDE 20 MG TABLET PO SCH (08:38)
--- NOTE | 2020-11-12 11:44 | Discharge Plan ---
Discharge Plan for SNF / [facility] - Discharge Plan And Transition Orders Problem Reviewed?: Yes Disposition: 50 Hospice/Home DC/Xfer Condition: Poor Allergies and Adverse Reactions: Allergies Allergy/AdvReac Type Severity Reaction Status Date / Time Interferons Allergy Severe Anaphylaxis Verified 11/02/20 12:35 beef derived (bovine) Allergy Unknown Verified 11/10/20 12:37 pork derived (porcine) Allergy Unknown Verified 11/10/20 12:37 ribavirin Allergy Unknown Verified 11/02/20 12:35 Benzodiazepines AdvReac Unknown Verified 11/02/20 12:35 Anesthesia AdvReac Unknown Uncoded 11/02/20 12:35 Anticholinergics AdvReac Unknown Uncoded 11/02/20 12:35 Antipsychotics AdvReac Unknown Uncoded 11/02/20 12:35 Opiates AdvReac Unknown Uncoded 11/02/20 12:35 Sedatives AdvReac Unknown Uncoded 11/02/20 12:35 Health Concerns: You have severe dementia due to Lewy body dementia. This is also resulted in a movement disorder with freezing of movements, tremors, and frequent falls. You are currently living in a memory care unit. With one of your falls you rolled out of bed and suffered a pelvic fracture. You were seen in the emergency room and were evaluated. You did not need surgery and you were sent back to your memory care unit. However you return to us with worsening lethargy, low oxygen and we found you to have pneumonia. Unfortunately you have not done well with a pneumonia. In spite of broad-spectrum antibiotics you have had increasing need for pneumonia to the point that we were considering transferring you to the intensive care unit and putting you on life support for your breathing. After a long discussion with your , it was decided to support you without transfer to ICU. In spite of continued broad-spectrum antibiotics, IV fluids, nebulizers, and high flow oxygen, you have not turned the corner. As such, after several discussions with your , we are transitioning you to hospice care due to the overall poor prognosis of your current illness superimposed on the poor prognosis of your progressive Lewy body dementia. Plan of Treatment: Return to memory care unit with use of morphine, Tylenol, anticholinergics for excessive secretions, etc. Care Goals: To peacefully without uncontrolled discomfort in your bed. Hospice will be helping your memory care unit staff Assessment: Patient is unable to understand the overall course of stay, treatment, and this was all discussed with his . - SNF / [facility] Transition Orders Under the care of (Name): Imer Bill MD Discharge Diagnosis: 1. Acute respiratory failure with hypoxia due to #2. Patient is not responding to treatment and prognosis is poor 2. Pneumonia 3. Cor pulmonale 4. Fracture of superior pubic ramus 5. Lewy body dementia with behavioral disturbance 6. Movement disorder with frequent falls 7. Orthostatic hypotension 8. Hypokalemia 9. Iron deficiency anemia, chronic 10. Chronic atrial fibrillation 11. Hypernatremia resolved Other Notification Orders: Call PCP for symptoms of fever, pain, facial grimacing, severe respiratory distress Additional Bowel Program Orders: If no BM after 2 days, nurse may give M.O.M. 30ml PO PRN and/or ducolax Supp 1 TX and/or MARIA T 250mg P.O., and/or senna 1-2 tabs PO. On day 3 nurse may give repeat above order until residents constipation is resolved. Oxygen Orders: ER and oxygen by nasal cannula. The goal is strictly for comfort and not in oxygen saturation. You will not be able to achieve adequate oxygenation. Medication Orders: PLEASE REFER TO THE DISCHARGE MEDICATION LIST. Insulin Orders?: No - Medications New Prescriptions: Morphine Oral Soln [Roxanol] 10 mg PO Q2HR PRN #20 ml PRN Reason: Pain LORazepam [Lorazepam INTENSOL] 2 mg PO Q2H PRN #20 ml PRN Reason: Agitation - Diet Type: No added salt Texture: Puree Liquids: Thin May have monthly special meal: No
--- NOTE | 2020-11-14 19:01 | DISCHARGE SUMMARY ---
"Discharge Summary Admit Date: 11/03/20 Discharge Date: 11/12/20 Discharging Provider: Modesta Khoury MD Primary Care Provider: Gagandeep Wallace and Imer Bill MD Code Status: Do Not Attempt Resuscitation Condition at Discharge: Poor Discharge Disposition: 50 Hospice/Home DC/Xfer - DIAGNOSES Discharge Diagnoses with Status of Each Condition: 1. Acute respiratory failure with hypoxia secondary to problem #2 2. Pneumonia 3. Cor pulmonale 4. Fracture of superior pubic ramus 5. Lewy body dementia with behavioral disturbance 6. Movement disorder with frequent falls 7. Orthostatic hypotension 8. Hypokalemia, resolved 9. Iron deficiency anemia, chronic 10. Chronic atrial fibrillation 11. 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 His dementia from his Lewy body dementia was already starting to get very problematic with his behavior and his falls. He fell on his resulting in a proximal tibial fracture in September and she had to go to a halfway facility. He went to a memory care unit while she was in SNF. She has now gotten home and he is remained in the memory care unit. He fell at the memory care unit the day before admission and x-ray showed a fracture of the superior pubic ramus. He was discharged back to the assisted living facility. Later that day he became hypoxic and dyspneic with O2 sats of 70 to 80%. He came to the ER via EMS and was found to have bilateral infiltrates. CT of the head was without acute changes. He required Ativan in the ER for intermittent agitation. Chest thorax CTA was without pulmonary embolism, he had bilateral small effusions. No adenopathy, no pericardial effusion. He had bilateral pulmonary opacities come patible with pneumonia ARDS or edema. - CONSULTS | PROCEDURES Procedures: Head CT without acute intracranial process. Chest/thorax CT as above Chest x-ray on November 05 and showed diffuse patchy bilateral opacities representing multi lobar pneumonia or pulmonary edema or both. - HOSPITAL COURSE Hospital Course: He was placed on empiric antibiotic therapy for pneumonia. And he actually seemed to improve and start to need less oxygen. He then suddenly worsened and had a waxing and waning roller coaster course of improving, then deteriorating. With the second episode, struggled with what to guide us with. She recognize that his quality of life is deteriorated to the point that he would not want to be living life this way. He was now in a assisted living facility which is something he did not want. This was in the past when he was of sound mind and body. After many conversations, transitioned him to hospice. He was transferred back to his memory care unit with hospice service on board. He was discharged in poor condition. Unconscious, heart rate 120, respiration 26, 83% on 14 L oxygen mask. He is mouth breathing, shotty cervical adenopathy but no stiff neck. Coarse upper airway gurgling sounds. Abdomen soft, nontender. Using muscles from his abdominal wall to breathe. Hypoactive bowel sounds, nontender. Extremities still warm. Greater than 30 minutes was spent coordinating discharge. - ALLERGIES Allergies/Adverse Reactions: Allergies Allergy/AdvReac Type Severity Reaction Status Date / Time Interferons Allergy Severe Anaphylaxis Verified 11/02/20 12:35 beef derived (bovine) Allergy Unknown Verified 11/10/20 12:37 pork derived (porcine) Allergy Unknown Verified 11/10/20 12:37 ribavirin Allergy Unknown Verified 11/02/20 12:35 Benzodiazepines AdvReac Unknown Verified 11/02/20 12:35 Anesthesia AdvReac Unknown Uncoded 11/02/20 12:35 Anticholinergics AdvReac Unknown Uncoded 11/02/20 12:35 Antipsychotics AdvReac Unknown Uncoded 11/02/20 12:35 Opiates AdvReac Unknown Uncoded 11/02/20 12:35 Sedatives AdvReac Unknown Uncoded 11/02/20 12:35 - MEDICATIONS Home Medications: Ambulatory Orders Medication Instructions Recorded Confirmed Digoxin 125 mcg PO DAILY 11/03/17 11/03/20 Fludrocortisone [Florinef] 0.2 mg PO DAILY 03/26/19 11/03/20 Acetaminophen [Acetaminophen Extra 500 mg PO Q4H PRN 11/03/20 11/03/20 Strength] Polyethylene Glycol 3350 [Glycolax] 17 g PO DAILY 11/03/20 11/03/20 dilTIAZem HCL [Diltiazem 24Hr ER 120 mg PO DAILY 11/03/20 11/03/20 (Xr)] Acetaminophen [Tylenol] 640 mg PO Q4H PRN 11/12/20 Carboxymethylcellulose 1% Opht 1 drops EACHEYE QID PRN drops 04/01/21 [Refresh 1% Ophth Drops] Glycopyrrolate [Robinul] 0.2 mg SUBQ Q4H PRN vial 11/12/20 LORazepam [Lorazepam INTENSOL] 2 mg PO Q2H PRN #20 ml 11/12/20 Morphine Oral Soln [Roxanol] 10 mg PO Q2HR PRN #20 ml 11/12/20 QUEtiapine [SEROquel] 12.5 mg PO QPM tablet 11/12/20 - LABS Result Diagrams: 11/10/20 05:47 11/10/20 05:47"
--- OUTSIDE RECORDS SUMMARY | 2020-11-17 15:43 | EXTERNAL MEDICAL SUMMARY RPT | Continuity of Care Document ---
:1940 Demographics Phone Unavailable Preferred Language Unknown Marital Status Unknown Buddhism Affiliation Unknown Race Unknown Ethnic Group Unknown Author Organization [facility] Address [address] [phone] Phone Social History date description facility [phone]
== END 2020-11-12 15:40 | disposition hospice, home (50) | DRG 189 ==
LOC: EDUNIT# → ED 02:03 → MS2 08:07
PROVIDERS: ADMIT Internal Medicine; ATTEND Specialist
DX: J96.01 Acute respiratory failure with hypoxia (principal); R09.02 Hypoxemia; J18.9 Pneumonia, unspecified organism; R40.20 Unspecified coma; F02.81 Dementia in other diseases classified elsewhere, unspecified severity, with behavioral disturbance; G25.9 Extrapyramidal and movement disorder, unspecified; R41.82 Altered mental status, unspecified; R58 Hemorrhage, not elsewhere classified; I48.20 Chronic atrial fibrillation, unspecified; E87.0 Hyperosmolality and hypernatremia; S32.512K Fracture of superior rim of left pubis, subsequent encounter for fracture with nonunion; I27.81 Cor pulmonale (chronic); G31.83 Neurocognitive disorder with Lewy bodies; I95.1 Orthostatic hypotension; E87.6 Hypokalemia; D50.9 Iron deficiency anemia, unspecified; Z91.81 History of falling; Z51.5 Encounter for palliative care; Z20.822 Contact with and (suspected) exposure to COVID-19; R79.89 Other specified abnormal findings of blood chemistry; R45.1 Restlessness and agitation; J44.9 Chronic obstructive pulmonary disease, unspecified; Z87.891 Personal history of nicotine dependence; Z66 Do not resuscitate; K59.00 Constipation, unspecified
CPT/HCPCS: 0202U; 36415; 36600; 80048; 80053; 80162; 81001; 81003; 82272; 82607; 82746; 82803; 83540; 83605; 83690; 83735; 83880; 84466; 84484; 85025; 87086; 87640; 93005; 93306; 94640; 96374; 96375; 99285

== ENCOUNTER 2020-11-12 15:32 | Outpatient (CLI) | payer MEDICARE ==
--- OUTSIDE RECORDS SUMMARY | 2020-11-18 01:21 | EXTERNAL MEDICAL SUMMARY RPT | Continuity of Care Document ---
:1940 Demographics Phone Unavailable Preferred Language Unknown Marital Status Unknown Jewish Affiliation Unknown Race Unknown Ethnic Group Unknown Author Organization [facility] Address [address] [phone] Phone Social History date description facility [phone]
== END 2020-11-12 15:33 | disposition other institution (70) ==
LOC: EMS 15:32
PROVIDERS: ATTEND Specialist
DX: G31.83 Neurocognitive disorder with Lewy bodies (principal); S32.519D Fracture of superior rim of unspecified pubis, subsequent encounter for fracture with routine healing; J96.01 Acute respiratory failure with hypoxia; I48.20 Chronic atrial fibrillation, unspecified; Z74.01 Bed confinement status
CPT/HCPCS: A0425; A0428